=== PATIENT | female | born 1965 | race Caucasian/White ===

== ENCOUNTER → 2018-03-05 16:54 | Outpatient (CLI) | payer OTHER, SELFPAY ==
[2018-03-05 15:15] VITALS: BMI 35.8
[2018-03-12 11:17] LABS: HPV APTIMA, High Risk Negative (Negative)
--- OUTSIDE RECORDS SUMMARY | 2018-04-21 22:07 | XMS RPT_ITS ---
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 normal. No oropharyngeal exudate, posterior oropharyngeal edema, posterior oropharyngeal erythema or tonsillar abscesses. Eyes: Conjunctivae and lids are normal. Cardiovascular: Normal rate, regular rhythm, S1 normal and S2 normal. Exam reveals no friction rub. Pulmonary/Chest: Effort normal and breath sounds normal. She has no wheezes. She has no rhonchi. She has no rales. Lymphadenopathy: Head (right side): No submental, no submandibular, no tonsillar, no preauricular, no posterior auricular and no occipital adenopathy present. Head (left side): No submental, no submandibular, no tonsillar, no preauricular, no posterior auricular and no occipital adenopathy present. Right cervical: No superficial cervical and no posterior cervical adenopathy present. Left cervical: No superficial cervical and no posterior cervical adenopathy present. Neurological: She is oriented to person, place, and time. ASSESSMENT/PLAN: 1. Acute sinusitis, recurrence not specified, unspecified location - ICD9: 461.9, ICD10: J01.90 - Will begin treatment with Augmentin 875 mg PO BID for 10 days - Supportive care with plenty of fluids, rest, and analgesia prn. Reviewed red flags with patient and when to seek care sooner. The patient indicates understanding of these issues and agrees with the plan. Edilberto Armas PA-C CNOV Observed: 01/17/2018 Status: COMPLETED Source: [place] 3:15 PM [facility] REPOSITORY Office Visit (DOLORESWA) PARISHJOSE River ([id number]) 1965 F Date Time Provider Department 01/17/18 3:15 PM EDILBERTO ARMAS) PRASHANT During your visit today, we recorded the following information about you: Temperature Pulse Respiration Blood pressure 98.5 degrees 73/minute 14/minute 138/71 Weight 92.2 kg Edilberto Armas PA-C 01/17/2018 7:38 PM Signed Subjective HPI HPI Jose Lugo is a 52 year old female who presents today for CC of sinus pain and pressure that started ~5 days. Symptoms seem to have gotten progressively worse over the past 24 hours. States that she has used Mucinex D, which she states helped relieve some of the pressure. Also used tylenol and nasal saline. BP 138/71 Pulse 73 Temp 36.9 ?C (98.5 ?F) (Tympanic) Resp 14 Wt 92.2 kg (203 lb 3.2 oz) LMP 03/24/2013 BMI 36.00 kg/m? ALLERGIES Allergen Reactions - Abdelrahman Inhibitors Other: See Comments Facial swelling - Adhesive Unknown - Adhesive Tape (Imani* Rash - Latex Unknown - Lisinopril Unknown - Seasonal Allergies Intolerance - Sulfa (Sulfonamide * Hives ACTIVE PROBLEM LIST Depression Psoriatic Arthritis (Hcc) Allergic Reaction Benign Essential Hypertension Family History Problem Relation Age of Onset - Ovarian cancer Paternal Grandmother - other (Diabetes mellitus [Other]) Unknown colon/prostate CA - Cancer Father leukemia - other (Heart disease [Other]) Unknown - Hypertension Unknown - other (HTN [Other]) Mother - other (DM2 [Other]) Mother - other (M I [Other]) Mother - other (HTN [Other]) Father - other (DM2 [Other]) Father - other (MDS [Other]) Father - other (M I [Other]) Paternal Grandfather - Ovarian cancer Paternal Grandmother Social History Marital status: Spouse name: Years of education: Number of children: Social History Main Topics Smoking status: Former Smoker Packs/day: 0.00 Years: 0.00 Quit date: 10/09/1992 Smokeless tobacco: Never Used Alcohol use: Yes Comment: social Drug use: No Other Topics Concern Caffeine Concern Yes Comment: Uses caffeine; Amount: moderate (equiv to 1-3 8oz coffee/day) Review of Systems Constitutional: Negative for chills, fever and malaise/fatigue. HENT: Positive for congestion and sinus pain. Negative for ear pain and sore throat. Respiratory: Negative for cough, sputum production, shortness of breath and wheezing. Cardiovascular: Negative for chest pain. Neurological: Negative for headaches. Objective Physical Exam Constitutional: She is oriented to person, place, and time and well-developed, well-nourished, and in no distress. Vital signs are normal. HENT: Head: Normocephalic. Right Ear: Tympanic membrane, external ear and ear canal normal. No drainage. Tympanic membrane is not perforated, not erythematous, not retracted and not bulging. No middle ear effusion. Left Ear: Tympanic membrane and ear canal normal. No drainage. Tympanic membrane is not perforated, not erythematous, not retracted and not bulging. No middle ear effusion. Nose: Mucosal edema and rhinorrhea present. Right sinus exhibits maxillary sinus tenderness. Right sinus exhibits no frontal sinus tenderness. Left sinus exhibits maxillary sinus tenderness. Left sinus exhibits no frontal sinus tenderness. Mouth/Throat: Uvula is midline and mucous membranes are normal. No oropharyngeal exudate, posterior oropharyngeal edema, posterior oropharyngeal erythema or tonsillar abscesses. Eyes: Conjunctivae and lids are normal. Cardiovascular: Normal rate, regular rhythm, S1 normal and S2 normal. Exam reveals no friction rub. Pulmonary/Chest: Effort normal and breath sounds normal. She has no wheezes. She has no rhonchi. She has no rales. Lymphadenopathy: Head (right side): No submental, no submandibular, no tonsillar, no preauricular, no posterior auricular and no occipital adenopathy present. Head (left side): No submental, no submandibular, no tonsillar, no preauricular, no posterior auricular and no occipital adenopathy present. Right cervical: No superficial cervical and no posterior cervical adenopathy present. Left cervical: No superficial cervical and no posterior cervical adenopathy present. Neurological: She is oriented to person, place, and time. ASSESSMENT/PLAN: 1. Acute sinusitis, recurrence not specified, unspecified location - ICD9: 461.9, ICD10: J01.90 - Will begin treatment with Augmentin 875 mg PO BID for 10 days - Supportive care with plenty of fluids, rest, and analgesia prn. Reviewed red flags with patient and when to seek care sooner. The patient indicates understanding of these issues and agrees with the plan. MARBELLA Rivera PA-C 01/17/2018 3:24 PM Signed [facility] med heat treater helper as good alternative to netti pot - can get at any pharmacy [facility] or rhinaris gel- apply heft dollop to area 1-2 x/day for a week or two Referring Provider: SELF [200] Allergies As of Date: 01/17/2018 Noted Allergy Reaction ABDELRAHMAN INHIBITORS 11/07/2015 14 - Other: See Comments Comments: Facial swelling ADHESIVE 11/07/2015 16 - Unknown ADHESIVE TAPE (ROSINS) 11/06/2012 2 - Rash LATEX 11/07/2015 16 - Unknown LISINOPRIL 11/07/2015 16 - Unknown SEASONAL ALLERGIES 07/20/2010 5 - Intolerance SULFA (SULFONAMIDE ANTIBIOTICS) 07/20/2010 4 - Hives Date Reviewed: 01/17/2018 Reviewed by: Vanita Brantley Ma - Fully Assessed Reason for Visit: Sinus Problem [99] Cmt: x5 days Reason For Visit History Recorded Primary Visit Diagnosis:Acute sinusitis, recurrence not specified, unspecified location [J01.90] Order(s):amoxicillin-clavulanic acid (AUGMENTIN) 875-125 mg per tabletTake 1 tablet by mouth twice daily for 10 days.Disp: 14 tabletRfl: 0 Prescriptions as of 01/17/2018 Sig: VORTIOXETINE 10 MG TABLET Take 10 mg by mouth once yue* CYCLOBENZAPRINE 10 MG TABLET Take 1 tablet by mouth every * LOSARTAN 50 MG TABLET TAKE 1 TABLET BY MOUTH ONCE D* VENLAFAXINE 37.5 MG TABLET TAKE 1 TABLET BY MOUTH ONCE D* ALBUTEROL SULFATE 2.5 MG/3 ML* Use 3 mL via nebulizer every * ALBUTEROL SULFATE HFA 90 MCG/* Inhale 2 Puffs as instructed * EPINEPHRINE 0.3 MG/0.3 ML INJ* Use as directed MULTI VITAMIN ORAL Take 1 tablet by mouth once d* CYANOCOBALAMIN (VIT B-12) 100* Take 100 mcg by mouth once da* CHOLECALCIFEROL (VITAMIN D3) * Take 1,000 Units by mouth onc* CETIRIZINE 10 MG CAPSULE Take 1 tablet by mouth once d* AMOXICILLIN 875 MG-POTASSIUM * Take 1 tablet by mouth twice * METHYLPREDNISOLONE 4 MG TABLE* Take by mouth. As directed on* NAPROXEN 500 MG TABLET Take 1 tablet by mouth twice * SERTRALINE 100 MG TABLET TAKE ONE TABLET BY MOUTH DAILY FLUTICASONE 100 MCG-VILANTERO* Inhale 1 Inhalation as instru* Medication notes this encounter METHYLPREDNISOLONE 4 MG TABLETS IN A DOSE PACK >> Vanita Brantley Ma 01/17/2018 3:12 PM >> VANITA BRANTLEY MA Jan 17, 2018 3:12 PM completed NAPROXEN 500 MG TABLET >> Vanita Brantley Ma 01/17/2018 3:12 PM >> VANITA BRANTLEY MA SatJan 17, 2018 3:12 PM Not taking SERTRALINE 100 MG TABLET >> Vanita Brantley Cassandra 01/17/2018 3:12 PM >> VANITA BRANTLEY MA SatJan 17, 2018 3:12 PM Not taking FLUTICASONE 100 MCG-VILANTEROL 25 MCG/DOSE POWDER FOR INHALATION >> Vanita Brantley Cassandra 01/17/2018 3:11 PM >> VANITA BRANTLEY MA SatJan 17, 2018 3:11 PM Not using Problem List As Of Date 01/17/2018 Noted Resolved Depression [F32.9] Psoriatic arthritis [L40.50] Allergic reaction [T78.40XA] INVALID FOR* Benign essential hypertension [I10] Other instructions from your clinician: [facility] med heat treater helper as good alternative to netti pot - can get at any pharmacy [facility] or rhinaris gel- apply heft dollop to area 1-2 x/day for a week or two Prescriptions ordered this encounter Disp Refills Start End AMOXICILLIN 875 MG-POTASSIUM CLAVULA* 14 t* 0 01/17/2018 01/27/2018 Route: ORAL Sig: Take 1 tablet by mouth twice daily for 10 days. Encounter Status:Closed by EDILBERTO ARMAS on 01/17/18 CNCO Observed: 12/23/2017 Status: COMPLETED Source: [place] 12:00 AM [facility] RE[facility] Letter Text Fanny Peoples MD [facility] [address] [place] [address] Jose Lugo December 23, 2017 Jose Lugo [address] [place], [place] [id number] Dear Jose Lugo: Due to a change in your provider's schedule, it has become necessary to cancel the following appointment: Fanny Peoples MD Date: 02-07-18 Time: 3:30 We apologize for any inconvenience to you, however your provider would still like to see you. Please call us at [phone] to reschedule your appointment. Sincerely, Appointment Staff MDRD EGFR Collected: 11/23/2017 Status: F Source: [facility] 9:33 AM HEALTH SYSTEM REPOSITORY TYPE CODE TESTS RESULT OUT OF RANGE REFERENCE UNITS LAB LGFRF(LOINC >60mL/min/1.73m ) 2 eGFR >60 Result Comment: If the patient is , multiply the result by 1.210. Performed By: #### LGFR #### [facility] [address] [place], [place] [address] HEP. B SURFACE AG Collected: 11/23/2017 Status: F Source: [facility] 8:27 AM HEALTH SYSTEM REPOSITORY TYPE CODE TESTS RESULT OUT OF REFERENCE UNITS RANGE LAB HBSA(LOINC Negative ) Hep.B Surface Negative Ag Performed By: #### HBSAG #### [facility] [address] [place] [address] QUANTIFERON (RAPD TB) Collected: 11/23/2017 Status: F Source: [facility] 8:27 AM [facility] REPOSITORY TYPE CODE TESTS RESULT OUT OF REFERENCE UNITS RANGE LAB QUANX(LOIN C) Quantiferon (Rapd TB) SEE BELOW Result Comment: TB Result Negative NEGAT TB Antigen Response 0.00 <0.35 IU/mL Mitogen Response >10.00 >0.49 IU/mL Interpretation SEE BELOW No evidence of current or previous infection with Mycobacterium tuberculosis. Performing Laboratory: [facility] [address] [place] [address] Performed By: #### QUANX #### [facility] [address] [place] [address] HEMOGRAM/DIFF Collected: 11/23/2017 Status: F Source: [facility] 8:24 AM HEALTH SYSTEM REPOSITORY TYPE CODE TESTS RESULT OUT OF REFERENCE UNITS RANGE LAB LWBC(LOINC 4.8-10.8 thou/cmm ) WBC 7.8 LAB LRBC(LOINC 4.20-5.40 mil/cmm ) RBC 4.68 LAB LHGB(LOINC 12.0-16.0 g/dL ) Hgb 12.4 LAB LHCT(LOINC 37.0-47.0 % ) Hct 38.9 LAB LMCV(LOINC 81.0-99.0 fl ) MCV 83.1 LAB LMCH(LOINC 27.0-31.0 pg ) Low MCH 26.5 LAB LMCHC(LOIN 32.0-36.0 % C) Low MCHC 31.9 LAB LRDW(LOINC 11.5-15.9 % ) RDW 14.6 LAB LPLT(LOINC 150-400 thou/cmm ) Platelet 301 LAB LMPV(LOINC 7.1-10.5 fl ) MPV High 11.5 LAB LSEGT(LOIN % C) Seg Neutrophil 55.5 LAB LLYMP(LOIN % C) Lymphocyte 32.6 LAB LMNO(LOINC % ) Monocyte 7.1 LAB MAYI(LOINC % ) Eosinophil 4.0 LAB LBASO(LOIN % C) Basophil 0.8 LAB LSEGN(LOIN 3.00-5.67 thou/cmm C) Abs. Neut (ANC) 4.34 LAB LLYMN(LOIN 1.50-3.65 thou/cmm C) Abs. Lymph 2.54 LAB LMONN(LOIN 0.20-1.00 thou/cmm C) Abs. Gosper 0.55 LAB LEOSN(LOIN 0.00-0.41 thou/cmm C) Abs. Eosin 0.31 LAB LBASN(LOIN 0.00-0.08 thou/cmm C) Abs. Baso 0.06 Performed By: #### LCBCD #### [place] [address] BASIC PANEL Collected: 11/23/2017 Status: F Source: [facility] 8:24 AM HEALTH SYSTEM REPOSITORY TYPE CODE TESTS RESULT OUT OF REFERENCE UNITS RANGE LAB DISASTER DIRECTOR(LOINC) 136-145 mEq/L Sodium Blood 137 LAB LK(LOINC) 3.5-5.1 mEq/L Potassium Blood 3.8 LAB LCL(LOINC) 98-107 mEq/L Chloride Blood 106 LAB LCO2(LOINC 21-32 mEq/L ) CO2 Blood 28 LAB LGLU(LOINC 70-99 mg/dL ) Glucose High Blood 105 LAB LBUN(LOINC 7-25 mg/dL ) BUN Blood 12 LAB LCREA(LOIN 0.51-0.95 mg/dL C) Creatinine Blood 0.72 LAB LCA(LOINC) 8.5-10.1 mg/dL Calcium Blood 9.2 LAB LANGP(LOIN 8-20 C) Low Anion Gap 7 LAB LBNCR(LOIN 10-20 C) BUN/Creatinine 17 Ratio Performed By: #### LP8 #### [facility] [address] [place] [address] HEPATIC PANEL Collected: 11/23/2017 Status: F Source: [facility] 8:24 AM HEALTH SYSTEM REPOSITORY TYPE CODE TESTS RESULT OUT OF REFERENCE UNITS RANGE LAB LALB(LOINC 3.4-5.0 g/dL ) Albumin Blood 3.6 LAB LALT(LOINC 14-63 U/L ) ALT-SGPT Blood 14 LAB LALKP(LOIN 46-116 U/L C) Alk Phosphatase 113 LAB LTP(LOINC) 6.4-8.2 g/dL Total Protein 8.1 LAB LAGRT(LOIN 0.9-2.4 C) Low Albumin/Globulin 0.8 Ratio LAB LAST(LOINC 15-37 U/L ) Low AST-SGOT Blood 13 LAB LBILT(LOIN 0.2-1.0 mg/dL C) Total Bilirubin 0.4 LAB LDBIL(LOIN 0.00-0.20 mg/dL C) Direct Bilirubin <0.10 LAB LIBIL(LOIN 0.0-0.7 mg/dL C) Indirect Bilirubin 0.3 Performed By: #### LHEPA #### [facility] [address] [place] [address] MAMMOGRAM SCREENING Observed: 10/31/2017 Status: F Source: [facility] WITH CAD IF PERFORMED 11:01 AM HEALTH SYSTEM REPOSITORY Performed at [facility] APPROVED BY: Calixto Connor MD #[id number] - MAMMOGRAM SCREENING WITH CAD IF PERFORMED BILATERAL DIGITAL SCREENING MAMMOGRAM WITH CAD WITH MEDIOLATERAL OBLIQUE CRANIOCAUDAL: 10/31/2017 CLINICAL: Routine screening mammogram. Patient reports no breast problems. Comparison is made to exams dated: 10/17/2016 mammogram, 09/21/2015 mammogram, 08/04/2014 mammogram, 07/01/2013 mammogram, 05/16/2012 mammogram, and 04/25/2011 mammogram - [facility]. There are scattered fibroglandular elements in both breasts. Current study was also evaluated with a Computer Aided Detection (CAD) system. There is a biopsy clip in the right breast. No significant masses, calcifications, or other findings are seen in either breast. There has been no significant interval change. IMPRESSION: NEGATIVE There is no mammographic evidence of malignancy. A 1 year screening mammogram is recommended. Based on a modified Dory Model, this patient's calculated lifetime risk of developing breast cancer is 7.3%. The patient was notified of the results. Calixto perez/german:10/31/2017 10:47:02 Glass Etcher: Fior Sandoval (R)(Anitra), [facility] letter sent: Normal Birad 1 or 2 Mammogram BI-RADS: 1 Negative CNPN Observed: 09/18/2017 Status: COMPLETED Source: [place] 12:00 AM [facility] REPOSITORY Telephone (OBHanzo ArchivesEM) JOSE LUGO ([id number]) 1965 F Date Time Provider Department 09/18/17 FANNY PEOPLES During your visit today, we recorded the following information about you: Socorro Echeverria Psr 09/18/2017 3:23 PM Signed Jose Lugo is calling Fanny Peoples MD, MD today to request Orders for her mammogram screening. Patient has been identified by name and birthdate. Duration of symptoms: N/A Person calling: self Call patient at: at home [phone] (home) [phone] (cell) Was an appointment scheduled: Yes: Date/Time: 02-09-18 Closing statement: Socorro Echeverria Psr Fanny Peoples MD, MD 09/26/2017 12:05 AM Signed I have placed an ordrer in [employer] for such. Thank you, Fanny Peoples MD Allergies As of Date: 09/18/2017 Noted Allergy Reaction ABDELRAHMAN INHIBITORS 11/07/2015 14 - Other: See Comments Comments: Facial swelling ADHESIVE 11/07/2015 16 - Unknown ADHESIVE TAPE (ROSINS) 11/06/2012 2 - Rash LATEX 11/07/2015 16 - Unknown LISINOPRIL 11/07/2015 16 - Unknown SEASONAL ALLERGIES 07/20/2010 5 - Intolerance SULFA (SULFONAMIDE ANTIBIOTICS) 07/20/2010 4 - Hives Date Reviewed: 08/05/2017 Reviewed by: Rafi (Rn) ROSAS Shine - Fully Assessed Reason for Visit: Orders [681] Primary Visit Diagnosis:Encounter for screening mammogram for breast cancer [Z12.31] Order(s):[facility] SCREENING [[id number]] Order #: [id number] FUTURE Prescriptions as of 09/18/2017 Sig: VORTIOXETINE 10 MG TABLET Take 10 mg by mouth once yue* CYCLOBENZAPRINE 10 MG TABLET Take 1 tablet by mouth every * METHYLPREDNISOLONE 4 MG TABLE* Take by mouth. As directed on* NAPROXEN 500 MG TABLET Take 1 tablet by mouth twice * VENLAFAXINE 37.5 MG TABLET TAKE 1 TABLET BY MOUTH ONCE D* SERTRALINE 100 MG TABLET TAKE ONE TABLET BY MOUTH DAILY FLUTICASONE 100 MCG-VILANTERO* Inhale 1 Inhalation as instru* ALBUTEROL SULFATE 2.5 MG/3 ML* Use 3 mL via nebulizer every * ALBUTEROL SULFATE HFA 90 MCG/* Inhale 2 Puffs as instructed * EPINEPHRINE 0.3 MG/0.3 ML INJ* Use as directed MULTI VITAMIN ORAL Take 1 tablet by mouth once d* CYANOCOBALAMIN (VIT B-12) 100* Take 100 mcg by mouth once da* CHOLECALCIFEROL (VITAMIN D3) * Take 1,000 Units by mouth onc* CETIRIZINE 10 MG CAPSULE Take 1 tablet by mouth once d* Problem List As Of Date 09/18/2017 Noted Resolved Depression [F32.9] Psoriatic arthritis [L40.50] Allergic reaction [T78.40XA] INVALID FOR* Benign essential hypertension [I10] Encounter Status:Closed by FANNY PEOPLES MD on 09/26/17 OBSOLETE Observed: 08/13/2017 Status: COMPLETED Source: [place] 12:00 AM [facility] REPOSITORY Refill (AGFAMPLO) JOSE LUGO ([id number]) 1965 F Date Time Provider Department 08/13/17 ARABELLA DOBBINS During your visit today, we recorded the following information about you: Shameka Pitts CMA 08/13/2017 9:24 AM Signed Pharmacy faxed requesting the following refill. Patient's last appointment: with Arabella Dobbins MD was 06/05/2016 Pending Prescriptions Disp Refills LOSARTAN 50 MG TABLET 30 tablet 0 Sig: TAKE 1 TABLET BY MOUTH ONCE DAILY. PEÑA: No/ Patient needs an appointment before any more refills Patient Phone numbers: [phone] (home) Request is for script(s) to be escript to pharmacy. AHRI Bailey CMA 08/16/2017 3:30 PM Signed Patient was notified and she has a new PCP in [place]. Shameka Pitts CMA Allergies As of Date: 08/13/2017 Noted Allergy Reaction ABDELRAHMAN INHIBITORS 11/07/2015 14 - Other: See Comments Comments: Facial swelling ADHESIVE 11/07/2015 16 - Unknown ADHESIVE TAPE (ROSINS) 11/06/2012 2 - Rash LATEX 11/07/2015 16 - Unknown LISINOPRIL 11/07/2015 16 - Unknown SEASONAL ALLERGIES 07/20/2010 5 - Intolerance SULFA (SULFONAMIDE ANTIBIOTICS) 07/20/2010 4 - Hives Date Reviewed: 08/05/2017 Reviewed by: Rafi TellesRn) ROSAS Shine - Fully Assessed Reason for Visit: Refill Request [94] Prescriptions as of 08/13/2017 Sig: VORTIOXETINE 10 MG TABLET Take 10 mg by mouth once yue* CYCLOBENZAPRINE 10 MG TABLET Take 1 tablet by mouth every * METHYLPREDNISOLONE 4 MG TABLE* Take by mouth. As directed on* NAPROXEN 500 MG TABLET Take 1 tablet by mouth twice * LOSARTAN 50 MG TABLET TAKE 1 TABLET BY MOUTH ONCE D* VENLAFAXINE 37.5 MG TABLET TAKE 1 TABLET BY MOUTH ONCE D* SERTRALINE 100 MG TABLET TAKE ONE TABLET BY MOUTH DAILY FLUTICASONE 100 MCG-VILANTERO* Inhale 1 Inhalation as instru* ALBUTEROL SULFATE 2.5 MG/3 ML* Use 3 mL via nebulizer every * ALBUTEROL SULFATE HFA 90 MCG/* Inhale 2 Puffs as instructed * EPINEPHRINE 0.3 MG/0.3 ML INJ* Use as directed MULTI VITAMIN ORAL Take 1 tablet by mouth once d* CYANOCOBALAMIN (VIT B-12) 100* Take 100 mcg by mouth once da* CHOLECALCIFEROL (VITAMIN D3) * Take 1,000 Units by mouth onc* CETIRIZINE 10 MG CAPSULE Take 1 tablet by mouth once d* Problem List As Of Date 08/13/2017 Noted Resolved Depression [F32.9] Psoriatic arthritis [L40.50] Allergic reaction [T78.40XA] INVALID FOR* Benign essential hypertension [I10] Encounter Status:Closed by ARABELLA DOBBINS MD on 08/13/17 PROGRESS Observed: 08/07/2017 Status: COMPLETED Source: [place] 2:55 PM [facility] REPOSITORY HNO ID: [id number] Author: Giselle Dunlap Service: (none) Author Type: LICENSED NURSE Type: Progress Notes Filed: 08/07/2017 2:56 PM Note Text: Message left on voicemail to call office to set up ED follow up appointment. Giselle Dunlap LPN CNPTOUTREACH Observed: 08/07/2017 Status: COMPLETED Source: [place] 12:00 AM [facility] REPOSITORY Patient Outreach (AGINTBA) JOSE LUGO ([id number]) 1965 F Date Time Provider Department 08/07/17 GISELLE DUNLAP LPN During your visit today, we recorded the following information about you: Giselle Dunlap LPN 08/07/2017 2:56 PM Signed Message left on voicemail to call office to set up ED follow up appointment. Giselle Dunlap LPN Allergies As of Date: 08/07/2017 Noted Allergy Reaction ABDELRAHMAN INHIBITORS 11/07/2015 14 - Other: See Comments Comments: Facial swelling ADHESIVE 11/07/2015 16 - Unknown ADHESIVE TAPE (ROSINS) 11/06/2012 2 - Rash LATEX 11/07/2015 16 - Unknown LISINOPRIL 11/07/2015 16 - Unknown SEASONAL ALLERGIES 07/20/2010 5 - Intolerance SULFA (SULFONAMIDE ANTIBIOTICS) 07/20/2010 4 - Hives Date Reviewed: 08/05/2017 Reviewed by: Rafi (Rn) ROSAS Shine - Fully Assessed Reason for Visit: Patient Outreach [Other] Cmt: ED follow up Prescriptions as of 08/07/2017 Sig: VORTIOXETINE 10 MG TABLET Take 10 mg by mouth once yue* CYCLOBENZAPRINE 10 MG TABLET Take 1 tablet by mouth every * METHYLPREDNISOLONE 4 MG TABLE* Take by mouth. As directed on* NAPROXEN 500 MG TABLET Take 1 tablet by mouth twice * LOSARTAN 50 MG TABLET TAKE 1 TABLET BY MOUTH ONCE D* VENLAFAXINE 37.5 MG TABLET TAKE 1 TABLET BY MOUTH ONCE D* SERTRALINE 100 MG TABLET TAKE ONE TABLET BY MOUTH DAILY FLUTICASONE 100 MCG-VILANTERO* Inhale 1 Inhalation as instru* ALBUTEROL SULFATE 2.5 MG/3 ML* Use 3 mL via nebulizer every * ALBUTEROL SULFATE HFA 90 MCG/* Inhale 2 Puffs as instructed * EPINEPHRINE 0.3 MG/0.3 ML INJ* Use as directed MULTI VITAMIN ORAL Take 1 tablet by mouth once d* CYANOCOBALAMIN (VIT B-12) 100* Take 100 mcg by mouth once da* CHOLECALCIFEROL (VITAMIN D3) * Take 1,000 Units by mouth onc* CETIRIZINE 10 MG CAPSULE Take 1 tablet by mouth once d* Problem List As Of Date 08/07/2017 Noted Resolved Depression [F32.9] Psoriatic arthritis [L40.50] Allergic reaction [T78.40XA] INVALID FOR* Benign essential hypertension [I10] Encounter Status:Closed by GISELLE DUNLAP LPN on 08/07/17 ED NOTE Observed: 08/05/2017 Status: COMPLETED Source: [place] 6:31 AM [facility] REPOSITORY HNO ID: [id number] Author: Rafi Shine (Rn), RN Service: Emergency Medicine Author Type: Registered Nurse Type: ED Notes Filed: 08/05/2017 6:32 AM Note Text: Pain is much improved. States she is ready to go home. Cleared for discharge by physician. TROPONIN I Collected: 08/05/2017 Status: F Source: [facility] 5:25 AM HEALTH SYSTEM REPOSITORY TYPE CODE TESTS RESULT OUT OF REFERENCE UNITS RANGE LAB LTRP(LOINC) <=0.07 ng/mL Troponin I <0.03 Performed By: #### LTRP #### [facility] [address] [place] [address] ED NOTE Observed: 08/05/2017 Status: COMPLETED Source: [place] 5:20 AM [facility] REPOSITORY HNO ID: [id number] Author: Rafi ShineRn), RN Service: Emergency Medicine Author Type: Registered Nurse Type: ED Notes Filed: 08/05/2017 5:29 AM Note Text: Patient informed: the name of medication, why we are giving it, possible side effects, what they may expect to feel, and was offered a chance to ask questions, prior to the administration of toradol and norflex. ED NOTE Observed: 08/05/2017 Status: COMPLETED Source: [place] 5:03 AM [facility] REPOSITORY HNO ID: [id number] Author: Rafi ShineRn), RN Service: Emergency Medicine Author Type: Registered Nurse Type: ED Notes Filed: 08/05/2017 5:16 AM Note Text: RT at bedside for EKG ED PROV NOTE Observed: 08/05/2017 Status: COMPLETED Source: [place] 5:01 AM [facility] REPOSITORY HNO ID: [id number] Author: Eliza Harris DO Service: Emergency Medicine Author Type: Physician Type: ED Provider Notes Filed: 08/05/2017 6:08 AM Note Text: ED Provider Note Patient Name: Jose Lugo SERVICE DATE: 08/05/17 History Patient presents with: Pain (Shoulder Pain) Jose Lugo is a 52 year old female with history of multiple chronic medical problems who presents with Pain (Shoulder Pain). Patient took aspirin prior to arrival. - Symptoms began 1.5 days prior to arrival. - Severity: moderate - Timing: constant - Quality: sharp - Pain (Shoulder Pain) is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
== END ==
PROVIDERS: Referring Provider Nurse Practitioner Women's Health; Visit Provider Nurse Practitioner Women's Health
DX: Z12.4 Encounter for screening for malignant neoplasm of cervix (principal)
CPT/HCPCS: 87624; 88175; G0145

== ENCOUNTER → 2018-11-03 11:51 | Outpatient (CLI) | payer OTHER, SELFPAY ==
[2018-03-05 15:15] VITALS: BMI 35.8
--- NOTE | 2018-11-03 11:56 | BI_ITS ---
MAMMOGRAPHY - BILATERAL SCREENING REASON FOR EXAM: Female, 53 years old. Routine annual screening examination. PERTINENT HISTORY: Non-contributory. Remote left excisional breast biopsy. TECHNIQUE: Digital bilateral breast stella (3D mammographic acquisition) in the CC and MLO projections. 2-D mediolateral oblique (MLO) and craniocaudad (CC) views of both breasts were obtained. CAD: Full Field Digital Mammography with Computer Added Detection was performed. COMPARISON: Comparison is made with prior examination dated October 17, 2016. FINDINGS: Breast Composition: There are scattered areas of fibroglandular density. There are no dominant masses or suspicious calcifications. Stable small benign-appearing bilateral axillary lymph nodes. No other significant abnormalities are identified. There has been no significant change since the prior study. BI/SCREEN MAMM (CAD) W/STELLA BILAT IMPRESSION: Stable bilateral screening mammogram. Yearly follow-up mammogram recommended. (A) ASSESSMENT CATEGORY: BIRADS Category 2: Benign. A letter regarding these results will be sent to the patient by the facility within 30 days. Approximately 10% of breast cancers are not detected by mammography. A normal mammogram should not delay biopsy of a clinically suspicious abnormality. [id number] Electronically Signed: Prakash Torres, at 13:50 EDT , Service support ,
== END ==
PROVIDERS: Family Provider Nurse Practitioner Adult Health; PCP Nurse Practitioner Adult Health; Referring Provider Nurse Practitioner Women's Health; Visit Provider Nurse Practitioner Women's Health
DX: Z12.31 Encounter for screening mammogram for malignant neoplasm of breast (principal)
CPT/HCPCS: 77063; 77067

== ENCOUNTER → 2019-11-05 10:56 | Outpatient (CLI) | payer OTHER, SELFPAY ==
[2019-09-14 10:16] VITALS: BMI 35.8
--- NOTE | 2019-11-05 10:57 | BI_ITS ---
MAMMOGRAPHY - BILATERAL SCREENING REASON FOR EXAM: Female, 54 years old. Routine annual screening examination. PERTINENT HISTORY: Non-contributory. Remote left excisional breast biopsy. TECHNIQUE: Digital bilateral breast stella (3D mammographic acquisition) in the CC and MLO projections. 2-D mediolateral oblique (MLO) and craniocaudad (CC) views of both breasts were obtained. CAD: Full Field Digital Mammography with Computer Added Detection was performed. COMPARISON: Comparison is made with prior study dated 11/03/2018. FINDINGS: Breast Composition: There are scattered areas of fibroglandular density. There are no dominant masses or suspicious calcifications. Stable small benign-appearing bilateral axillary lymph nodes. No other significant abnormalities are identified. There has been no significant change since the prior study. BI/SCREEN MAMM (CAD) W/STELLA BILAT IMPRESSION: Stable bilateral screening mammogram. Yearly follow-up mammogram recommended. (A) ASSESSMENT CATEGORY: BIRADS Category 3: Probably Benign - Short-Interval Follow-up Suggested. A letter regarding these results will be sent to the patient by the facility within 30 days. Approximately 10% of breast cancers are not detected by mammography. A normal mammogram should not delay biopsy of a clinically suspicious abnormality. [id number] Electronically Signed: Prakash Torres, at 12:30 EDT , Service support ,
== END ==
PROVIDERS: PCP Nurse Practitioner Adult Health; Referring Provider Nurse Practitioner Women's Health; Visit Provider Nurse Practitioner Women's Health
DX: Z12.31 Encounter for screening mammogram for malignant neoplasm of breast (principal)
CPT/HCPCS: 77063; 77067

== ENCOUNTER → 2020-11-07 15:23 | Outpatient (CLI) | payer OTHER, SELFPAY ==
[2020-09-14 12:47] VITALS: BMI 38.0
--- NOTE | 2020-11-07 15:26 | BI_ITS ---
MAMMOGRAPHY - BILATERAL SCREENING REASON FOR EXAM: Female, 55 years old. Routine annual screening examination. PERTINENT HISTORY: Non-contributory. Remote left excisional breast biopsy. TECHNIQUE: Digital bilateral breast stella (3D mammographic acquisition) in the CC and MLO projections. 2-D mediolateral oblique (MLO) and craniocaudad (CC) views of both breasts were obtained. CAD: Full Field Digital Mammography with Computer Added Detection was performed. COMPARISON: Comparison is made with prior study 11/05/2019 and 11/03/2018. FINDINGS: Breast Composition: There are scattered areas of fibroglandular density. There are no dominant masses or suspicious calcifications. Stable benign appearing bilateral axillary lymph nodes. No other significant abnormalities are identified. There has been no significant change since the prior study. BI/SCRN MAMM (CAD)W/STELLA BILAT IMPRESSION: Stable bilateral screening mammogram. Yearly follow-up mammogram recommended. (A) ASSESSMENT CATEGORY: BIRADS Category 2: Benign. A letter regarding these results will be sent to the patient by the facility within 30 days. Approximately 10% of breast cancers are not detected by mammography. A normal mammogram should not delay biopsy of a clinically suspicious abnormality. [id number] Electronically Signed: Prakash Torres MD at 16:01 EDT , Service support ,
== END ==
PROVIDERS: PCP Nurse Practitioner Adult Health; Referring Provider Nurse Practitioner Women's Health; Visit Provider Nurse Practitioner Women's Health
DX: Z12.31 Encounter for screening mammogram for malignant neoplasm of breast (principal)
CPT/HCPCS: 77063; 77067

== ENCOUNTER → 2021-11-08 | Outpatient (CLI) | payer OTHER, SELFPAY ==
--- NOTE | 2021-11-08 15:32 | BI_ITS ---
MAMMOGRAPHY - BILATERAL SCREENING 3-D TOMOSYNTHESIS REASON FOR EXAM: Female, 56 years old. screening for breast cancer PERTINENT HISTORY: No significant family history. TECHNIQUE: 2-D mammograms and 3-D Tomosynthesis of the breast (s) were performed. CAD was performed. COMPARISON: 11/07/2020 FINDINGS: The breast composition is composed of scattered fibroglandular density. Scattered benign calcifications are seen. No dense spiculated masses or suspicious microcalcifications are identified. No architectural distortion is identified. There is no skin thickening or retraction. There has been no significant change since the prior study. BI/SCRN MAMM (CAD)W/STELLA BILAT IMPRESSION: No mammographic signs of malignancy. Routine yearly mammograms recommended. ASSESSMENT CATEGORY: BIRADS Category 1: Negative. A letter regarding these results will be sent to the patient by the facility within 30 days. FOLLOW UP RECOMMENDATION: Yearly follow up mammogram recommended. (A) Approximately 10% of breast cancers are not detected by mammography. A normal mammogram should not delay biopsy of a clinically suspicious abnormality. Electronically Signed: Aquilino Irene MD at 16:29 EDT ,
== END | disposition home or self-care (01) ==
LOC: OPBI 15:30
PROVIDERS: PCP Nurse Practitioner Adult Health; Visit Provider Nurse Practitioner Women's Health
DX: Z12.31 Encounter for screening mammogram for malignant neoplasm of breast (principal)
CPT/HCPCS: 77063; 77067

== ENCOUNTER → 2022-10-03 | Outpatient (CLI) | payer OTHER, SELFPAY ==
[2022-10-08 14:08] LABS: HPV APTIMA, High Risk Negative (Negative)
== END | disposition home or self-care (01) ==
LOC: LABSPEC 14:31
PROVIDERS: PCP Nurse Practitioner Adult Health; Referring Provider Nurse Practitioner Women's Health; Visit Provider Nurse Practitioner Women's Health
DX: Z12.4 Encounter for screening for malignant neoplasm of cervix (principal); Z78.0 Asymptomatic menopausal state
CPT/HCPCS: 87624; 88175; G0145

== ENCOUNTER → 2022-11-09 | Outpatient (CLI) | payer OTHER, SELFPAY ==
--- NOTE | 2022-11-09 15:09 | BI_ITS ---
MAMMOGRAPHY - BILATERAL SCREENING REASON FOR EXAM: Female, 57 years old. Routine annual screening examination. PERTINENT HISTORY: Remote left excisional breast biopsy with removal of fatty benign tumor. Remote right needle biopsy. No reported personal or family history of breast cancer. TECHNIQUE: Digital bilateral breast stella (3D mammographic acquisition) in the CC and MLO projections. 2-D mediolateral oblique (MLO) and craniocaudad (CC) views of both breasts were obtained. CAD: Full Field Digital Mammography with Computer Added Detection was performed. COMPARISON: Screening mammogram from 11/08/2021, 11/07/2020. FINDINGS: Breast Composition: There are scattered areas of fibroglandular density. There are no dominant masses or suspicious calcifications. There is a stable biopsy marker in the left breast. Stable benign-appearing calcifications. No other significant abnormalities are identified. There has been no significant change since the prior study. BI/SCRN MAMM (CAD)W/STELLA BILAT IMPRESSION: Stable bilateral screening mammogram. Yearly follow-up mammogram recommended. (A) ASSESSMENT CATEGORY: BIRADS Category 2: Benign. A letter regarding these results will be sent to the patient by the facility within 30 days. Approximately 10% of breast cancers are not detected by mammography. A normal mammogram should not delay biopsy of a clinically suspicious abnormality. Electronically Signed: Aniceto Tanner DO at 8:55 EDT ,
== END | disposition home or self-care (01) ==
PROVIDERS: PCP Family Medicine; Referring Provider Nurse Practitioner Women's Health; Visit Provider Nurse Practitioner Women's Health
DX: Z12.31 Encounter for screening mammogram for malignant neoplasm of breast (principal)
CPT/HCPCS: 77063; 77067

== ENCOUNTER → 2023-11-19 | Outpatient (CLI) | payer OTHER, SELFPAY ==
--- NOTE | 2023-11-19 12:48 | BI_ITS ---
MAMMOGRAPHY - BILATERAL SCREENING REASON FOR EXAM: Female, 58 years old. Routine annual screening examination. PERTINENT HISTORY: Non-contributory. Remote left excisional breast biopsy in the right needle breast biopsy. TECHNIQUE: Digital bilateral breast stella (3D mammographic acquisition) in the CC and MLO projections. 2-D mediolateral oblique (MLO) and craniocaudad (CC) views of both breasts were obtained. CAD: Full Field Digital Mammography with Computer Added Detection was performed. COMPARISON: Comparison is made with prior examination dated November 09, 2022 and November 08, 2021. FINDINGS: Breast Composition: There are scattered areas of fibroglandular density. There are no dominant masses or suspicious calcifications. Stable small benign appearing bilateral axillary lymph nodes. No other significant abnormalities are identified. There has been no significant change since the prior study. BI/SCRN MAMM (CAD)W/STELLA BILAT IMPRESSION: Stable bilateral screening mammogram. Yearly follow-up mammogram recommended. (A) ASSESSMENT CATEGORY: BIRADS Category 2: Benign. A letter regarding these results will be sent to the patient by the facility within 30 days. Approximately 10% of breast cancers are not detected by mammography. A normal mammogram should not delay biopsy of a clinically suspicious abnormality. [id number] Electronically Signed: Prakash Torres MD at 13:41 EDT ,
== END | disposition home or self-care (01) ==
PROVIDERS: PCP Family Medicine; Referring Provider Family Medicine; Visit Provider Family Medicine
DX: Z12.31 Encounter for screening mammogram for malignant neoplasm of breast (principal)
CPT/HCPCS: 77063; 77067

== ENCOUNTER → 2024-11-27 | Outpatient (CLI) | payer OTHER, SELFPAY ==
--- NOTE | 2024-11-27 14:27 | BI_ITS ---
EXAM: SCRN MAMM (CAD)W/STELLA BILAT DATE: 11/27/2024 CLINICAL HISTORY: F, Age 59 y/o , SCREENING No family history. Remote left excisional breast biopsy. TECHNIQUE: Procedure Code: [id number] Modality: MG Procedure: SCRN MAMM (CAD)W/STELLA BILAT COMPARISON: Prior exam(s) dated November 19, 2023.. FINDINGS: TISSUE DENSITY: The breasts are almost entirely fatty. Bilateral Breast Mammographic Findings: No significant masses, calcifications or other abnormalities are identified. Stable small benign-appearing bilateral axillary lymph nodes. No suspicious masses, areas of developing architectural distortion, or suspicious calcifications. There has been no significant interval change. BI/SCRN MAMM (CAD)W/STELLA BILAT IMPRESSION: Stable bilateral screening mammogram. OVERALL FINAL ASSESSMENT BI-RADS 2: BENIGN RECOMMENDATION: Routine annual follow-up in 1 Year A letter with findings and recommendations will be mailed to the patient. Reading Location: [facility]
--- OUTSIDE RECORDS SUMMARY | 2024-11-27 20:13 | XMS RPT_ITS | CCD ---
Author Organization [facility] Care Team Providers Care Safety Instructor Name Role Phone Esterle, Giselle Attending Unavailable Esterle, Giselle Referring Unavailable Esterle, Giselle Primary Care Unavailable Mayors, Moises Attending Unavailable Esterle, Giselle Referring Unavailable Esterle, Giselle Primary Care Unavailable Mayors, Moises Attending Unavailable Esterle, Giselle Referring Unavailable Esterle, Giselle Primary Care Unavailable Galileo BINGO CHECKER.Toan TORRES Primary Care Provider Galileo CERT OCCUPATIONAL THERAPY ASST, CERT OCCUPATIONAL THERAPY ASST-C Toan Primary Care Provider Galileo CERT OCCUPATIONAL THERAPY ASST, CERT OCCUPATIONAL THERAPY ASST-C Toan Referring Provider [phone] John CERT OCCUPATIONAL THERAPY ASST, CERT OCCUPATIONAL THERAPY ASST-C Caridad Attending Provider [phone] Glaileo BINGO CHECKER.Toan TORRES Primary Care Provider Galileo BINGO CHECKER.Toan TORRES Primary Care Provider Galileo CERT OCCUPATIONAL THERAPY ASST, CERT OCCUPATIONAL THERAPY ASST-C Toan Primary Care Provider [phone] Galileo CERT OCCUPATIONAL THERAPY ASST, CERT OCCUPATIONAL THERAPY ASST-C Toan Referring Provider John CERT OCCUPATIONAL THERAPY ASST, CERT OCCUPATIONAL THERAPY ASST-C Caridad Attending Provider Allison DO, Giselle M Primary Care Provider Galileo BINGO CHECKER.Toan TORRES Primary Care Provider TOAN GURROLA Primary Care Unavailable REGAN HILL Referring Unavailable REGAN HILL Referring Unavailable TOAN GURROLA Primary Care Unavailable REGAN HILL Referring Unavailable TOAN GURROLA Primary Care Unavailable REGAN HILL Referring Unavailable TOAN GURROLA Primary Care Unavailable REGAN HILL Referring Unavailable TOAN GURROLA Primary Care Unavailable TERESITA MATUTE Attending Unavailable GISELLE COOPER Primary Care Unavailable TOAN GURROAL Primary Care Unavailable YUKIREGAN Referring Unavailable TOAN GURROLA M Primary Care Unavailable YUKIREGAN Referring Unavailable TOAN GURROLA M Primary Care Unavailable REGAN HILL Referring Unavailable Giselle Cooper MD Primary Care Provider GISELLE COOPER Primary Care Unavailable ESSIE GEE Attending Unavailable TOAN GURROLA Primary Care Unavailable TIMMY LEMUS Attending Unavailable Giselle Cooper Referring Unavailable Giselle Cooper Attending Unavailable Giselle Cooper Primary Care Unavailable Allergies Allergy Classification Reported Allergen(s) Allergy Type Date of Onset Reaction(s) Facility Adhesive Tape (1 source) Adhesive Tape Substance Allergy 6 [facility] Latex (1 source) Latex Substance Allergy 6 [facility] Pollen (1 source) Pollen Substance Allergy 1 [facility] Sulfonamides (antibiotic) (1 source) Sulfonamides (Antibiotic) Drug Allergy 1 Hives [facility] Sulfur (1 source) Sulfur Drug Allergy 9 [facility] (20 sources) Adhesive agent; Translations: [ADHESIVE] Propensity to adverse reactions to drug (disorder) [address] [facility] (20 sources) Adhesive Tape; Translations: [ADHESIVE TAPE (ROSINS)] Propensity to adverse reactions (disorder) [address] [facility] (20 sources) Angiotensin Converting Enzyme (Kiara) Inhibitors; Translations: [KIARA INHIBITORS] Propensity to adverse reactions to drug (disorder) 6 Other: See Comments, Other, Unknown [facility] (20 sources) Latex; Translations: [LATEX] Propensity to adverse reactions to drug (disorder) [address] [facility] (20 sources) Lisinopril; Translations: [LISINOPRIL] Drug Allergy [address] [facility] (20 sources) Seasonal allergy; Translations: [SEASONAL ALLERGIES] Propensity to adverse reactions (disorder) [address] [facility] (20 sources) Sulfonamides (Antibiotic); Translations: [SULFA (SULFONAMIDE ANTIBIOTICS)] Propensity to adverse reactions to drug (disorder) [address] [facility] (5 sources) Adhesive Tape Drug Intolerance 6 [facility] (5 sources) Pollen Allergy to substance 1 [facility] (5 sources) Sulfonamides (Antibiotic) Drug Intolerance 1 [facility] (5 sources) Sulfur Drug Allergy 9 [facility] (6 sources) Wound Dressing Adhesive Drug Allergy 3 Rash [facility] Medications Current Medications Medication Drug Class(es) Dates Sig (Normalized) Sig (Original) [id number] 200 actuat albuterol 0.09 mg/actuat metered dose inhaler (20 sources) beta2-Adrenergic Agonist Start: 01-25-2022 take 2.5 mg by inhalation every six hours as needed for dyspnea and dyspnea albuterol (PROVENTIL) 5 mg/mL nebu Indications: SOB (shortness of breath) INHALE 0.5 ML INSTRUCTED EVERY 6 HOURS NEEDED FOR WHEEZING/SHORTNES S OF BREATH. 20 mL 01/25/2022 Active Start: 01-18-2022 take 2.5 mg by inhal ation every six hours as needed for dyspnea and dyspnea albuterol (PROVENTIL) 5 mg/mL nebu Indications: SOB (shortness of breath) Inhale 0.5 mL as instructed every 6 hours as needed for wheezing/shortness of breath. 20 mL 0 01/18/2022 Active Start: 11-25-2019 take 2 puff(s) by in halation every four hours as needed for wheezing albuterol HFA (PROVENTIL HFA, VENTOLIN HFA) 90 mcg/actuation inhaler Inhale 2 puffs as instructed every 4 hours as needed for wheezing/shortness of breath. 18 g 09/27/2024 Active Start: 03-05-2018 take 1 puff(s) by in halation every six hours Albuterol Sulfate (Proair Hfa) 90 mcg/actuation HFA aerosol inhaler Active 1 PUFF INHALATION EVERY 6 HOURS March 05, 2018 1:00am Start: 04-09-2016 albuterol (PRO VENTIL) 2.5 mg /3 mL (0.083 %) nebulizer solution Indications: Allergic bronchitis, mild intermittent, uncomplicated Use 3 mL via nebulizer every 6 hours as needed for Wheezing/Shortness of Breath. 100 Vial 04/09/2016 Active Comment on above: Use 3 mL via nebuliz er every 6 hours as needed for Wheezing/Shortness of Breath. Inhale 2 Puffs as in structed every 4 hours as needed for Wheezing/Shortness of Breath. Inhale 0.5 mL as ins tructed every 6 hours as needed for wheezing/shortness of breath. albuterol 0.833 mg/ml / ipratropium bromide 0.167 mg/ml inhalation solution (1 source) Anticholinergic, beta2-Adrenergic Agonist Start: take 3 mL by inhalation every four hours as needed ipratropium-albut leyla (DUONEB) 0.5 mg-3 mg(2.5 mg base)/3 mL nebu Inhale 3 mL as instructed every 4 hours as needed for wheezing/shortnes s of breath. 30 each 09/27/2024 Active amoxicillin 875 mg / clavulanate 125 mg oral tablet (9 sources) Penicillin-class Antibacterial Start: 023 End: 023 take 1 tablet by mouth twice daily amoxicillin-clavu lanic acid (AUGMENTIN) 875-125 mg per tablet Indications: Bacterial sinusitis Take 1 tablet by mouth twice daily for 7 days. 14 tablet 0 04/15/2022 04/22/2022 Active Start: 01-23-2022 End: 04-15-2022 take 1 tablet by mouth every twelve hours amoxicillin-clavulanic acid (AUGMENTIN) 875-125 mg per tablet Take 1 tablet by mouth every 12 hours. 0 01/23/2022 04/15/2022 Discontinued (Course of therapy completed) Start: 07-12-2021 End: 07-19-2021 take 1 tablet by mouth every twelve hours amoxicillin-clavulanic acid (AUGMENTIN) 875-125 mg per tablet Indications: Rhinosinusitis Take 1 tablet by mouth every 12 hours for 7 days. 20 tablet 0 07/12/2021 07/19/2021 Active Comment on above: Take 1 tablet by fritz th every 12 hours for 7 days. Take 1 tablet by fritz th every 12 hours. Take 1 tablet by fritz twice daily for 7 days. azelastine hydrochloride 0.137 mg/actuat metered dose nasal spray (10 sources) Histamine-1 Receptor Antagonist Start: 5 take 2 spray(s) nasal route once daily azelastine 0.1% nasal spray Use 2 sprays in each nostril once daily. 06/25/2024 Active Start: 02-07-2022 End: 04-15-2022 take 1 spray(s) nasal route twice daily azelastine (ASTELIN, ASTEPRO) 0.1% nasal spray Indications: Environmental allergies Use 1 [place] in each nostril twice daily. 30 mL 2 02/07/2022 04/15/2022 Discontinued (Course of therapy completed) Comment on above: Use 1 [place] in each nostril twice daily. benzonatate 100 mg oral capsule (20 sources) Non-narcotic Antitussive Start: 4 take 1-2 capsules by mouth three times daily as needed for cough benzonatate (TESSALON PERLES) 100 mg capsule Indications: Acute cough Take 1-2 capsules by mouth three times a day as needed for cough. 42 capsule 09/28/2023 Active Start: 07-19-2021 End: 04-15-2022 take 1 capsule by mouth every eight hours as needed for cough and cough benzonatate (TESSALON PERLE) 100 mg capsule Indications: Cough Take 1 capsule by mouth three times daily as needed. 30 capsule 0 07/19/2021 04/15/2022 Discontinued (Course of therapy completed) Comment on above: Take 1 capsule by mo [facility] three times daily as needed. Blood Pressure Monitor (20 sources) Start: 08-31-2019 Blood Pressure Monitor Indications: Benign essential hypertension 1 Each as directed. 1 Kit 08/31/2019 Active Start: 08-31-2019 Blood Pressure Monitor Indications: Benign essential hypertension 1 Each as directed. 1 Kit 0 08/31/2019 Active Comment on above: 1 Each as directed. cetirizine hydrochloride 10 mg oral capsule (8 sources) Histamine-1 Receptor Antagonist Start: 8 take 1 capsule by mouth once daily cetirizine 10 mg capsule Active 10 MG PO DAILY March 05, 2018 1:00am take 1 tablet by mouth once yue y cetirizine (ZYRTEC) 10 mg tablet Take 1 tablet by mouth once daily. Active cholecalciferol 0.025 mg oral tablet (20 sources) Vitamin D take 1 tablet by mouth once daily cholecalciferol (VITAMIN D3) 1,000 unit tab tablet Take 1,000 Units by mouth once daily. Active Comment on above: Take 1,000 Units by mouth once daily. clobetasol propionate 0.5 mg/ml topical cream (20 sources) Corticosteroid Start: Clobetasol Active 1 APPLIC TOPICAL DAILY September 14, 2020 12:00am Start: 02-10-2020 clobetasol (TE MOVATE) 0.05 % ointment APPLY TO AFFECTED AREAS ONCE A DAY AT NIGHT TIME EXTERNALLY 14 DAY(S) 02/10/2020 Active Comment on above: APPLY TO AFFECTED AR EAS ONCE A DAY AT NIGHT TIME EXTERNALLY 14 DAY(S) dextromethorphan hydrobromide 3 mg/ml / promethazine hydrochloride 1.25 mg/ml oral solution (6 sources) Phenothiazine, Uncompetitive Y-hkfras-U-aspartate Receptor Antagonist, Sigma-1 Agonist Start: take 3 mL by mouth four times daily as needed Promethazine-DM (PHENERGAN-DM) 6.25-15 mg/5 mL syrup Indications: Acute cough Take 3 mL by mouth four times a day as needed. 118 mL 07/23/2024 Active eczema cream (2 sources) Start: eczema cream Active TOPICAL September 14, 2020 12:00am [id number] 0.3 ml EPINEPHrine 1 mg/ml auto-injector (20 sources) alpha-Adrenergic Agonist, beta-Adrenergic Agonist, Catecholamine EPINEPHrine (EPIPEN) 0.3 mg/0.3 mL auto-injector Use as directed Active Comment on above: Use as directed fluconazole 150 mg oral tablet (1 source) Azole Antifungal Start: End: take 1 tablet by mouth once fluconazole (DIFLUCAN) 150 mg tablet Take 1 tablet by mouth one time only for 1 dose. 1 tablet 0 07/19/2021 07/19/2021 Active Comment on above: Take 1 tablet by [facility] one time only for 1 dose. fluticasone propionate 0.05 mg/actuat metered dose nasal spray (20 sources) Corticosteroid Start: take 1 spray(s) nasal route once daily fluticasone (FLONASE ALLERGY RELIEF) 50 mcg/actuation nasal spray Indications: Rhinosinusitis Use 1 [place] in each nostril once daily. 1 Each 5 07/12/2021 Active Comment on above: Use 1 [place] in each nostril once daily. Fkfcprjfnyr-Ruidtlcjc-D ilanter (1 source) Anticholinergic, Corticosteroid, beta2-Adrenergic Agonist Start: Fluticasone-Umeclidin -Vilanter (Trelegy Ellipta) 100-62.5-25 mcg blister with device Active 1 INH INHALATION DAILY October 03, 2022 12:00am 12 hr guaiFENesin 600 mg extended release oral tablet (20 sources) Start: take 1 tablet by mouth every twelve hours guaiFENesin (MUCINEX) 600 mg 12 hr tablet Indications: Acute cough Take 1-2 tablets by mouth twice daily. 30 tablet 01/18/2022 Active Comment on above: Take 1-2 tablets by mouth twice daily. ibuprofen 600 mg oral tablet (20 sources) Nonsteroidal Anti-inflammatory Drug Start: take 1 tablet by mouth every six hours as needed for pain ibuprofen (MOTRIN) 600 mg tablet Indications: Right foot pain Take 1 tablet by mouth every 6 hours as needed for pain. 90 tablet 1 11/30/2021 Active Start: 09-11-2021 take 1 tablet by fritz th every six hours as needed for pain ibuprofen (MOTRIN) 400 mg tablet Indications: Lateral epicondylitis of left elbow Take 1 tablet by mouth every 6 hours as needed for pain. 60 tablet 2 09/11/2021 Active Comment on above: Take 1 tablet by fritz th every 6 hours as needed for pain. losartan potassium 50 mg oral tablet (20 sources) Angiotensin 2 Receptor Vishnu Start: take 1 tablet by mouth once daily losartan (COZAAR) 50 mg tablet Indications: Benign essential hypertension TAKE 1 TABLET BY MOUTH EVERY DAY 30 tablet 5 05/24/2022 Active Start: 03-05-2018 End: 11-30-2021 take 50 mg by mouth once daily Losartan Active 50 MG P O DAILY March 05, 2018 1:00am Comment on above: TAKE 1 TABLET BY FRITZ TH EVERY DAY Take 1 tablet by fritz th once daily. MULTIVIT &MINERALS/FERROUS FUM (MULTI VITAMIN ORAL) (20 sources) take 1 tablet by mouth once daily MULTIVIT &MINERALS/FERROUS FUM (MULTI VITAMIN ORAL) Take 1 tablet by mouth once daily. Active take 1 tablet by mouth once yue y MULTIVIT &MINERALS/FERROUS FUM (MULTI VITAMIN ORAL) Take 1 tablet by mouth once daily. 0 Active Comment on above: Take 1 tablet by fritz th once daily. multivitamin,tx-iron- minerals tablet (2 sources) Start: 03-05-2018 take 1 tablet by mouth once daily multivitamin,tx-iron -minerals tablet Active 1 TABLET PO DAILY March 05, 2018 1:00am olopatadine 2 mg/ml ophthalmic solution (1 source) Histamine-1 Receptor Inhibitor Start: 11-13-2024 take 1 drop(s) into the eye(s) once daily Olopatadine (PATADAY ONCE DAILY RELIEF) 0.2 % drop Indications: Itchy eyes Use 1 drop in both eyes once daily. 5 mL 11/13/2024 Active predniSONE 20 mg oral tablet (18 sources) Start: 11-13-2024 End: 11-16-2024 take 1 tablet by mouth once daily predniSONE (DELTASONE) 20 mg tablet Indications: Swelling of left eyelid, unspecified eyelid Take 1 tablet by mouth once daily for 3 days. 3 tablet 11/13/2024 11/16/2024 Active Start: 07-23-2024 End: 08-01-2024 take 3 tablets by mouth once daily, then take 2 tablets by mouth once daily, then take 1 tablet by mouth once daily predniSONE (DELTASONE) 10 mg tablet Indications: Acute cough , Wheezing , SOB (shortness of breath) Take 3 tablets by mouth once daily for 3 days, THEN 2 tablets once daily for 3 days, THEN 1 tablet once daily for 3 days. 18 tablet 07/23/2024 08/01/2024 Active Start: 09-28-2023 End: 10-03-2023 take 2 tablets by mouth once daily predniSONE (DELTASONE) 20 mg tablet Indications: Acute cough Take 2 tablets by mouth once daily for 5 days. 10 tablet 0 09/28/2023 10/03/2023 Active Start: 01-18-2022 End: 01-23-2022 take 5 tablets by mouth once daily, then take 4 tablets by mouth once daily, then take 3 tablets by mouth once daily, then take 2 tablets by mouth once daily, then take 1 tablet by mouth once daily predniSONE (DELTASONE) 10 mg tablet Indications: SOB (shortness of breath) Take 5 tablets by mouth once daily for 1 day, THEN 4 tablets once daily for 1 day, THEN 3 tablets once daily for 1 day, THEN 2 tablets once daily for 1 day, THEN 1 tablet once daily for 1 day. 15 tablet 0 01/18/2022 01/23/2022 Active Start: 11-30-2021 End: 01-18-2022 take 2 tablets by mouth once daily predniSONE (DELTASONE) 20 mg tablet Indications: Right foot pain Take 2 tablets by mouth once daily. 10 tablet 0 11/30/2021 01/18/2022 Discontinued Start: 10-12-2021 take 2 tablets by mo uth once daily predniSONE (DELTASONE) 20 mg tablet Indications: Lateral epicondylitis of left elbow Take 2 tablets by mouth once daily. 10 tablet 0 10/12/2021 Active Start: 07-12-2021 End: 09-11-2021 take 2 tablets by mouth once daily predniSONE (DELTASONE) 20 mg tablet Indications: Rhinosinusitis , Mild intermittent asthma with acute exacerbation Take 2 tablets by mouth once daily. 10 tablet 0 07/12/2021 09/11/2021 Discontinued Comment on above: Take 2 tablets by mo uth once daily. Take 5 tablets by mo uth once daily for 1 day, THEN 4 tablets once daily for 1 day, THEN 3 tablets once daily for 1 day, THEN 2 tablets once daily for 1 day, THEN 1 tablet once daily for 1 day. tacrolimus 0.001 mg/mg topical ointment (20 sources) Calcineurin Inhibitor Immunosuppressant Start: 04-19-19 tacrolimus (PROTOPIC) 0.1 % ointment APPLY TOPICALLY TO AFFECTED AREA ONCE EVERY MORNING 04/19/2020 Active Comment on above: APPLY TOPICALLY TO A FFECTED AREA ONCE EVERY MORNING tobramycin 3 mg/ml ophthalmic solution (1 source) Aminoglycoside Antibacterial Start: 11-14-19 End: 11-21-19 take 1-2 drop(s) into the eye(s) four times daily tobramycin (TOBREX) 0.3 % ophthalmic solution Indications: Itchy eyes , Swelling of left eyelid, unspecified eyelid Use 1-2 drops in the left eye four times daily for 7 days. 5 mL 11/13/2024 11/20/2024 Active Vit B Comp and C-Vit E-FA-Selena-Zn 0.4 mg tab (6 sources) take 1 tablet by mouth once daily Vit B Comp and C-Vit E-FA-Selena-Zn 0.4 mg tab Take 1 tablet by mouth once daily. Active vortioxetine 10 mg oral tablet (20 sources) Start: 05-25-19 take 1 tablet by mouth once daily TRINTELLIX 10 mg tablet Indications: Depression, unspecified depression type TAKE 1 TABLET BY MOUTH EVERY DAY 30 tablet 5 05/24/2022 Active Start: 05-29-2021 End: 11-30-2021 take 1 tablet by mouth once daily vortioxetine (TRINTELLIX) 10 mg tablet Indications: Depression, unspecified depression type Take 1 tablet by mouth once daily. 90 tablet 1 11/30/2021 Active Start: 03-05-2018 take 1 tablet by fritz th once daily vortioxetine 5 mg tablet Active 5 MG PO DAILY March 05, 2018 1:00am Comment on above: TAKE 1 TABLET BY FRITZ TH EVERY DAY Take 1 tablet by fritz th once daily. Completed/Discontinued Medications Medication Drug Class(es) Dates Sig (Normalized) Sig (Original) brompheniramine maleate 0.4 mg/ml / dextromethorphan hydrobromide 2 mg/ml / pseudoephedrine hydrochloride 6 mg/ml oral solution (9 sources) alpha-Adrenergic Agonist, Uncompetitive A-vdwxsp-L-asparta te Receptor Antagonist, Sigma-1 Agonist Start: 01-18-2022 End: 04-15-2022 take 5 mL by mouth four times daily as needed Brompheniramine-Pse udoeph-DM (BROMFED DM) 2-30-10 mg/5 mL syrup Indications: Viral URI Take 5 mL by mouth four times daily as needed. 118 mL 0 01/18/2022 04/15/2022 Discontinued (Course of therapy completed) Comment on above: Take 5 mL by mouth f our times daily as needed. cyclobenzaprine hydrochloride 10 mg oral tablet (5 sources) Muscle Relaxant Start: 05-20-2020 End: 09-11-2021 take 1 tablet by mouth every eight hours as needed for pain cyclobenzaprine (FLEXERIL) 10 mg tablet Indications: Medication refill Take 1 tablet by mouth every 8 hours as needed for Muscle Spasm (or pain). 14 tablet 0 05/20/2020 09/11/2021 Discontinued Comment on above: Take 1 tablet by fritz every 8 hours as needed for Muscle Spasm (or pain). estradiol 0.1 mg/ml vaginal cream (4 sources) Estrogen Start: 10-02-2021 End: 10-03-2022 Estradiol Discontinued 0 VAGINAL .COMPLEX 42.5 October 02, 2021 10:20am October 03, 2022 10:59am small amount as directed vaginal twice a week; Start: 09-14-2020 End: 10-02-2021 Estradiol Discontinued 0 VAG INAL .COMPLEX 42.5 September 14, 2020 12:00am October 02, 2021 10:20am small amount as directed vaginal every other day X 4 weeks then twice a week; ferrous sulfate 325 mg oral tablet (2 sources) Start: 03-05-2018 End: 09-14-2019 take 325 mg by mouth once daily Ferrous Sulfate Discontinued 325 MG PO DAILY March 05, 2018 1:00am September 14, 2019 10:13am hydrOXYzine hydrochloride 25 mg oral tablet (5 sources) Antihistamine Start: 12-27-2020 End: 09-11-2021 take 1 tablet by mouth three times daily as needed for anxiety hydrOXYzine HCl (ATARAX) 25 mg tablet TAKE 1 TABLET BY MOUTH 3 TIMES A DAY NEEDED FOR ANXIETY 270 tablet 1 12/27/2020 09/11/2021 Discontinued Comment on above: TAKE 1 TABLET BY FRITZ 3 TIMES A DAY NEEDED FOR ANXIETY 0.83 ml risankizumab-rzaa 90.4 mg/ml prefilled syringe (2 sources) Start: 09-14-2019 End: 09-14-2020 Risankizumab-Rzaa (Skyrizi) 75 mg/0.83 mL syringe Discontinued 0 SC per package directions September 14, 2019 12:00am September 14, 2020 12:50pm subcut PER PKG DIR venlafaxine 37.5 mg oral tablet (2 sources) Serotonin and Norepinephrine Reuptake Inhibitor Start: 03-05-2018 End: 09-14-2019 take 37.5 mg by mouth twice daily Venlafaxine Discontinued 37.5 MG PO TWICE A DAY March 05, 2018 1:00am September 14, 2019 10:13am vitamin b12 0.1 mg oral tablet (20 sources) Vitamin B12 End: 04-15-2022 take 1 tablet by mouth once daily cyanocobalamin (VITAMIN B-12) 100 mcg tab Take 100 mcg by mouth once daily. 0 04/15/2022 Discontinued (Other) Comment on above: Take 100 mcg by mout h once daily. Problems Active Problems Problem Classification Problem Date Documented Date Episodic/Chronic Asthma (20 sources) Mild intermittent asthma; Translations: [Mild intermittent asthma with (acute) exacerbation] Onset: 07-12-2021 Chronic Essential hypertension (20 sources) Benign essential hypertension; Translations: [Essential (primary) hypertension] 01-11-2016 Chronic Immunizations and screening for infectious disease (1 source) Requires varicella vaccination; Translations: [Encounter for immunization] Episodic Malaise and fatigue (1 source) Fatigue; Translations: [Other fatigue] Episodic Menopausal disorders (5 sources) Atrophic vaginitis; Translations: [Postmenopausal atrophic vaginitis] Chronic Mood disorders (20 sources) Depressive disorder; Translations: [Depression] 06-21-2012 Chronic Other circulatory disease (1 source) Elevated blood-pressure reading, without diagnosis of hypertension; Translations: [Elevated blood pressure reading without diagnosis of hypertension] Onset: 09-27-2024 Episodic Other connective tissue disease (2 sources) Lateral epicondylitis of left humerus; Translations: [Lateral epicondylitis, left elbow] Episodic Other connective tissue disease (3 sources) Pain in right foot; Translations: [Pain in right foot] Episodic Other connective tissue disease (2 sources) Plantar fasciitis; Translations: [Plantar fascial fibromatosis] Episodic Other connective tissue disease (1 source) Muscle pain; Translations: [Myalgia, unspecified site] 09-28-2023 Episodic Other connective tissue disease (1 source) Abnormal posture; Translations: [Posture abnormality] Onset: 07-10-2024 Episodic Other eye disorders (1 source) Itching of eye; Translations: [Unspecified disorder of eye and adnexa] 11-13-2024 Episodic Other eye disorders (1 source) Swelling of eyelid; Translations: [Edema of left eye, unspecified eyelid] 11-13-2024 Episodic Other eye disorders (1 source) Unspecified disorder of eye and adnexa; Translations: [Itchy eyes] Onset: 11-13-2024 Episodic Other eye disorders (1 source) Edema of left eye, unspecified eyelid; Translations: [Swelling of left eyelid, unspecified eyelid] Onset: 11-13-2024 Episodic Other inflammatory condition of skin (20 sources) Psoriasis; Translations: [Psoriasis, unspecified] 08-31-2019 Chronic Other lower respiratory disease (3 sources) Cough; Translations: [Cough] Episodic Other lower respiratory disease (2 sources) Dyspnea; Translations: [Shortness of breath] Episodic Other lower respiratory disease (1 source) Cough; Translations: [Acute cough] 07-23-2024 Episodic Other lower respiratory disease (1 source) Wheezing; Translations: [Wheezing] 07-23-2024 Episodic Other nervous system disorders (2 sources) Difficulty walking; Translations: [Difficulty in walking, not elsewhere classified] Chronic Other screening for suspected conditions (not mental disorders or infectious disease) (4 sources) Patient encounter status; Translations: [Encounter for screening mammogram for malignant neoplasm of breast] Onset: 11-18-2024 Episodic Other upper respiratory disease (2 sources) Chronic rhinitis; Translations: [Unspecified sinusitis (chronic)] Chronic Other upper respiratory disease (2 sources) Nasal congestion; Translations: [Nasal congestion] Episodic Other upper respiratory disease (1 source) Nasal sinus problem; Translations: [Other specified disorders of nose and nasal sinuses] Episodic Other upper respiratory disease (1 source) Acute bronchospasm; Translations: [Bronchospasm] Onset: 09-27-2024 Episodic Other upper respiratory infections (1 source) Bacterial sinusitis; Translations: [Chronic sinusitis, unspecified] Chronic Other upper respiratory infections (4 sources) Acute maxillary sinusitis; Translations: [Acute maxillary sinusitis, unspecified] Onset: 09-27-2024 Episodic Otitis media and related conditions (1 source) Acute transudative otitis media; Translations: [Other acute nonsuppurative otitis media, right ear] Episodic Unclassified (1 source) Physical Therapy Onset: 08-03-2024 Unclassified (1 source) Acute cough; Translations: [Acute cough] Onset: 05-01-2025 Past or Other Problems Problem Classification Problem Date Documented Da te Episodic/Chronic Allergic reactions (20 sources) Allergic reaction; Translations: [Allergy, unspecified, initial encounter] Onset: 11-26-2012 11-26-2012 Episodic Conditions associated with dizziness or vertigo (20 sources) Dizziness; Translations: [Dizziness and giddiness] Onset: 07-02-2024 07-02-2024 Episodic Lymphadenitis (8 sources) Localized enlarged lymph nodes; Translations: [Cervical lymphadenopathy] Onset: 05-02-2018 01-06-2022 Episodic Other connective tissue disease (13 sources) Abnormal posture; Translations: [Abnormal posture] Onset: 07-10-2024 07-10-2024 Episodic Other lower respiratory disease (1 source) Wheezing; Translations: [Wheezing] Onset: 07-23-2024 Episodic Other lower respiratory disease (1 source) Shortness of breath; Translations: [SOB (shortness of breath)] Onset: 07-23-2024 Episodic Sprains and strains (20 sources) Sprain of foot; Translations: [Unspecified sprain of unspecified foot, initial encounter] Onset: 05-15-2020 05-15-2020 Episodic Results Test Name Value Interpretation Reference Range Gatito ZUÑIGAOVvalarie 11-13-2024 CNOV Office Visit ([facility]ALK[facility] ) DEBORAH LUGO ([id number]) 1965 F Date Time Provider Department 11/13/24 10:45 AM ESSIE GEE During your visit today, we recorded the following information about you: Pulse Respiration Blood pressure Weight 72/minute 16/minute 152/79 98.2 kg Essie Gee APRN.CNP 11/13/2024 11:06 AM Signed PATIENT NAME: Deborah Lugo DATE OF : 1965 TODAYS' DATE: 11/13/2024 Recording using [employer] software for draft documentation of the visit was discussed with the patient/authorized outside sales representative insurance; all questions welcomed and answered. Patient/authorized outside sales representative insurance agreed to proceed Subjective: The patient is a 59-year-old female with a history of allergies, presenting with left eye swelling and itching. History of Present Illness: Left Eye Swelling and Itching: - Onset of symptoms a few days ago. - Noted significant swelling this morning, which has since decreased. - Clear discharge from the eye; denies thick, goopy discharge or crusting. - Denies photophobia, headaches, or dizziness. - Denies recent contact with individuals with conjunctivitis. - Using Opcon-A eye drops; has not used Pataday recently. - Takes Zyrtec daily and receives allergy shots, with the next dose due on Saturday. - Unable to wear contact lenses due to chronic dry eyes from allergies. Review of Systems: Eyes: (+) itchy eyes, (+) left periorbital swelling, (+) watery ocular discharge, (+) dry eyes, (-) crusting, (-) thick purulent ocular discharge, (-) photophobia, (-) pain with eye movement Ears/Nose/Mouth/Throa t: (+) nasal congestion Neurological: (-) headache, (-) dizziness Allergies: Allergies: Kiara Inhibitors Other: See Comments Comment: Facial swelling Adhesive Unknown Adhesive Tape (Imani* Rash Latex Unknown Lisinopril Unknown Seasonal Allergies Intolerance Sulfa (Sulfonamide * Hives Past Medical History: PAST MEDICAL HISTORY Diagnosis Date Acute sinusitis - Resolved Allergic rhinitis Benign essential hypertension Breast lump - Lt. '98; R '05 Cobalamin deficiency Depression Hyperlipidemia Psoriatic arthritis (HCC) Seasonal allergies Transfusion history PPH with first delivery Urticaria Past Surgical History: PAST SURGICAL HISTORY Procedure Laterality Date BREAST BIOPSY R benign LAPAROSCOPY DIAGNOSTIC with PAMELA AND TL PAST SURGICAL HISTORY OF Left Sebaceous cyst surgery - L breast PAST SURGICAL HISTORY OF 1997 Tubal ligation PAST SURGICAL HISTORY OF Laparotomy, exploration- pelvic cyst and adhesions; Dr. Rahman SKIN LESION BIOPSY left chest wall lipoma Family History: FAMILY HISTORY Problem Relation Age of Onset other (HTN) Mother other (DM2) Mother other (M I) Mother 50 Cancer Father leukemia other (HTN) Father other (DM2) Father other (MDS) Father Ovarian cancer Paternal Grandmother other (Diabetes mellitus) Other colon/prostate CA other (Heart disease) Other Hypertension Other other (M I) Paternal Grandfather Tobacco History: Tobacco Use: Quit 10/09/1992. Types: Cigarettes Medications: Current Outpatient Medications Medication Sig Dispense Refill Olopatadine (PATADAY ONCE DAILY RELIEF) 0.2 % drop Use 1 drop in both eyes once daily. 5 mL 0 predniSONE (DELTASONE) 20 mg tablet Take 1 tablet by mouth once daily for 3 days. 3 tablet 0 tobramycin (TOBREX) 0.3 % ophthalmic solution Use 1-2 drops in the left eye four times daily for 7 days. 5 mL 0 ipratropium-albuterol (DUONEB) 0.5 mg-3 mg(2.5 mg base)/3 mL nebu Inhale 3 mL as instructed every 4 hours as needed for wheezing/shortness of breath. 30 each 0 albuterol HFA (PROVENTIL HFA, VENTOLIN HFA) 90 mcg/actuation inhaler Inhale 2 puffs as instructed every 4 hours as needed for wheezing/shortness of breath. 18 g 0 azelastine 0.1% nasal spray Use 2 sprays in each nostril once daily. cetirizine (ZYRTEC) 10 mg tablet Take 1 tablet by mouth once daily. Vit B Comp and C-Vit E-FA-Selena-Zn 0.4 mg tab Take 1 tablet by mouth once daily. Promethazine-DM (PHENERGAN-DM) 6.25-15 mg/5 mL syrup Take 3 mL by mouth four times a day as needed. 118 mL 0 benzonatate (TESSALON PERLES) 100 mg capsule Take 1-2 capsules by mouth three times a day as needed for cough. 42 capsule 0 TRINTELLIX 10 mg tablet TAKE 1 TABLET BY MOUTH EVERY DAY 30 tablet 5 losartan (COZAAR) 50 mg tablet TAKE 1 TABLET BY MOUTH EVERY DAY 30 tablet 5 albuterol (PROVENTIL) 5 mg/mL nebu INHALE 0.5 ML INSTRUCTED EVERY 6 HOURS NEEDED FOR WHEEZING/SHORTNESS OF BREATH. 20 mL 0 guaiFENesin (MUCINEX) 600 mg 12 hr tablet Take 1-2 tablets by mouth twice daily. 30 tablet 0 ibuprofen (MOTRIN) 600 mg tablet Take 1 tablet by mouth every 6 hours as needed for pain. 90 tablet 1 fluticasone (FLONASE ALLERGY RELIEF) 50 mcg/actuation nasal spray Use 1 [place] in each nostril once daily. 1 Each 5 tacro (more content not included)... Normal [facility] HEALTHon 09-27-2024 ALLIED HEALTH HNO ID: [id number] Author: JAYDON HOLCOMB RT(R) Service: Radiology Author Type: Technologist Type: Allied Health Filed: 09/27/2024 08:37 Note Text: Radiology Service Progress Note PATIENT NAME: Deborah Lugo DATE OF SERVICE: September 27, 2024 TIME: 8:37 AM PATIENT IDENTITY VERIFICATION COMPLETED USING TWO (2) IDENTIFIERS: Name and Date of confirmed by patient verbally. FALL SCREENING: Has the patient had 2 falls in the last year or 1 fall with injury or currently using an Ambulatory Assistive Device (Walker, Cane, Wheelchair, Crutches, etc.)? Emergency Room Patient: Screened in ED PATIENT GENDER DATA: Assigned female at . status: : No status: NO. PATIENT RELEVANT IMPLANT DATA REVIEWED: Not Applicable PATIENT PRESENTS WITH AN IMPLANTABLE OR ATTACHED PERL DEVELOPER: No RADIOLOGY DEPARTMENT: General X-ray: Exam(s) Completed: Chest X-Ray PERIPHERAL IV DATA: Not applicable SIGNED BY: RT Manolo(R) September 27, 2024 8:37 AM Normal [facility] ED NOTEon 09-27-2024 ED NOTE HNO ID: [id number] Author: EDY BUCK RN Service: ? Author Type: Registered Nurse Type: ED Notes Filed: 09/27/2024 07:56 Note Text: Patient informed: the name of medication, why we are giving it, possible side effects, what they may expect to feel, and was offered a chance to ask questions, prior to the administration of Prednisone [facility] ED NOTE HNO ID: [id number] Author: EDY BUCK RN Service: ? Author Type: Registered Nurse Type: ED Notes Filed: 09/27/2024 07:44 Note Text: Pt arrives with c/o I am having a hard time breathing, and I am wheezing. Pt reports cough began Saturday, worsening over the last several days. Pt reports concern for pneumonia. [facility] ED PROV NOTEon 09-27-2024 ED PROV NOTE HNO ID: [id number] Author: TERESITA MATUTE MD Service: Emergency Medicine Author Type: Physician Type: ED Provider Notes Filed: 09/27/2024 09:04 Note Text: ED Provider Note Patient Name: Deborah Lugo : 1965 SERVICE DATE: 09/27/24 History Patient presents with: Shortness of Breath Cough HPI 59-year-old female with history as below, pertinent history of allergic rhinitis, allergies, mild intermittent asthma presenting with concerns for cough and shortness of breath, wheezing. History is provided by patient. Onset of symptoms 5 days ago. She says she has congestion postnasal drip, rhinorrhea that is clear. History is cough. States that she is wheezing. Has been using her albuterol inhaler intermittently without relief. States that she does have a steroid inhaler that she used last 2 days but did not get any relief. Does not use this daily. Was worried about possible pneumonia given she feels that she is still wheezing prompting ED assessment today. No fevers or chills peer denies chest pain. No abdominal pain nausea vomiting or diarrhea. PAST MEDICAL HISTORY Diagnosis Date Acute sinusitis - Resolved Allergic rhinitis Benign essential hypertension Breast lump - Lt. '98; R '05 Cobalamin deficiency Depression Hyperlipidemia Psoriatic arthritis (HCC) Seasonal allergies Transfusion history PPH with first delivery Urticaria PAST SURGICAL HISTORY Procedure Laterality Date BREAST BIOPSY R benign LAPAROSCOPY DIAGNOSTIC with PAMELA AND TL PAST SURGICAL HISTORY OF Left Sebaceous cyst surgery - L breast PAST SURGICAL HISTORY OF 1998 Tubal ligation PAST SURGICAL HISTORY OF Laparotomy, exploration- pelvic cyst and adhesions; Dr. Rahman SKIN LESION BIOPSY left chest wall lipoma FAMILY HISTORY Problem Relation Age of Onset other (HTN) Mother other (DM2) Mother other (M I) Mother 50 Cancer Father leukemia other (HTN) Father other (DM2) Father other (MDS) Father Ovarian cancer Paternal Grandmother other (Diabetes mellitus) Other colon/prostate CA other (Heart disease) Other Hypertension Other other (M I) Paternal Grandfather Social History Tobacco Use Smoking status: Former Current packs/day: 0.00 Types: Cigarettes Quit date: 10/09/1992 Years since quittin.9 Smokeless tobacco: Never Vaping Use Vaping status: Never Used Substance and Sexual Activity Alcohol use: Yes Comment: social Drug use: No Sexual activity: Not on file ALLERGIES Allergen Reactions Kiara Inhibitors Other: See Comments Facial swelling Adhesive Unknown Adhesive Tape (Imani* Rash Latex Unknown Lisinopril Unknown Seasonal Allergies Intolerance Sulfa (Sulfonamide * Hives Review of Systems Per HPI Physical Exam Vitals [09/27/24 0740] BP Pulse Temp Temp src Resp SpO2 Weight Height 184/81 (!) 94 36.4 ?C (97.5 ?F) -- 19 97 % 95.3 kg (210 lb) 1.575 m (5' 2) Physical Exam Patient is overall non-toxic and in no obvious distress. Hemodynamically stable and afebrile Clear congestion and boggy turbinates manage bilaterally Oropharynx clear Heart RRR w/o murmurs; Distal pulses intact Lungs: Expiratory wheezing noted to bases bilaterally. No increased work of breathing or excess muscle usage. Pulse oximetry maintained on room air patient is easy unlabored speech. Abd soft, NT, ND Patient moves all 4 extremities spontaneously and without deficit No pitting edema, no asymmetric calf pain or swelling Diagnostic Testing ED Labs Ordered and Reviewed COVID AND INFLUENZA A/B AND RSV PCR, EXPEDITED - Normal Narrative: Reference Range (the expected result in uninfected individuals): Not detected Procedures ED Course / Clinical Impression Clinical Impressions as of 09/27/24 0903 Upper respiratory tract infection, unspecified type Bronchospasm Elevated blood pressure reading without diagnosis of hypertension MDM / Disposition / Plan MDM Patient is a 59-year-old female with history as above presenting with complaints of cough, congestion. History and exam as above. Medical record reviewed. Additional encounters reviewed: last visit from 07/23/24 HPI obtained from patient, medical record, family member who arrives bedside Triage Vitals reviewed: Triage vital stable blood pressure slightly elevated at 184/81 heart rate of 94. Pulse oximetry 97% on room air, respiratory rate of 19 breaths/min. Patient has no documented history of hypertension reviewed elevated blood pressure. She denies any chest pain no headache, no neurodeficit. Recommended monitoring outpatient follow-up with primary care for this. DDx considered : Patient arrives with 5 days of cough, congestion. Concern at this time for asthma exacerbation, likely reactive in setting of viral URI versus possible seasonal allergies. Considered possible pneumonia but she is not having productive cough, no fevers no hypoxia Cystosol t (more content not included)... Normal [facility] XR CHEST 2V FRONTAL/LATon XR CHEST 2V FRONTAL/LAT * * *Final Report* * * DATE OF EXAM: Sep 27 2024 8:37AM LDX 5291 - XR CHEST 2V FRONTAL/LAT / PROCEDURE REASON: Cough * * * * Physician Interpretation * * * * EXAMINATION: CHEST RADIOGRAPH (2 VIEW FRONTAL and LATERAL) CLINICAL HISTORY: Cough MQ: [id number] EXAM DATE/TIME: 09/27/2024 8:37 AM COMPARISON: 02/07/2023: RESULT: Lines, tubes, and devices: None. Lungs and pleura: No consolidation. No lung mass. No pleural effusion. No pneumothorax. Cardiomediastinal silhouette: Normal cardiomediastinal silhouette. Bones and soft tissues: Unremarkable. IMPRESSION: No acute radiographic abnormality. 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 Transcribe Date/Time: Sep 27 2024 8:43A Dictated by : NASRA GALAN MD This examination was interpreted and the report reviewed and electronically signed by: NASRA GALAN MD on Sep 27 2024 8:44AM EST [id number] [facility] CNTHERAPYon 08-26-2024 CNTHERAPY OT/PT/Speech Visit (LDPT) DEBORAH LUGO ([id number]) 1965 F Date Time Provider Department 08/26/24 1:30 PM SARITHA JARAMILLO LDPT Date Time Provider Department Center 08/26/2024 1:30 PM [id number], CHRISTI LDPT [facility] Reason for Visit: PT Progress Note [5776] PT Discharge [752] Primary Visit Diagnosis:Posture abnormality [R29.3] Other Visit Diagnoses:Dizziness [R42] Benign paroxysmal positional vertigo of right ear [H81.11] Allergies As of Date: 08/26/2024 Noted Allergy Reaction IKARA INHIBITORS 11/07/2015 14 - Other: See Comments Comments: Facial swelling ADHESIVE 11/07/2015 16 - Unknown ADHESIVE TAPE (ROSINS) 11/06/2012 2 - Rash LATEX 11/07/2015 16 - Unknown LISINOPRIL 11/07/2015 16 - Unknown SEASONAL ALLERGIES 07/20/2010 5 - Intolerance SULFA (SULFONAMIDE ANTIBIOTICS) 07/20/2010 4 - Hives Date Reviewed: 07/23/2024 Reviewed by: Angelic Dubose MA - Fully Assessed Prescriptions as of 08/26/2024 - azelastine 0.1% nasal spray Use 2 sprays in each nostril once daily. - cetirizine (ZYRTEC) 10 mg tablet Take 1 tablet by mouth once daily. - Vit B Comp and C-Vit E-FA-Selena-Zn 0.4 mg tab Take 1 tablet by mouth once daily. - Promethazine-DM (PHENERGAN-DM) 6.25-15 mg/5 mL syrup Take 3 mL by mouth four times a day as needed. - benzonatate (TESSALON PERLES) 100 mg capsule Take 1-2 capsules by mouth three times a day as needed for cough. - TRINTELLIX 10 mg tablet TAKE 1 TABLET BY MOUTH EVERY DAY - losartan (COZAAR) 50 mg tablet TAKE 1 TABLET BY MOUTH EVERY DAY - albuterol (PROVENTIL) 5 mg/mL nebu INHALE 0.5 ML INSTRUCTED EVERY 6 HOURS NEEDED FOR WHEEZING/SHORTNESS OF BREATH. - guaiFENesin (MUCINEX) 600 mg 12 hr tablet Take 1-2 tablets by mouth twice daily. - ibuprofen (MOTRIN) 600 mg tablet Take 1 tablet by mouth every 6 hours as needed for pain. - fluticasone (FLONASE ALLERGY RELIEF) 50 mcg/actuation nasal spray Use 1 [place] in each nostril once daily. - tacrolimus (PROTOPIC) 0.1 % ointment APPLY TOPICALLY TO AFFECTED AREA ONCE EVERY MORNING - clobetasol (TEMOVATE) 0.05 % ointment APPLY TO AFFECTED AREAS ONCE A DAY AT NIGHT TIME EXTERNALLY 14 DAY(S) - albuterol HFA (PROAIR HFA) 90 mcg/actuation inhaler Inhale 2 Puffs as instructed every 4 hours as needed for Wheezing/Shortness of Breath. - Blood Pressure Monitor 1 Each as directed. - albuterol (PROVENTIL) 2.5 mg /3 mL (0.083 %) nebulizer solution Use 3 mL via nebulizer every 6 hours as needed for Wheezing/Shortness of Breath. - EPINEPHrine (EPIPEN) 0.3 mg/0.3 mL auto-injector Use as directed - MULTIVIT ANDMINERALS/FERROUS FUM (MULTI VITAMIN ORAL) Take 1 tablet by mouth once daily. - cholecalciferol (VITAMIN D3) 1,000 unit tab tablet Take 1,000 Units by mouth once daily. [facility] CNTHERAPYon 08-19-2024 CNTHERAPY OT/PT/Speech Visit (LDPT) DEBORAH LUGO ([id number]) 1965 F Date Time Provider Department 08/19/24 1:30 PM JEAN MARIE PLASENCIA Date Time Provider Department Center 08/19/2024 1:30 PM [id number] MARIE PLASENCIAHAWA [facility] Reason for Visit: Physical Therapy [503] Primary Visit Diagnosis:Posture abnormality [R29.3] Other Visit Diagnoses:Dizziness [R42] Benign paroxysmal positional vertigo of right ear [H81.11] Allergies As of Date: 08/19/2024 Noted Allergy Reaction KIARA INHIBITORS 11/07/2015 14 - Other: See Comments Comments: Facial swelling ADHESIVE 11/07/2015 16 - Unknown ADHESIVE TAPE (ROSINS) 11/06/2012 2 - Rash LATEX 11/07/2015 16 - Unknown LISINOPRIL 11/07/2015 16 - Unknown SEASONAL ALLERGIES 07/20/2010 5 - Intolerance SULFA (SULFONAMIDE ANTIBIOTICS) 07/20/2010 4 - Hives Date Reviewed: 07/23/2024 Reviewed by: Angelic Dubose MA - Fully Assessed Prescriptions as of 08/19/2024 - azelastine 0.1% nasal spray Use 2 sprays in each nostril once daily. - cetirizine (ZYRTEC) 10 mg tablet Take 1 tablet by mouth once daily. - Vit B Comp and C-Vit E-FA-Selena-Zn 0.4 mg tab Take 1 tablet by mouth once daily. - Promethazine-DM (PHENERGAN-DM) 6.25-15 mg/5 mL syrup Take 3 mL by mouth four times a day as needed. - benzonatate (TESSALON PERLES) 100 mg capsule Take 1-2 capsules by mouth three times a day as needed for cough. - TRINTELLIX 10 mg tablet TAKE 1 TABLET BY MOUTH EVERY DAY - losartan (COZAAR) 50 mg tablet TAKE 1 TABLET BY MOUTH EVERY DAY - albuterol (PROVENTIL) 5 mg/mL nebu INHALE 0.5 ML INSTRUCTED EVERY 6 HOURS NEEDED FOR WHEEZING/SHORTNESS OF BREATH. - guaiFENesin (MUCINEX) 600 mg 12 hr tablet Take 1-2 tablets by mouth twice daily. - ibuprofen (MOTRIN) 600 mg tablet Take 1 tablet by mouth every 6 hours as needed for pain. - fluticasone (FLONASE ALLERGY RELIEF) 50 mcg/actuation nasal spray Use 1 [place] in each nostril once daily. - tacrolimus (PROTOPIC) 0.1 % ointment APPLY TOPICALLY TO AFFECTED AREA ONCE EVERY MORNING - clobetasol (TEMOVATE) 0.05 % ointment APPLY TO AFFECTED AREAS ONCE A DAY AT NIGHT TIME EXTERNALLY 14 DAY(S) - albuterol HFA (PROAIR HFA) 90 mcg/actuation inhaler Inhale 2 Puffs as instructed every 4 hours as needed for Wheezing/Shortness of Breath. - Blood Pressure Monitor 1 Each as directed. - albuterol (PROVENTIL) 2.5 mg /3 mL (0.083 %) nebulizer solution Use 3 mL via nebulizer every 6 hours as needed for Wheezing/Shortness of Breath. - EPINEPHrine (EPIPEN) 0.3 mg/0.3 mL auto-injector Use as directed - MULTIVIT ANDMINERALS/FERROUS FUM (MULTI VITAMIN ORAL) Take 1 tablet by mouth once daily. - cholecalciferol (VITAMIN D3) 1,000 unit tab tablet Take 1,000 Units by mouth once daily. [facility] CNTHERAPYon 08-12-2024 CNTHERAPY OT/PT/Speech Visit (LDPT) DEBORAH LUGO ([id number]) 1965 F Date Time Provider Department 08/12/24 2:15 PM SARITHA JARAMILLO Date Time Provider Department Center 08/12/2024 2:15 PM [id number] JARAMILLO [facility] Reason for Visit: Physical Therapy [503] Primary Visit Diagnosis:Posture abnormality [R29.3] Other Visit Diagnoses:Dizziness [R42] Benign paroxysmal positional vertigo of right ear [H81.11] Allergies As of Date: 08/12/2024 Noted Allergy Reaction KIARA INHIBITORS 11/07/2015 14 - Other: See Comments Comments: Facial swelling ADHESIVE 11/07/2015 16 - Unknown ADHESIVE TAPE (ROSINS) 11/06/2012 2 - Rash LATEX 11/07/2015 16 - Unknown LISINOPRIL 11/07/2015 16 - Unknown SEASONAL ALLERGIES 07/20/2010 5 - Intolerance SULFA (SULFONAMIDE ANTIBIOTICS) 07/20/2010 4 - Hives Date Reviewed: 07/23/2024 Reviewed by: Angelic Dubose MA - Fully Assessed Prescriptions as of 08/12/2024 - azelastine 0.1% nasal spray Use 2 sprays in each nostril once daily. - cetirizine (ZYRTEC) 10 mg tablet Take 1 tablet by mouth once daily. - Vit B Comp and C-Vit E-FA-Selena-Zn 0.4 mg tab Take 1 tablet by mouth once daily. - Promethazine-DM (PHENERGAN-DM) 6.25-15 mg/5 mL syrup Take 3 mL by mouth four times a day as needed. - benzonatate (TESSALON PERLES) 100 mg capsule Take 1-2 capsules by mouth three times a day as needed for cough. - TRINTELLIX 10 mg tablet TAKE 1 TABLET BY MOUTH EVERY DAY - losartan (COZAAR) 50 mg tablet TAKE 1 TABLET BY MOUTH EVERY DAY - albuterol (PROVENTIL) 5 mg/mL nebu INHALE 0.5 ML INSTRUCTED EVERY 6 HOURS NEEDED FOR WHEEZING/SHORTNESS OF BREATH. - guaiFENesin (MUCINEX) 600 mg 12 hr tablet Take 1-2 tablets by mouth twice daily. - ibuprofen (MOTRIN) 600 mg tablet Take 1 tablet by mouth every 6 hours as needed for pain. - fluticasone (FLONASE ALLERGY RELIEF) 50 mcg/actuation nasal spray Use 1 [place] in each nostril once daily. - tacrolimus (PROTOPIC) 0.1 % ointment APPLY TOPICALLY TO AFFECTED AREA ONCE EVERY MORNING - clobetasol (TEMOVATE) 0.05 % ointment APPLY TO AFFECTED AREAS ONCE A DAY AT NIGHT TIME EXTERNALLY 14 DAY(S) - albuterol HFA (PROAIR HFA) 90 mcg/actuation inhaler Inhale 2 Puffs as instructed every 4 hours as needed for Wheezing/Shortness of Breath. - Blood Pressure Monitor 1 Each as directed. - albuterol (PROVENTIL) 2.5 mg /3 mL (0.083 %) nebulizer solution Use 3 mL via nebulizer every 6 hours as needed for Wheezing/Shortness of Breath. - EPINEPHrine (EPIPEN) 0.3 mg/0.3 mL auto-injector Use as directed - MULTIVIT ANDMINERALS/FERROUS FUM (MULTI VITAMIN ORAL) Take 1 tablet by mouth once daily. - cholecalciferol (VITAMIN D3) 1,000 unit tab tablet Take 1,000 Units by mouth once daily. [facility] CNTHERAPYon 08-03-2024 CNTHERAPY OT/PT/Speech Visit (LDPT) DEBORAH LUGO ([id number]) 1965 F Date Time Provider Department 08/03/24 3:00 PM PETER GEE Date Time Provider Department Center 08/03/2024 3:00 PM [id number] GEE [facility] Reason for Visit: Physical Therapy [503] Primary Visit Diagnosis:Posture abnormality [R29.3] Allergies As of Date: 08/03/2024 Noted Allergy Reaction KIARA INHIBITORS 11/07/2015 14 - Other: See Comments Comments: Facial swelling ADHESIVE 11/07/2015 16 - Unknown ADHESIVE TAPE (ROSINS) 11/06/2012 2 - Rash LATEX 11/07/2015 16 - Unknown LISINOPRIL 11/07/2015 16 - Unknown SEASONAL ALLERGIES 07/20/2010 5 - Intolerance SULFA (SULFONAMIDE ANTIBIOTICS) 07/20/2010 4 - Hives Date Reviewed: 07/23/2024 Reviewed by: Angelic Dubose MA - Fully Assessed Prescriptions as of 08/03/2024 - azelastine 0.1% nasal spray Use 2 sprays in each nostril once daily. - cetirizine (ZYRTEC) 10 mg tablet Take 1 tablet by mouth once daily. - Vit B Comp and C-Vit E-FA-Selena-Zn 0.4 mg tab Take 1 tablet by mouth once daily. - Promethazine-DM (PHENERGAN-DM) 6.25-15 mg/5 mL syrup Take 3 mL by mouth four times a day as needed. - benzonatate (TESSALON PERLES) 100 mg capsule Take 1-2 capsules by mouth three times a day as needed for cough. - TRINTELLIX 10 mg tablet TAKE 1 TABLET BY MOUTH EVERY DAY - losartan (COZAAR) 50 mg tablet TAKE 1 TABLET BY MOUTH EVERY DAY - albuterol (PROVENTIL) 5 mg/mL nebu INHALE 0.5 ML INSTRUCTED EVERY 6 HOURS NEEDED FOR WHEEZING/SHORTNESS OF BREATH. - guaiFENesin (MUCINEX) 600 mg 12 hr tablet Take 1-2 tablets by mouth twice daily. - ibuprofen (MOTRIN) 600 mg tablet Take 1 tablet by mouth every 6 hours as needed for pain. - fluticasone (FLONASE ALLERGY RELIEF) 50 mcg/actuation nasal spray Use 1 [place] in each nostril once daily. - tacrolimus (PROTOPIC) 0.1 % ointment APPLY TOPICALLY TO AFFECTED AREA ONCE EVERY MORNING - clobetasol (TEMOVATE) 0.05 % ointment APPLY TO AFFECTED AREAS ONCE A DAY AT NIGHT TIME EXTERNALLY 14 DAY(S) - albuterol HFA (PROAIR HFA) 90 mcg/actuation inhaler Inhale 2 Puffs as instructed every 4 hours as needed for Wheezing/Shortness of Breath. - Blood Pressure Monitor 1 Each as directed. - albuterol (PROVENTIL) 2.5 mg /3 mL (0.083 %) nebulizer solution Use 3 mL via nebulizer every 6 hours as needed for Wheezing/Shortness of Breath. - EPINEPHrine (EPIPEN) 0.3 mg/0.3 mL auto-injector Use as directed - MULTIVIT ANDMINERALS/FERROUS FUM (MULTI VITAMIN ORAL) Take 1 tablet by mouth once daily. - cholecalciferol (VITAMIN D3) 1,000 unit tab tablet Take 1,000 Units by mouth once daily. Relocation Director: Therapy (PT/OT/Speech/Resp) ID: [id number] 08/03/2024 3:44 PM Author: PETER GEE Signed by PETER GEE PTA on 08/03/2024 at 3:44 PM Document text: Program_ID:[id number] Access Code: [email or web address] URL: [email or web address]/ Date: 08-03-2024 Prepared By: Saritha Jaramillo Program Notes Exercises - Supine Chin Tuck - 1 x daily - 5 x weekly - 2 sets - 10 reps - Supine Thoracic Mobilization Towel Roll Vertical with Arm Stretch - 1 x daily - 5 x weekly - 2 sets - 10 reps - Shoulder Extension with Resistance - Palms Forward - 1-2 x daily - 5 x weekly - 2-3 sets - 10 reps - Supine Shoulder External Rotation with Resistance - 1-2 x daily - 5 x weekly - 2-3 sets - 10 reps ----- Normal [facility] THERAPY NTon 08-03-2024 THERAPY NT HNO ID: [id number] Author: PETER GEE PTA Service: ? Author Type: Network Operations Center Technician Type: Therapy (PT/OT/Speech/Resp) Filed: 08/03/2024 15:44 Note Text: Program_ID:[id number] Access Code: [email or web address] URL: [email or web address] [email or web address]/ Date: 08-03-2024 Prepared By: Saritha Jaramillo Program Notes Exercises - Supine Chin Tuck - 1 x daily - 5 x weekly - 2 sets - 10 reps - Supine Thoracic Mobilization Towel Roll Vertical with Arm Stretch - 1 x daily - 5 x weekly - 2 sets - 10 reps - Shoulder Extension with Resistance - Palms Forward - 1-2 x daily - 5 x weekly - 2-3 sets - 10 reps - Supine Shoulder External Rotation with Resistance - 1-2 x daily - 5 x weekly - 2-3 sets - 10 reps Normal [facility] 36on 07-27-2024 36 S-Patient states she has been coughing for 1 week and thought that she would be better by now, Is wheezing, using inhaler and nebulizer. Is still constantly coughing B-Went to [facility] last week and was on Steroids that did not seem to help. A-Patient has green sputum, did not test for COVID. States has seasonal allergies but this is much worse than in the past, has had this since last Saturday R-Pt would like to be seen and no appointments available-Please call patient at [phone], advised to use Nebulizer with back to back treatment 20-30 min apart x1 and if any worsening symptoms to call back. [facility] 36 Reason for Disposition Wheezing is present Answer Assessment - Initial Assessment Questions . Protocols used: Cough - Acute Aehpudyurn-IJNKW-CY [facility] CNTHERAPYon 07-24-2024 CNTHERAPY OT/PT/Speech Visit (LDPT) DEBORAH LUGO ([id number]) 1965 F Date Time Provider Department 07/24/24 3:00 PM SARITHA JARAMILLO LDPT Date Time Provider Department Center 07/24/2024 3:00 PM [id number] JARAMILLO [facility] Reason for Visit: Physical Therapy [503] PT Progress Note [1596] Primary Visit Diagnosis:Dizziness [R42] Other Visit Diagnosis:Benign paroxysmal positional vertigo of right ear [H81.11] Allergies As of Date: 07/24/2024 Noted Allergy Reaction KIARA INHIBITORS 11/07/2015 14 - Other: See Comments Comments: Facial swelling ADHESIVE 11/07/2015 16 - Unknown ADHESIVE TAPE (ROSINS) 11/06/2012 2 - Rash LATEX 11/07/2015 16 - Unknown LISINOPRIL 11/07/2015 16 - Unknown SEASONAL ALLERGIES 07/20/2010 5 - Intolerance SULFA (SULFONAMIDE ANTIBIOTICS) 07/20/2010 4 - Hives Date Reviewed: 07/23/2024 Reviewed by: Angelic Dubose MA - Fully Assessed Prescriptions as of 07/24/2024 - azelastine 0.1% nasal spray Use 2 sprays in each nostril once daily. - cetirizine (ZYRTEC) 10 mg tablet Take 1 tablet by mouth once daily. - Vit B Comp and C-Vit E-FA-Selena-Zn 0.4 mg tab Take 1 tablet by mouth once daily. - predniSONE (DELTASONE) 10 mg tablet Take 3 tablets by mouth once daily for 3 days, THEN 2 tablets once daily for 3 days, THEN 1 tablet once daily for 3 days. - Promethazine-DM (PHENERGAN-DM) 6.25-15 mg/5 mL syrup Take 3 mL by mouth four times a day as needed. - benzonatate (TESSALON PERLES) 100 mg capsule Take 1-2 capsules by mouth three times a day as needed for cough. - TRINTELLIX 10 mg tablet TAKE 1 TABLET BY MOUTH EVERY DAY - losartan (COZAAR) 50 mg tablet TAKE 1 TABLET BY MOUTH EVERY DAY - albuterol (PROVENTIL) 5 mg/mL nebu INHALE 0.5 ML INSTRUCTED EVERY 6 HOURS NEEDED FOR WHEEZING/SHORTNESS OF BREATH. - guaiFENesin (MUCINEX) 600 mg 12 hr tablet Take 1-2 tablets by mouth twice daily. - ibuprofen (MOTRIN) 600 mg tablet Take 1 tablet by mouth every 6 hours as needed for pain. - fluticasone (FLONASE ALLERGY RELIEF) 50 mcg/actuation nasal spray Use 1 [place] in each nostril once daily. - tacrolimus (PROTOPIC) 0.1 % ointment APPLY TOPICALLY TO AFFECTED AREA ONCE EVERY MORNING - clobetasol (TEMOVATE) 0.05 % ointment APPLY TO AFFECTED AREAS ONCE A DAY AT NIGHT TIME EXTERNALLY 14 DAY(S) - albuterol HFA (PROAIR HFA) 90 mcg/actuation inhaler Inhale 2 Puffs as instructed every 4 hours as needed for Wheezing/Shortness of Breath. - Blood Pressure Monitor 1 Each as directed. - albuterol (PROVENTIL) 2.5 mg /3 mL (0.083 %) nebulizer solution Use 3 mL via nebulizer every 6 hours as needed for Wheezing/Shortness of Breath. - EPINEPHrine (EPIPEN) 0.3 mg/0.3 mL auto-injector Use as directed - MULTIVIT ANDMINERALS/FERROUS FUM (MULTI VITAMIN ORAL) Take 1 tablet by mouth once daily. - cholecalciferol (VITAMIN D3) 1,000 unit tab tablet Take 1,000 Units by mouth once daily. Relocation Director: Addendum Therapy (PT/OT/Speech/Resp) ID: [id number] 07/24/2024 3:33 PM Author: SARITHA JARAMILLO Signed by SARITHA JARAMILLO PT on 07/24/2024 at 3:33 PM * * * This document replaces document [id number] * * * Document text: Program_ID:[id number] Access Code: [email or web address] URL: [email or web address] Date: 07-24-2024 Prepared By: Saritha Jaramillo Program Notes Exercises - Supine Chin Tuck - 1 x daily - 5 x weekly - 2 sets - 10 reps - Supine Thoracic Mobilization Towel Roll Vertical with Arm Stretch - 1 x daily - 5 x weekly - 2 sets - 10 reps ----- Normal [facility] THERAPY NTon 07-24-2024 THERAPY NT HNO ID: [id number] Author: SARITHA JARAMILLO PT Service: Physical Therapy Author Type: Physical Therapist Type: Therapy (PT/OT/Speech/Resp) Filed: 07/24/2024 15:33 Note Text: Program_ID:[id number] Access Code: [email or web address] URL: [email or web address] Date: 07-24-2024 Prepared By: Saritha Jaramillo Program Notes Exercises - Supine Chin Tuck - 1 x daily - 5 x weekly - 2 sets - 10 reps - Supine Thoracic Mobilization Towel Roll Vertical with Arm Stretch - 1 x daily - 5 x weekly - 2 sets - 10 reps Normal [facility] CNOVon 07-23-2024 CNOV Office Visit (PRASHANT ) DEBORAH LUGO ([id number]) 1965 F Date Time Provider Department 07/23/24 12:10 PM TIMMY LEMUS During your visit today, we recorded the following information about you: Temperature Pulse Respiration Blood pressure 99 degrees 76/minute 16/minute 141/82 Weight 98.9 kg Timmy Lemus APRN.AUTOMATION SALES MANAGER 07/23/2024 12:35 PM Signed [facility] Subjective The patient is a 59-year-old female with a history of asthma and seasonal allergies, presenting with dyspnea, chest tightness, and cough. HPI Dyspnea and Chest Tightness: - Onset of symptoms a few days ago, including dyspnea, chest tightness, and wheezing. - Symptoms occur annually around late June. - Denies recent illness. - Using albuterol inhaler once or twice daily; also using a nebulizer at home, most recently the past two nights. - Denies significant congestion or rhinorrhea; notes clear nasal drainage. - Symptoms include an annoying dry cough. - Taking Zyrtec daily and received allergy shots on Saturday; cough began Saturday evening. - Uses Flonase intermittently. Review of Systems Ears/Nose/Mouth/Throa t: (+) nasal drainage Respiratory: (+) shortness of breath, (+) chest tightness, (+) dry cough, (+) wheezing Objective BP 141/82 (BP Site: Left Arm, BP Position: Sitting, BP Cuff Size: Regular Adult) Pulse 76 Temp 37.2 ?C (99 ?F) (Left Tympanic) Resp 16 Wt 98.9 kg (218 lb 2.3 oz) LMP 03/24/2013 SpO2 95% BMI 39.26 kg/m? Physical Exam General: No acute distress. HEENT: Oropharynx without erythema; tympanic membranes clear bilaterally. CV: Normal heart sounds. Resp: Breath sounds diminished bilaterally. MDM 1. Acute cough (R05.1) 2. Wheezing (R06.2) 3. SOB (shortness of breath) (R06.02) - Examination reveals diminished breath sounds, indicating narrowed airways; no wheezing auscultated. - Prescribed prednisone taper: 30 mg daily for 3 days, 20 mg daily for 3 days, 10 mg daily for 3 days. - Prescribed prescription-strength antitussive for nocturnal use to aid sleep. - Advised increased use of albuterol inhaler every 4-6 hours as needed for bronchospasm relief; instructed on alternating use with nebulizer treatment. - Discussed the role of corticosteroids in reducing pulmonary inflammation and the mechanism of action of albuterol in bronchodilation. - Recommended steam inhalation and purposeful deep breathing exercises to maintain airway patency. - Advised use of plain Mucinex to facilitate expectoration as symptoms improve. - Patient understands and agrees with the treatment plan. Take the prednisone taper as prescribed using 10 mg tablets: - Take 3 tablets per day for 3 days, - Then take 2 tablets per day for 3 days, - Then take 1 tablet per day for 3 days (you may adjust the taper if you start feeling better). Use the prescribed cough medicine at bedtime as needed to help suppress your cough and assist with sleep. For shortness of breath or wheezing, use your albuterol inhaler every 4 to 6 hours as needed. If you feel you need extra relief--especially before bed--you may use your nebulizer instead (choose one option each time). Practice deep breathing and purposeful coughing during the day to help clear your lungs; using steam may also be beneficial. Take plain Mucinex as directed to help thin out and loosen mucus if you begin coughing up thick secretions. Continue taking your daily Zyrtec for seasonal allergies and use your Flonase when needed. All prescriptions have been sent to [facility]. Medical Decision Making: Problems: Moderate: New problem with uncertain prognosis Data: Unique source(s) for external note(s) reviewed: 1 Risk: Moderate: Drug management Medical Decision Making Level: 4 - Moderate Timmy Lemus APRN.CNP 07/23/2024 12:31 PM Signed UPPER RESPIRATORY INFECTIONS Most cases are caused by viruses and most cases are mild, temporary, and harmless. Symptoms can last 2 to 3 weeks and can include: nasal congestion, sore throat, coughing, muscles aches, headaches, nausea, diarrhea, fatigue and fever. Rhinovirus, RSV, Covid, Influenza A and B, Parainfluenza are just a few COMMON respiratory viruses that cause sinus symptoms and cough. Antibiotics do NOT treat viruses. Taking 1 round of antibiotics can destroy your gut normal bailee (good bacteria) for up to 6 months. This can affect your weight, skin, digestion, mental health and immune system. 1. Drink plenty of fluids. 2. Get lots of rest. 3. Avoid dehydrants such as caffeine and alcohol. 4. Nasal saline is an effective decongestant and be used frequently throughout the day. 5. To loosen phlegm and help coughing, drink plenty of fluids and using a humidif (more content not included)... Normal [facility] CNTHERAPYon 04-22-2025 CNTHERAPY OT/PT/Speech Visit (LDPT) LUGODEBORAH ([id number]) 1965 F Date Time Provider Department 07/14/24 2:15 PM JEAN MARIE PLASENCIA LDPT Date Time Provider Department [place] 07/14/2024 2:15 PM [id number] MARIE PLASENCIALDHAWA [facility] Reason for Visit: Physical Therapy [503] Primary Visit Diagnosis:Dizziness [R42] Other Visit Diagnoses:Benign paroxysmal positional vertigo of right ear [H81.11] Posture abnormality [R29.3] Allergies As of Date: 07/14/2024 Noted Allergy Reaction KIARA INHIBITORS 11/07/2015 14 - Other: See Comments Comments: Facial swelling ADHESIVE 11/07/2015 16 - Unknown ADHESIVE TAPE (ROSINS) 11/06/2012 2 - Rash LATEX 11/07/2015 16 - Unknown LISINOPRIL 11/07/2015 16 - Unknown SEASONAL ALLERGIES 07/20/2010 5 - Intolerance SULFA (SULFONAMIDE ANTIBIOTICS) 07/20/2010 4 - Hives Date Reviewed: 09/28/2023 Reviewed by: Celia Riddle PATaniaC - Fully Assessed Prescriptions as of 07/14/2024 - benzonatate (TESSALON PERLES) 100 mg capsule Take 1-2 capsules by mouth three times a day as needed for cough. - TRINTELLIX 10 mg tablet TAKE 1 TABLET BY MOUTH EVERY DAY - losartan (COZAAR) 50 mg tablet TAKE 1 TABLET BY MOUTH EVERY DAY - albuterol (PROVENTIL) 5 mg/mL nebu INHALE 0.5 ML INSTRUCTED EVERY 6 HOURS NEEDED FOR WHEEZING/SHORTNESS OF BREATH. - guaiFENesin (MUCINEX) 600 mg 12 hr tablet Take 1-2 tablets by mouth twice daily. - ibuprofen (MOTRIN) 600 mg tablet Take 1 tablet by mouth every 6 hours as needed for pain. - fluticasone (FLONASE ALLERGY RELIEF) 50 mcg/actuation nasal spray Use 1 [place] in each nostril once daily. - tacrolimus (PROTOPIC) 0.1 % ointment APPLY TOPICALLY TO AFFECTED AREA ONCE EVERY MORNING - clobetasol (TEMOVATE) 0.05 % ointment APPLY TO AFFECTED AREAS ONCE A DAY AT NIGHT TIME EXTERNALLY 14 DAY(S) - albuterol HFA (PROAIR HFA) 90 mcg/actuation inhaler Inhale 2 Puffs as instructed every 4 hours as needed for Wheezing/Shortness of Breath. - Blood Pressure Monitor 1 Each as directed. - albuterol (PROVENTIL) 2.5 mg /3 mL (0.083 %) nebulizer solution Use 3 mL via nebulizer every 6 hours as needed for Wheezing/Shortness of Breath. - EPINEPHrine (EPIPEN) 0.3 mg/0.3 mL auto-injector Use as directed - MULTIVIT ANDMINERALS/FERROUS FUM (MULTI VITAMIN ORAL) Take 1 tablet by mouth once daily. - cholecalciferol (VITAMIN D3) 1,000 unit tab tablet Take 1,000 Units by mouth once daily. Normal [facility] CNTHERAPYon 07-10-2024 CNTHERAPY OT/PT/Speech Visit (LDPT) DEBORAH LUGO ([id number]) 1965 F Date Time Provider Department 07/10/24 12:45 PM SARITHA JARAMILLO LDPT Date Time Provider Department Center 07/10/2024 12:45 PM [id number], CHRISTI LDPT [facility] Reason for Visit: Physical Therapy [503] Primary Visit Diagnosis:Dizziness [R42] Other Visit Diagnoses:Benign paroxysmal positional vertigo of right ear [H81.11] Posture abnormality [R29.3] Allergies As of Date: 07/10/2024 Noted Allergy Reaction KIARA INHIBITORS 11/07/2015 14 - Other: See Comments Comments: Facial swelling ADHESIVE 11/07/2015 16 - Unknown ADHESIVE TAPE (ROSINS) 11/06/2012 2 - Rash LATEX 11/07/2015 16 - Unknown LISINOPRIL 11/07/2015 16 - Unknown SEASONAL ALLERGIES 07/20/2010 5 - Intolerance SULFA (SULFONAMIDE ANTIBIOTICS) 07/20/2010 4 - Hives Date Reviewed: 09/28/2023 Reviewed by: Celia Riddle PA-C - Fully Assessed Prescriptions as of 07/10/2024 - benzonatate (TESSALON PERLES) 100 mg capsule Take 1-2 capsules by mouth three times a day as needed for cough. - TRINTELLIX 10 mg tablet TAKE 1 TABLET BY MOUTH EVERY DAY - losartan (COZAAR) 50 mg tablet TAKE 1 TABLET BY MOUTH EVERY DAY - albuterol (PROVENTIL) 5 mg/mL nebu INHALE 0.5 ML INSTRUCTED EVERY 6 HOURS NEEDED FOR WHEEZING/SHORTNESS OF BREATH. - guaiFENesin (MUCINEX) 600 mg 12 hr tablet Take 1-2 tablets by mouth twice daily. - ibuprofen (MOTRIN) 600 mg tablet Take 1 tablet by mouth every 6 hours as needed for pain. - fluticasone (FLONASE ALLERGY RELIEF) 50 mcg/actuation nasal spray Use 1 [place] in each nostril once daily. - tacrolimus (PROTOPIC) 0.1 % ointment APPLY TOPICALLY TO AFFECTED AREA ONCE EVERY MORNING - clobetasol (TEMOVATE) 0.05 % ointment APPLY TO AFFECTED AREAS ONCE A DAY AT NIGHT TIME EXTERNALLY 14 DAY(S) - albuterol HFA (PROAIR HFA) 90 mcg/actuation inhaler Inhale 2 Puffs as instructed every 4 hours as needed for Wheezing/Shortness of Breath. - Blood Pressure Monitor 1 Each as directed. - albuterol (PROVENTIL) 2.5 mg /3 mL (0.083 %) nebulizer solution Use 3 mL via nebulizer every 6 hours as needed for Wheezing/Shortness of Breath. - EPINEPHrine (EPIPEN) 0.3 mg/0.3 mL auto-injector Use as directed - MULTIVIT ANDMINERALS/FERROUS FUM (MULTI VITAMIN ORAL) Take 1 tablet by mouth once daily. - cholecalciferol (VITAMIN D3) 1,000 unit tab tablet Take 1,000 Units by mouth once daily. Relocation Director: Therapy (PT/OT/Speech/Resp) ID: [id number] 07/10/2024 1:22 PM Author: SARITHA JARAMILLO Signed by SARITHA JARAMILLO PT on 07/10/2024 at 1:22 PM Document text: Program_ID:[id number] Access Code: [email or web address] URL: [email or web address] Date: 07-10-2024 Prepared By: Saritha Jaramillo Program Notes Exercises - Supine Chin Tuck - 1 x daily - 5 x weekly - 2 sets - 10 reps - Seated Cervical Retraction - 1 x daily - 5 x weekly - 2 sets - 10 reps - Seated Gentle Upper Trapezius Stretch - 1 x daily - 5 x weekly - 2 sets - 5 reps ----- Normal [facility] THERAPY NTon 07-10-2024 THERAPY NT HNO ID: [id number] Author: SARITHA JARAMILLO, PT Service: Physical Therapy Author Type: Physical Therapist Type: Therapy (PT/OT/Speech/Resp) Filed: 07/10/2024 13:22 Note Text: Program_ID:[id number] Access Code: [email or web address] URL: [email or web address] Date: 07-10-2024 Prepared By: Saritha Jaramillo Program Notes Exercises - Supine Chin Tuck - 1 x daily - 5 x weekly - 2 sets - 10 reps - Seated Cervical Retraction - 1 x daily - 5 x weekly - 2 sets - 10 reps - Seated Gentle Upper Trapezius Stretch - 1 x daily - 5 x weekly - 2 sets - 5 reps Normal [facility] CNTHERAPYon 07-02-2024 CNTHERAPY OT/PT/Speech Visit (LDPT) DEBORAH LUGO ([id number]) 1965 F Date Time Provider Department 07/02/24 10:00 AM SARITHA JARAMILLO Date Time Provider Department [place] 07/02/2024 10:00 AM [id number] JARAMILLO [facility] Reason for Visit: PT Eval [747] Primary Visit Diagnosis:Dizziness [R42] Other Visit Diagnosis:Benign paroxysmal positional vertigo of right ear [H81.11] Allergies As of Date: 07/02/2024 Noted Allergy Reaction KIARA INHIBITORS 11/07/2015 14 - Other: See Comments Comments: Facial swelling ADHESIVE 11/07/2015 16 - Unknown ADHESIVE TAPE (ROSINS) 11/06/2012 2 - Rash LATEX 11/07/2015 16 - Unknown LISINOPRIL 11/07/2015 16 - Unknown SEASONAL ALLERGIES 07/20/2010 5 - Intolerance SULFA (SULFONAMIDE ANTIBIOTICS) 07/20/2010 4 - Hives Date Reviewed: 09/28/2023 Reviewed by: Celia Riddle PA-C - Fully Assessed Prescriptions as of 07/02/2024 - benzonatate (TESSALON PERLES) 100 mg capsule Take 1-2 capsules by mouth three times a day as needed for cough. - TRINTELLIX 10 mg tablet TAKE 1 TABLET BY MOUTH EVERY DAY - losartan (COZAAR) 50 mg tablet TAKE 1 TABLET BY MOUTH EVERY DAY - albuterol (PROVENTIL) 5 mg/mL nebu INHALE 0.5 ML INSTRUCTED EVERY 6 HOURS NEEDED FOR WHEEZING/SHORTNESS OF BREATH. - guaiFENesin (MUCINEX) 600 mg 12 hr tablet Take 1-2 tablets by mouth twice daily. - ibuprofen (MOTRIN) 600 mg tablet Take 1 tablet by mouth every 6 hours as needed for pain. - fluticasone (FLONASE ALLERGY RELIEF) 50 mcg/actuation nasal spray Use 1 [place] in each nostril once daily. - tacrolimus (PROTOPIC) 0.1 % ointment APPLY TOPICALLY TO AFFECTED AREA ONCE EVERY MORNING - clobetasol (TEMOVATE) 0.05 % ointment APPLY TO AFFECTED AREAS ONCE A DAY AT NIGHT TIME EXTERNALLY 14 DAY(S) - albuterol HFA (PROAIR HFA) 90 mcg/actuation inhaler Inhale 2 Puffs as instructed every 4 hours as needed for Wheezing/Shortness of Breath. - Blood Pressure Monitor 1 Each as directed. - albuterol (PROVENTIL) 2.5 mg /3 mL (0.083 %) nebulizer solution Use 3 mL via nebulizer every 6 hours as needed for Wheezing/Shortness of Breath. - EPINEPHrine (EPIPEN) 0.3 mg/0.3 mL auto-injector Use as directed - MULTIVIT ANDMINERALS/FERROUS FUM (MULTI VITAMIN ORAL) Take 1 tablet by mouth once daily. - cholecalciferol (VITAMIN D3) 1,000 unit tab tablet Take 1,000 Units by mouth once daily. [facility] 10-19-2023 36 S: Patient spoke deya GUERRERO nurse regarding diarrhea B: Onset of symptoms/concern Saturday A: Patient reports starting Metformin 1000 mg BID on Saturday. New medication for her. So far today, diarrhea 6 times. Abdominal cramps. Is taking the medication with meals. Denies bloody stool or vomiting. R: Secure chat message sent to Dr. Cooper- Just have her stop it for now and call on Saturday and let us know how she's doing Return call to patient with Allison Heredia's recommendation. Also discussed with diarrhea, it is important to stay hydrated. Can do water or sugar-free sports drinks. Also can eat a bland diet or whatever she thinks she would tolerate. Patient understands care advice. No further needs at this time. Patient instructed to call back with new or worsening symptoms. Reason for Disposition [1] SEVERE diarrhea (e.g., 7 or more times / day more than normal) AND [2] present > 24 hours (1 day) Protocols used: [facility] 36 S: Patient spoke deya GUERRERO nurse regarding medication refill. B: Medication: Trintellix 20 mg, one tablet, by mouth, every day. A: Patient needs a refill on the above medication and states she has two pills left. Allergies and pharmacy verified. R: Message to physician, please advise. Advised patient office will get back with her once physician reviews the message. She verbalized understanding and has no further needs at this time. Reason for Disposition ? [1] Prescription refill request for NON-ESSENTIAL medicine (i.e., no harm to patient if med not taken) AND [2] triager unable to refill per department policy Protocols used: Medication Refill and Renewal [facility] Cervical or vagninal specime n microscopic examination by cytology stain (reported asOrdered By: Caridad Lopez on 10-03-2022 Cytology report Cyto stain Doc (Cvx/Vag) Comment . [facility] Comment on above: The Pap smear is a s creening test designed to aid in thedetection of premalignant and malignant conditions of theuterine cervix. It is not a diagnostic procedure andshould not be used as the sole means of detecting cervicalcancer. Both false-positive and false-negative reports dooccur. Detection in cervical specim en of any of human papilloma virus (HPV) 16, 18, 31, 33,Ordered By: Caridad Lopez on 10-03-2022 HPV 16+18+31+33+35+39+45+5 1+52+56+58+59+66+68 DNA Probe+sig amp Ql (Cvx) Negative Negative [facility] Comment on above: This nucleic acid am plification test detects fourteen high- risk HPV types (16,18,31,33,35,39,45,51,52,56,58,59,66,68)without differentiation. Laboratory - CytologyOrdered By: Caridad Lopez on 10-03-2022 Blender Helper Cyto stain Nom (Cvx/Vag) [ID] Comment . [facility] Comment on above: Elaine Navarrete, Cyto technologist (ASCP) Laboratory - Miscellaneous t estsOrdered By: Caridad Lopez on 10-03-2022 Service comment (Unsp spec) [Interp] Comment . [facility] Comment on above: This liquid based Th inPrep(R) pap test was screened withthe use of an image guided system. Service comment (Unsp spec) [Interp] . . [facility] Liquid-based cerv Pap + CT/G C by BORA w reflex to high-risk HPV for ASCUSOrdered By: Caridad Lopez on 10-03-2022 Cytology report Cyto stain.thin prep Doc (Cvx/Vag) Comment . [facility] Comment on above: Criteria not met, HP V Genotype not performed.Performed at: WB - [facility] [place], [place] [id number] Director: Lurdes Denney MD, Phone: [phone] at: =G - [facility] [id number] [facility], [place] [id number] Director: Lurdes Denney MD, Phone: [phone] No Panel InformationOrdered By: Caridad Lopez on 10-03-2022 Pathology report final diagnosis Narrative Comment . [facility] Comment on above: NEGATIVE FOR INTRAEP ITHELIAL LESION OR MALIGNANCY.CELLULAR CHANGES ASSOCIATED WITH ATROPHY ARE PRESENT. Basic metabolic 2000 panelon 02-07-2022 Anion gap [Moles/Vol] 8 mmol/L Low 9 - 18 mmol/L [facility] Calcium [Mass/Vol] 9.3 mg/dL 8.5 - 10. 2 mg/dL [facility] Chloride [Moles/Vol] 104 mmol/L 97 - 105 mmol/L [facility] CO2 [Moles/Vol] 29 mmol/L 22 - 30 mmol/L [facility] Creatinine [Mass/Vol] 0.76 mg/dL 0.58 - 0.96 mg/dL [facility] Estimated Glomerular Filtration Rate 92 mL/min/1.73m >=60 mL/min/1.73m [facility] Glucose [Mass/Vol] 104 mg/dL High 74 - 99 mg/dL [facility] Potassium [Moles/Vol] 3.9 mmol/L 3.7 - 5.1 mmol/L [facility] Sodium [Moles/Vol] 141 mmol/L 136 - 144 mmol/L [facility] Urea nitrogen [Mass/Vol] 11 mg/dL 7 - 21 mg/dL [facility] CBC panel Auto (Bld)on 02-07 Erythrocyte distribution width (RBC) [Ratio] 14.7 % 11.5 - 15.0 % [facility] Hematocrit (Bld) [Volume fraction] 36.9 % 36.0 - 46.0 % [facility] Hemoglobin (Bld) [Mass/Vol] 11.8 g/dL 11.5 - 15.5 g/dL [facility] MCH (RBC) [Entitic mass] 27.5 pg 26.0 - 34.0 pg [facility] MCHC (RBC) [Mass/Vol] 32.0 g/dL 30.5 - 36.0 g/dL [facility] MCV (RBC) [Entitic vol] 86.0 fL 80.0 - 100.0 fL [facility] Platelet mean volume (Bld) [Entitic vol] 11.2 fL 9.0 - 12.7 fL [facility] Platelets (Bld) [#/Vol] 239 10*3/uL 150 - 400 k/uL [facility] RBC (Bld) [#/Vol] 4.29 10*6/uL 3.90 - 5.2 0 m/uL [facility] WBC (Bld) [#/Vol] 5.07 10*3/uL 3.70 - 11. 00 k/uL [facility] TSH BLDon 02-07-2022 TSH Qn 1.180 m[IU]/L 0.270 - 4.200 mIU/L [facility] CT CHEST W IVCON PEon 2020 CT CHEST W IVCON PE Final Report DATE OF EXAM: Jun 01 2020 1:43PM [facility] 0540 - CT CHEST W IVCON PE / PROCEDURE REASON: PE suspected, high pretest prob Physician Interpretation EXAMINATION: CHEST CT WITH CONTRAST (PULMONARY EMBOLISM PROTOCOL) CLINICAL HISTORY: PE suspected, high pretest prob . Chest pain, cough, and dyspnea Technique: Spiral CT acquisition of the chest from the thoracic inlet to the upper abdomen following IV contrast. Axial 1 and 3 mm thick slices plus coronal and sagittal reformatted images. MQ: CTCP_5 Contrast: 100 mL Omnipaque [address] Radiation dose: Integrated Dose-length product (DLP) for this visit = 378.[address] Dose Reduction Employed: Automated exposure control (AEC) Comparison: No relevant prior studies available. RESULT: Limitations: None. Evaluation for thromboembolic disease: - Right heart chambers: No thromboembolic disease. - Main pulmonary arteries: No thromboembolic disease. - Lobar pulmonary arteries: No thromboembolic disease. - Segmental pulmonary arteries: No thromboembolic disease. - Subsegmental pulmonary arteries: No thromboembolic disease. - Additional pulmonary artery findings: The main pulmonary artery is normal in caliber. Lines, tubes, and devices: None. Lung parenchyma and airways: Scattered bilaterally, there is some mosaic attenuation. This is a nonspecific finding but can be seen with small airways obstructive disease. The lungs are otherwise clear of focal consolidation. Pleural space: No pleural effusion. No pleural thickening. Lower neck, lymph nodes, and mediastinum: The imaged thyroid gland is normal. No lymphadenopathy in the supraclavicular, axillary, mediastinal, or hilar regions. Heart, pericardium, and thoracic vessels: The thoracic aorta is normal in caliber. The cardiac chambers are normal in size. No coronary artery atherosclerotic calcifications are noted, although the study is not optimized for coronary assessment. No pericardial effusion or thickening. Bones and soft tissues: There are some degenerative arthritic changes in the thoracic spine. Slight concavities at superior endplates of multiple vertebral bodies suggest Schmorl's nodes. Upper abdomen: No abnormality in the imaged upper abdomen. Director Corporate Sales (topogram) images: No additional findings. IMPRESSION: No CT evidence of pulmonary embolism. Possible small airways obstructive disease. A stat report was provided as requested. Steam Trap Worker: [facility] Transcribe Date/Time: Jun 01 2020 1:47P Dictated by : SONIA RAMOS MD This examination was interpreted and the report reviewed and electronically signed by: SONIA RAMOS MD on Jun 01 2020 1:53PM EST Normal [facility] XR CHEST 1V FRONTALon 2020 XR CHEST 1V FRONTAL Final Report DATE OF EXAM: Jun 01 2020 11:11AM LDX 5290 - XR CHEST 1V FRONTAL / PROCEDURE REASON: Acute respiratory illness Physician Interpretation EXAMINATION: CHEST RADIOGRAPH (SINGLE VIEW AP OR PA) CLINICAL HISTORY: Cough. Shortness of breath. MQ: XC1_5 Comparison: Chest radiographs 04/06/2016, 11/25/2019 and 12/03/2019. RESULT: Limitations: Body habitus and underpenetration. Lines, tubes, and devices: Multiple monitoring wires overlie the chest. Lungs and pleura: No parenchymal consolidation. No pleural effusion. Cardiomediastinal silhouette: Normal cardiomediastinal silhouette. Other: None. IMPRESSION: No acute radiographic abnormality. Steam Trap Worker: [facility] Transcribe Date/Time: Jun 01 2020 11:21A Dictated by : NIMISHA BARNEY MD This examination was interpreted and the report reviewed and electronically signed by: NIMISHA BARNEY MD on Jun 01 2020 11:24AM EST Normal [facility] XR ANKLE 3V AP/LAT/OBL RTon 05-15-2020 XR ANKLE 3V AP/LAT/OBL RT Final Report DATE OF EXAM: May 15 2020 11:43AM LDX 5297 - XR ANKLE 3V AP/LAT/OBL RT / PROCEDURE REASON: Ankle trauma, continued pain, initial exam Physician Interpretation RIGHT FOOT AND RIGHT ANKLE CLINICAL INDICATION: Patient twisted right ankle. Pain and swelling. COMPARISON: None. FINDINGS: Frontal, oblique and lateral views of the right foot and the right ankle. Ankle mortise is symmetric and the talar dome is intact. Ankle and foot alignment is normal. There is no fracture or dislocation. There is no abnormality in the soft tissues. IMPRESSION: No acute osseous abnormality. Steam Trap Worker: [facility] Transcribe Date/Time: May 15 2020 12:00P Dictated by : NASRA GALAN MD This examination was interpreted and the report reviewed and electronically signed by: NASRA GALAN MD on May 15 2020 12:01PM EST Normal [facility] XR FOOT 3V AP/LAT/OBL RTon 0 05-15-2020 XR FOOT 3V AP/LAT/OBL RT Final Report DATE OF EXAM: May 15 2020 11:43AM LDX 5337 - XR FOOT 3V AP/LAT/OBL RT / PROCEDURE REASON: Foot trauma, [place] positive, fx suspected, initial exam Physician Interpretation RIGHT FOOT AND RIGHT ANKLE CLINICAL INDICATION: Patient twisted right ankle. Pain and swelling. COMPARISON: None. FINDINGS: Frontal, oblique and lateral views of the right foot and the right ankle. Ankle mortise is symmetric and the talar dome is intact. Ankle and foot alignment is normal. There is no fracture or dislocation. There is no abnormality in the soft tissues. IMPRESSION: No acute osseous abnormality. Steam Trap Worker: [facility] Transcribe Date/Time: May 15 2020 12:00P Dictated by : NASRA GALAN MD This examination was interpreted and the report reviewed and electronically signed by: NASRA GALAN MD on May 15 2020 12:01PM EST Normal [facility] Coronavirus 2019on 0 COVID 19 Result CERT OCCUPATIONAL THERAPY ASST Negative Normal CORNEG [facility] Comment on above: Result Comment: Nega tive for COVID19 (SARS CoV2) by PCR. This test was developed and its performance characteristics determined by [facility]'s [facility] [place]. This test has been authorized by FDA under an Emergency Use Authorization (EUA). This test has been validated in accordance with the FDA's Guidance Document Policy for Diagnostics Testing in Laboratories Certified to Perform High Complexity Testing under CLIA prior to Emergency use Authorization for Coronavirus Disease 2019 during the Public Health Emergency issued on May 23, 2019. Performing Laboratory: [place] [place] [place] [address] Performed By: #### L LP8 #### [address] [address] XR CHEST 1V FRONTALon 2019 XR CHEST 1V FRONTAL Final Report DATE OF EXAM: Dec 03 2019 4:42PM LDX 5290 - XR CHEST 1V FRONTAL / PROCEDURE REASON: Acute respiratory illness Physician Interpretation EXAMINATION: CHEST RADIOGRAPH (SINGLE VIEW AP OR PA) Clinical History: Acute respiratory illness M: XC1_4 Comparison: 11/25/2019 RESULT: Lines, tubes, and devices: None. Lungs and pleura: No consolidation. No lung mass. No pleural effusion. Cardiomediastinal silhouette: Normal cardiomediastinal silhouette. Other: No acute bony abnormality IMPRESSION: No acute radiographic abnormality. 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 Transcribe Date/Time: Dec 03 2019 4:49P Dictated by : MOE GUAMAN MD This examination was interpreted and the report reviewed and electronically signed by: MOE GUAMAN MD on Dec 03 2019 4:51PM EST Normal [facility] XR CHEST 2V FRONTAL/LATon XR CHEST 2V FRONTAL/LAT Final Report DATE OF EXAM: Nov 25 2019 4:33PM LDX 5291 - XR CHEST 2V FRONTAL/LAT / PROCEDURE REASON: Cough Physician Interpretation EXAMINATION: CHEST RADIOGRAPH (2 VIEW FRONTAL & LATERAL) CLINICAL HISTORY: Cough MQ: XC2_6 EXAM DATE/TIME: 11/25/2019 4:33 PM COMPARISON: 04/06/2016 RESULT: Lines, tubes, and devices: None. Lungs and pleura: No consolidation. No lung mass. No pleural effusion. No pneumothorax. Cardiomediastinal silhouette: Normal cardiomediastinal silhouette. Bones and soft tissues: Osteopenia and degenerative changes. IMPRESSION: No acute radiographic abnormality. Steam Trap Worker: TINO Transcribe Date/Time: Nov 25 2019 4:38P Dictated by : IWONA MARTIN MD This examination was interpreted and the report reviewed and electronically signed by: IWONA MARTIN MD on Nov 25 2019 4:38PM EST Normal [facility] HIV Screenon 09-21-2019 HIV Screen Nonreactive Normal Nonreactive [facility] Comment on above: Result Comment: Gunjan ents taking a biotin dose of up to 5 mg/day should refrain from taking biotin for 4 hours prior to sample collection. Patients taking a biotin dose of 5 to 10 mg/day should refrain from taking biotin for 8 hours prior to sample collection. Patients taking a biotin dose > 10 mg/day should consult with their physician or the laboratory prior to having a sample taken. Clinicians should consider biotin interference as a source of error, when clinically suspicious of the laboratory result. Performed By: #### L LP8 #### [place] [address] Lipid Profile, Bas[place] 09-17 Cholesterol [Mass/Vol] 171 mg/dL Normal 0-199 [facility] Comment on above: Result Comment: Tota l Cholesterol < 200 mg/dL, Desirable Total Cholesterol 200 to 239 mg/dL, Borderline high Total Cholesterol > 239 mg/dL, High Performed By: #### L LPF #### [address] [address] Cholesterol in HDL [Mass/Vol] 41 mg/dL Normal [facility] Comment on above: Result Comment: Refe rence Range: HDL Cholesterol 40- 59 mg/dL, Acceptable HDL Cholesterol >59 mg/dL, High; Negative risk factor for coronary heart disease HDL Cholesterol <40 mg/dL, Low; Positive risk factor for coronary heart disease Performed By: #### L LPF #### [address] [address] Cholesterol in LDL [Mass/Vol] 102 mg/dL High 0-99 [facility] Comment on above: Result Comment: LDL Cholesterol < 100 mg/dL, Optimal LDL Cholesterol 100 to 129 mg/dL, Near optimal/above optimal LDL Cholesterol 130 to 159 mg/dL, Borderline high LDL Cholesterol 160 to 189 mg/dL, High LDL Cholesterol > 189 mg/dL, Very high Secondary prevention optimal LDL Cholesterol levels are recommended to be < 70 mg/dL Performed By: #### L LPF #### [place] [address] Cholesterol in LDL/Cholesterol in HDL [Mass ratio] 2.49 Normal 0.00-2.53 [facility] Comment on above: Performed By: #### L LPF #### [place] [address] Cholesterol.total/Chol esterol in HDL [Mass ratio] 4.17 {ratio} Normal 0.00-5.09 [facility] Comment on above: Performed By: #### L LPF #### [place] [address] FASTING TIME 10 Hrs Normal [facility] Comment on above: Performed By: #### L LPF #### [place] [address] Non-HDL Cholesterol 130 mg/dL High 0-129 [facility] Comment on above: Result Comment: Non HDL Cholesterol < 130 mg/dL, Optimal Non HDL Cholesterol 130 to 159 mg/dL, Near optimal/above optimal Non HDL Cholesterol 160 to 189 mg/dL, Borderline high Non HDL Cholesterol 190 to 219 mg/dL, High Non HDL Cholesterol > 219 mg/dL, Very high Secondary prevention optimal non HDL Cholesterol levels are recommended to be < 100 mg/dL Performed By: #### L LPF #### [place] [address] Triglyceride Blood 140 mg/dL Normal 0-149 [facility] Comment on above: Result Comment: Trig lycerides < 150 mg/dL, Normal Triglycerides 150 to 199 mg/dL, Borderline high Triglycerides 200 to 499 mg/dL, High Triglycerides > 499 mg/dL, Very high Performed By: #### L LPF #### [facility] [address] [place] [address] VLDL Cholesterol 28 mg/dL Normal 0-29 [facility] Comment on above: Performed By: #### L LPF #### [place] [address] Quantiferon (Rapd TB)on 06-25 Quantiferon (Rapd TB) SEE BELOW Normal [facility] Comment on above: Result Comment: TB N IL 0.03 IU/mL TB1 Ag minus Nil 0.01 <0.35 IU/mL TB2 Ag minus Nil 0.01 <0.35 IU/mL Mitogen minus Nil 9.67 TB Result Negative NEGAT Interpretation SEE BELOW No evidence of current or previous infection with Mycobacterium tuberculosis. Performing Laboratory: [facility] [address] [place] [address] Performed By: #### Q UANX #### [place] [address] Hep B Core Ab,Totalon 2019 Hep B Core Ab,Total Negative Normal NEGAT [facility] Comment on above: Result Comment: Perf orming Laboratory: [facility] [address] [place] [address] Performed By: #### H BCTX #### [place] [address] Hep. B Surface Abon 07-21-19 20 Hep. B Surface Ab < 3.1 Normal [facility] Comment on above: Result Comment: Hep B. Antibody < 10.0 mIU/mL is negative. Hep B. Antibody > or = 10.0 mIU/mL is positive. Performed By: #### A NTB #### [place] [address] Hep. B Surface Agon 07-21-19 20 Hep.B Surface Ag Negative Normal Negative [facility] Comment on above: Performed By: #### H BSAG #### [place] [address] Hepatitis C Antibodyon 07-20 Hepatitis C Ab Negative Normal Negative [facility] Comment on above: Performed By: #### H CVAB #### [address], [place] [address] Basic Panelon 07-20-2019 Anion gap [Moles/Vol] 11 mmol/L Normal 9-18 [facility] Comment on above: Performed By: #### L LP8 #### [facility] [address] [place], [place] [address] Calcium [Mass/Vol] 9.0 mg/dL Normal 8.5-10.2 [facility] Comment on above: Performed By: #### L LP8 #### [facility] [address] [place], [place] [address] Chloride [Moles/Vol] 101 mmol/L Normal 97-105 [facility] Comment on above: Performed By: #### L LP8 #### [facility] [address] [place], [place] [address] CO2 Blood 26 mmol/L Normal 22-30 [facility] Comment on above: Performed By: #### L LP8 #### [facility] [address] [place], [place] [address] Creatinine [Mass/Vol] 0.73 mg/dL Normal 0.58-0.96 [facility] Comment on above: Performed By: #### L LP8 #### [facility] [address] [place], [place] [address] Glucose [Mass/Vol] 110 mg/dL High 74-99 [facility] Comment on above: Result Comment: The [place] Diabetes Association (ADA) provides guidance for cutoff values for fasting glucose and random glucose. The ADA defines fasting as no caloric intake for at least 8 hours.Fasting plasma glucose results between 100 to 125 mg/dL indicate increased risk for diabetes (prediabetes). Fasting plasma glucose results greater than or equal to 126 mg/dL meet the criteria for diagnosis of diabetes. In the absence of unequivocal hyperglycemia, results should be confirmed by repeat testing. In a patient with classic symptoms of hyperglycemia or hyperglycemic crisis, random plasma glucose results greater than or equal to 200 mg/dL meet the criteria for diagnosis of diabetes. Reference: Standards of Medical Care in Diabetes 2016; [place] [employer] Association. Diabetes Care. 2016;39(Suppl 1). Performed By: #### L LP8 #### [facility] [address] [place], [place] [address] Potassium [Moles/Vol] 4.1 mmol/L Normal 3.7-5.1 [facility] Comment on above: Performed By: #### L LP8 #### [facility] [address] [place] [address] Sodium [Moles/Vol] 138 mmol/L Normal 136-144 [facility] Comment on above: Performed By: #### L LP8 #### [place] [address] Urea nitrogen [Mass/Vol] 9 mg/dL Normal 7-21 [facility] Comment on above: Performed By: #### L LP8 #### [place] [address] Hemogram/Diffon 07-20-2019 Abs. Baso 0.12 thou/cmm High 0.00-0.08 [facility] Comment on above: Performed By: #### L CBCD #### [place] [address] Abs. [place] 0.46 thou/cmm Normal 0.20-1.00 [facility] Comment on above: Performed By: #### L CBCD #### [place] [address] Abs. Neut (ANC) 3.39 thou/cmm Normal 3.00-5.67 [facility] Comment on above: Performed By: #### L CBCD #### [place] [address] Basophils/100 WBC (Bld) 1.7 % Normal [facility] Comment on above: Performed By: #### L CBCD #### [place] [address] Eosinophils (Bld) [#/Vol] 0.25 thou/cmm Normal 0.00-0.41 [facility] Comment on above: Performed By: #### L CBCD #### [place] [address] Eosinophils/100 WBC (Bld) 3.6 % Normal [facility] Comment on above: Performed By: #### L CBCD #### [facility] [address] [place], [place] [address] Erythrocyte distribution width (RBC) [Ratio] 14.9 % Normal 11.5-15.9 [facility] Comment on above: Performed By: #### L CBCD #### [facility] [address] [place], [place] [address] Hematocrit (Bld) [Volume fraction] 40.0 % Normal 37.0-47.0 [facility] Comment on above: Performed By: #### L CBCD #### [place] [address] Hemoglobin (Bld) [Mass/Vol] 12.8 g/dL Normal 12.0-16.0 [facility] Comment on above: Performed By: #### L CBCD #### [place] [address] Lymphocytes (Bld) [#/Vol] 2.78 thou/cmm Normal 1.50-3.65 [facility] Comment on above: Performed By: #### L CBCD #### [place] [address] Lymphocytes/100 WBC (Bld) 39.7 % Normal [facility] Comment on above: Performed By: #### L CBCD #### [address] [address] MCH (RBC) [Entitic mass] 26.7 pg Low 27.0-31.0 [facility] Comment on above: Performed By: #### L CBCD #### [address] [address] MCHC (RBC) [Mass/Vol] 32.0 % Normal 32.0-36.0 [facility] Comment on above: Performed By: #### L CBCD #### [address] [address] MCV (RBC) [Entitic vol] 83.5 fL Normal 81.0-99.0 [facility] Comment on above: Performed By: #### L CBCD #### [address] [place], [place] [address] Monocytes/100 WBC (Bld) 6.5 % Normal [facility] Comment on above: Performed By: #### L CBCD #### [facility] [address] [place] [address] Platelet mean volume (Bld) [Entitic vol] 11.5 fL High 7.1-10.5 [facility] Comment on above: Performed By: #### L CBCD #### [place] [address] Platelets (Bld) [#/Vol] 262 thou/cmm Normal 150-400 [facility] Comment on above: Performed By: #### L CBCD #### [place] [address] RBC (Bld) [#/Vol] 4.79 mil/cmm Normal 4.20-5.40 [facility] Comment on above: Performed By: #### L CBCD #### [place] [address] Seg Neutrophil 48.5 % Normal [facility] Comment on above: Performed By: #### L CBCD #### [place] [address] WBC (Bld) [#/Vol] 7.0 thou/cmm Normal 4.8-10.5 [facility] Comment on above: Performed By: #### L CBCD #### [place] [address] Hepatic Panelon 07-20-2019 Albumin [Mass/Vol] 4.1 g/dL Normal 3.9-4.9 [facility] Comment on above: Performed By: #### L HEPA #### [facility] [address] [place] [address] ALP [Catalytic activity/Vol] 109 U/L Normal 34-123 [facility] Comment on above: Performed By: #### L HEPA #### [place] [address] ALT-SGPT Blood 15 U/L Normal 7-38 [facility] Comment on above: Performed By: #### L HEPA #### [facility] [address] [place] [address] AST-SGOT Blood 15 U/L Normal 13-35 [facility] Comment on above: Performed By: #### L HEPA #### [facility] [address] [place] [address] Bilirubin Ql (U) 0.2 mg/dL Normal 0.2-1.3 [facility] Comment on above: Performed By: #### L HEPA #### [facility] [address] [place] [address] Bilirubin.direct [Mass/Vol] mg/dL Normal 0.0-0.2 [facility] Comment on above: Performed By: #### L HEPA #### [facility] [address] [place] [address] Protein [Mass/Vol] 8.0 g/dL Normal 6.3-8.0 [facility] Comment on above: Performed By: #### L HEPA #### [facility] [address] [place] [address] MDRD eGFRon 07-20-2019 GFR/1.73 sq M predicted among non-blacks MDRD (S/P/Bld) [Vol rate/Area] mL/min/{1.73_m2} Normal >60mL/min/1.73m 2 [facility] Comment on above: Result Comment: If t he patient is , multiply the result by 1.210. Performed By: #### L GFR #### [facility] [address] [place] [address] ED NOTEon 05-15-2018 ED NOTE HNO ID: [id number] Author: Ladonna (Medic) Anthony Layne Service: Emergency Medicine Author Type: Applications Engineering Manager and Evaporator Repairer Type: ED Notes Filed: 05/15/2018 3:24 PM Note Text: Pt comes to er c/o sore throat, swelling and right ear pain for two months. States she had biopsy Saturday and has had increased pain since. Denies sob, difficulty breathing, no issues swallowing. Denies all other complaints. Normal [facility] US Ndl Bx Lymph Node Superfi cialon 05-12-2018 Lymphocytes #/vol (Bld) Patient Name: DEBORAH LUGO Ultrasound Exam Date/Time 05/12/2018 11:45:44 EST Exam US Ndl Bx Lymph Node Superficial Ordering Physician MOISES SIN Accession Number [id number] CPT4 Codes 92051 (), 00580 () Reason For Exam rt cervical lymph node bx Report ULTRASOUND GUIDED RIGHT CERVICAL LYMPH NODE BIOPSY: CLINICAL INDICATION: Bilateral cervical lymphadenopathy, greater on the right. PROCEDURE: Following discussion with the patient regarding benefits and risks of the procedure informed consent was obtained. Ultrasound was used to examine the right neck and multiple enlarged right cervical lymph nodes were identified. Next, the skin and subcutis tissues overlying a right-sided enlarged cervical lymph node was sterilely prepared and local anesthesia was applied. Elements of sterile procedure included hand hygiene, sterile gloves, mask, two percent chlorhexidine solution, and sterile towels as well as a sterile ultrasound probe cover and sterile ultrasound gel. Next, under ultrasound guidance a 17- gauge introducer needle was advanced into the right sided enlarged cervical lymph node. Four 18-gauge core biopsy specimens were obtained and placed in formalin as well as RPMI. The samples were submitted to pathology for further evaluation. The needle was removed and a sterile dressing was placed over the access site. Follow-up ultrasound images demonstrated no evidence for hematoma. The patient tolerated the procedure well and suffered no immediate convocations. The patient was transferred to the recovery area in stable condition. IMPRESSION: 1. Technically successful core needle biopsy of an enlarged right-sided cervical lymph node. Report Dictated on Final Dictating Physician: MD PROCTOR GEORGE RICHARD Signed Date and Time: 05/12/2018 12:49 pm Signed by: MD PROCTOR GEORGE RICHARD Transcribed Date and Time: 05/12/2018 12:50 Normal [facility] Free T4on 05-02-2018 T4 free mass conc 1.08 ng/dL Normal 0.78-2.19 [facility] Comment on above: Performed By: #### F T4M, TSH5 #### [facility] [address] [place] [address] #### PTH3 #### [facility] [address] [place] [address] PTH, Intacton 05-02-2018 PTH, Intact 58.8 pg/mL Normal 15.0-63.0 [facility] Comment on above: Performed By: #### F T4M, TSH5 #### [facility] [address] [place] [address] #### PTH3 #### [facility] [address] [place] [address] Thyroid Stim. Hormoneon Thyroid Stim. Hormone 1.494 u[IU]/mL Normal 0.465-4.68 0 [facility] Comment on above: Performed By: #### F T4M, TSH5 #### [facility] [address] [place] [address] #### PTH3 #### [facility] [address] [place] [id number] US Head/Neck Soft Tissueon 0 04-14-2018 US Head/Neck Soft Tissue Patient Name: DEBORAH LUGO Ultrasound Exam Date/Time 04/14/2018 14:39:38 EST Exam US Head/Neck Soft Tissue Ordering Physician DO COOPER LISA Accession Number [id number] CPT4 Codes 55429 () Reason For Exam MASS OR LUMP, [...] left thyroid lobe, TI-RADS 3 and no follow-up is recommended. IMPRESSION: Abnormal lymph nodes are [...] DIANE Transcribed Date and Time: 04/14/2018 3:50 Normal [facility] Vital Signs Date Time Vital Sign Value Performing Clinician Facility 11-13-2024 10:47-0400 Body mass index (BMI) [Ratio] 39.6 kg/m2 Essie Gee BINGO CHECKER.AUTOMATION SALES MANAGER Work Phone: [facility] 11-13-2024 10:47-0400 Body weight 98.2 kg Essie Gee BINGO CHECKER.AUTOMATION SALES MANAGER Work Phone: [facility] 11-13-2024 10:47-0400 Diastolic blood pressure 79 mm[Hg] Essie Gee BINGO CHECKER.AUTOMATION SALES MANAGER Work Phone: [facility] 11-13-2024 10:47-0400 Heart rate 72 /min Essie Gee BINGO CHECKER.AUTOMATION SALES MANAGER Work Phone: [facility] 11-13-2024 10:47-0400 Respiratory rate 16 /min Essie Gee BINGO CHECKER.AUTOMATION SALES MANAGER Work Phone: [facility] 11-13-2024 10:47-0400 SaO2% (BldA) [Mass fraction] 99 % Essie Gee BINGO CHECKER.AUTOMATION SALES MANAGER Work Phone: [facility] 11-13-2024 10:47-0400 Systolic blood pressure 152 mm[Hg] Essie Gee BINGO CHECKER.AUTOMATION SALES MANAGER Work Phone: [facility] 07-23-2024 12:13-0400 Body mass index (BMI) [Ratio] 39.26 kg/m2 Timmy Ball BINGO CHECKER.AUTOMATION SALES MANAGER Work Phone: [facility] 07-23-2024 12:13-0400 Body temperature 99 [degF] Timmy Ball BINGO CHECKER.AUTOMATION SALES MANAGER Work Phone: [facility] 07-23-2024 12:13-0400 Body weight 98.95 kg Timmy Ball BINGO CHECKER.AUTOMATION SALES MANAGER Work Phone: [facility] 07-23-2024 12:13-0400 Diastolic blood pressure 82 mm[Hg] Timmy Ball BINGO CHECKER.AUTOMATION SALES MANAGER Work Phone: [facility] 07-23-2024 12:13-0400 Heart rate 76 /min Timmy Ball BINGO CHECKER.AUTOMATION SALES MANAGER Work Phone: [facility] 07-23-2024 12:13-0400 Respiratory rate 16 /min Timmy Ball BINGO CHECKER.AUTOMATION SALES MANAGER Work Phone: [facility] 07-23-2024 12:13-0400 SaO2% (BldA) [Mass fraction] 95 % Timmy Ball BINGO CHECKER.AUTOMATION SALES MANAGER Work Phone: [facility] 07-23-2024 12:13-0400 Systolic blood pressure 141 mm[Hg] Timmy Ball BINGO CHECKER.AUTOMATION SALES MANAGER Work Phone: [facility] 07-02-2024 10:00-0400 Diastolic blood pressure 76 mm[Hg] Saritha Jaramillo PT Work Phone: [facility] 07-02-2024 10:00-0400 Systolic blood pressure 155 mm[Hg] Saritha Nohemiasek PT Work Phone: [facility] 09-28-2023 11:49-0400 Body mass index (BMI) [Ratio] 37.95 kg/m2 Celia Mojicaald PA-C Work Phone: [facility] 09-28-2023 11:49-0400 Body temperature 98.6 [degF] Celia Wormald PA-C Work Phone: [facility] 09-28-2023 11:49-0400 Body weight 95.65 kg Celia Wormald PA-C Work Phone: [facility] 09-28-2023 11:49-0400 Diastolic blood pressure 82 mm[Hg] Celia Wormald PA-C Work Phone: [facility] 09-28-2023 11:49-0400 Heart rate 72 /min Celia Wormald PA-C Work Phone: [facility] 09-28-2023 11:49-0400 Respiratory rate 16 /min Celia Wormald PA-C Work Phone: [facility] 09-28-2023 11:49-0400 SaO2% (BldA) [Mass fraction] 99 % Celia Wormald PA-C Work Phone: [facility] 09-28-2023 11:49-0400 Systolic blood pressure 137 mm[Hg] Celia Wormald PA-C Work Phone: [facility] 10-03-2022 10:53-0400 Body height 157.48 cm CERT OCCUPATIONAL THERAPY ASST-C Toan Atkinsel CERT OCCUPATIONAL THERAPY ASST Work Phone: [facility] 10-03-2022 10:49-0400 Body mass index (BMI) [Ratio] 38.2 kg/m2 CERT OCCUPATIONAL THERAPY ASST-C Toan Galileo CERT OCCUPATIONAL THERAPY ASST Work Phone: [facility] 10-03-2022 10:49-0400 Body weight 94.97 kg CERT OCCUPATIONAL THERAPY ASST-C Toan Galileo CERT OCCUPATIONAL THERAPY ASST Work Phone: [facility] 10-03-2022 10:49-0400 Diastolic blood pressure 78 mm[Hg] CERT OCCUPATIONAL THERAPY ASST-C Toan Galileo CERT OCCUPATIONAL THERAPY ASST Work Phone: [facility] 10-03-2022 10:49-0400 Systolic blood pressure 132 mm[Hg] CERT OCCUPATIONAL THERAPY ASST-C Toan Galileo CERT OCCUPATIONAL THERAPY ASST Work Phone: [facility] 04-15-2022 12:41-0500 Body height 158.8 cm Celia Wormald PA-C Work Phone: [facility] 04-15-2022 12:41-0500 Body temperature 99.39 [degF] Celia Wormald PA-C Work Phone: [facility] 04-15-2022 12:41-0500 Body weight 95.71 kg Celia Wormald PA-C Work Phone: [facility] 04-15-2022 12:41-0500 Diastolic blood pressure 78 mm[Hg] Celia Wormald PA-C Work Phone: [facility] 04-15-2022 12:41-0500 Heart rate 87 /min Celia Wormald PA-C Work Phone: [facility] 04-15-2022 12:41-0500 SaO2% (BldA) [Mass fraction] 96 % Celia Wormald PA-C Work Phone: [facility] 04-15-2022 12:41-0500 Systolic blood pressure 147 mm[Hg] Celia Wormald PA-C Work Phone: [facility] 02-07-2022 13:17-0500 Body height 158.8 cm Toan Galileo BINGO CHECKER.AUTOMATION SALES MANAGER Work Phone: [facility] 02-07-2022 13:17-0500 Body temperature 98.01 [degF] Toan Galileo BINGO CHECKER.AUTOMATION SALES MANAGER Work Phone: [facility] 02-07-2022 13:17-0500 Body weight 97.52 kg Toan Galileo BINGO CHECKER.AUTOMATION SALES MANAGER Work Phone: [facility] 02-07-2022 13:17-0500 Diastolic blood pressure 78 mm[Hg] Toan Galileo BINGO CHECKER.AUTOMATION SALES MANAGER Work Phone: [facility] 02-07-2022 13:17-0500 Heart rate 78 /min Toan Galileo BINGO CHECKER.AUTOMATION SALES MANAGER Work Phone: [facility] 02-07-2022 13:17-0500 Respiratory rate 18 /min Toan Galileo BINGO CHECKER.AUTOMATION SALES MANAGER Work Phone: [facility] 02-07-2022 13:17-0500 SaO2% (BldA) [Mass fraction] 99 % Toan Galileo BINGO CHECKER.AUTOMATION SALES MANAGER Work Phone: [facility] 02-07-2022 13:17-0500 Systolic blood pressure 122 mm[Hg] Toan Galileo BINGO CHECKER.AUTOMATION SALES MANAGER Work Phone: [facility] 01-18-2022 14:31-0400 Body height 158.8 cm Timmy Ball BINGO CHECKER.AUTOMATION SALES MANAGER Work Phone: [facility] 01-18-2022 14:31-0400 Body temperature 97.2 [degF] Timmy Ball BINGO CHECKER.AUTOMATION SALES MANAGER Work Phone: [facility] 01-18-2022 14:31-0400 Body weight 96.62 kg Timmy Ball BINGO CHECKER.AUTOMATION SALES MANAGER Work Phone: [facility] 01-18-2022 14:31-0400 Diastolic blood pressure 78 mm[Hg] Timmy Ball BINGO CHECKER.AUTOMATION SALES MANAGER Work Phone: [facility] 01-18-2022 14:31-0400 Heart rate 86 /min Itmmy Ball BINGO CHECKER.AUTOMATION SALES MANAGER Work Phone: [facility] 01-18-2022 14:31-0400 Respiratory rate 16 /min Timmy Ball BINGO CHECKER.AUTOMATION SALES MANAGER Work Phone: [facility] 01-18-2022 14:31-0400 SaO2% (BldA) [Mass fraction] 97 % Timmy Ball BINGO CHECKER.AUTOMATION SALES MANAGER Work Phone: [facility] 01-18-2022 14:31-0400 Systolic blood pressure 147 mm[Hg] Timmy Ball BINGO CHECKER.AUTOMATION SALES MANAGER Work Phone: [facility] 12-15-2021 15:04-0400 Body temperature 98.8 [degF] David Lopez DPM Work Phone: [facility] 12-01-2021 14:14-0400 Body temperature 98.8 [degF] David Lopez DPM Work Phone: [facility] 10-02-2021 10:14-0400 Body height 157.48 cm CERT OCCUPATIONAL THERAPY ASST-C Toan Gurrola CERT OCCUPATIONAL THERAPY ASST Work Phone: [facility] Work Phone: 10-02-2021 10:14-0400 Body mass index (BMI) [Ratio] 38.2 kg/m2 CERT OCCUPATIONAL THERAPY ASST-C Toan Gurrola CERT OCCUPATIONAL THERAPY ASST Work Phone: [facility] Work Phone: 10-02-2021 10:14-0400 Body weight 94.97 kg CERT OCCUPATIONAL THERAPY ASST-C Toan Gurrola CERT OCCUPATIONAL THERAPY ASST Work Phone: [facility] Work Phone: 10-02-2021 10:14-0400 Diastolic blood pressure 76 mm[Hg] CERT OCCUPATIONAL THERAPY ASST-C Toan Gurrola CERT OCCUPATIONAL THERAPY ASST Work Phone: [facility] Work Phone: 10-02-2021 10:14-0400 Systolic blood pressure 138 mm[Hg] CERT OCCUPATIONAL THERAPY ASST-C Toan Gurrola CERT OCCUPATIONAL THERAPY ASST Work Phone: [facility] Work Phone: 09-11-2021 13:41-0400 Body height 158.8 cm Toan Gurrola BINGO CHECKER.AUTOMATION SALES MANAGER Work Phone: [facility] 09-11-2021 13:41-0400 Body temperature 98.2 [degF] Toan Galileo BINGO CHECKER.AUTOMATION SALES MANAGER Work Phone: [facility] 09-11-2021 13:41-0400 Body weight 95.25 kg Toan Atkinsel BINGO CHECKER.AUTOMATION SALES MANAGER Work Phone: [facility] 09-11-2021 13:41-0400 Diastolic blood pressure 78 mm[Hg] Toan Galileo BINGO CHECKER.AUTOMATION SALES MANAGER Work Phone: [facility] 09-11-2021 13:41-0400 Heart rate 74 /min Toan Galileo BINGO CHECKER.AUTOMATION SALES MANAGER Work Phone: [facility] 09-11-2021 13:41-0400 Respiratory rate 18 /min Toan Galileo BINGO CHECKER.AUTOMATION SALES MANAGER Work Phone: [facility] 09-11-2021 13:41-0400 SaO2% (BldA) [Mass fraction] 97 % Toan Galileo BINGO CHECKER.AUTOMATION SALES MANAGER Work Phone: [facility] 09-11-2021 13:41-0400 Systolic blood pressure 122 mm[Hg] Toan Galileo BINGO CHECKER.AUTOMATION SALES MANAGER Work Phone: [facility] 07-19-2021 15:58-0400 Body temperature 97.5 [degF] Marsha Slabaugh PA-C Work Phone: [facility] 07-19-2021 15:58-0400 Body weight 96.66 kg Marsha Slabaugh PA-C Work Phone: [facility] 07-19-2021 15:58-0400 Diastolic blood pressure 83 mm[Hg] Marsha Slabaugh PA-C Work Phone: [facility] 07-19-2021 15:58-0400 Heart rate 96 /min Marsha Slabaugh PA-C Work Phone: [facility] 07-19-2021 15:58-0400 Respiratory rate 12 /min Marsha Slabaugh PA-C Work Phone: [facility] 07-19-2021 15:58-0400 SaO2% (BldA) [Mass fraction] 97 % Marsha Slabaugh PA-C Work Phone: [facility] 07-19-2021 15:58-0400 Systolic blood pressure 140 mm[Hg] Marsha Slabaugh PA-C Work Phone: [facility] 07-12-2021 14:17-0400 Body height 158.8 cm Toan Galileo BINGO CHECKER.AUTOMATION SALES MANAGER Work Phone: [facility] 07-12-2021 14:17-0400 Body temperature 98.29 [degF] Toan Atkinsel BINGO CHECKER.AUTOMATION SALES MANAGER Work Phone: [facility] 07-12-2021 14:17-0400 Body weight 94.35 kg Toan Gurrola BINGO CHECKER.AUTOMATION SALES MANAGER Work Phone: [facility] 07-12-2021 14:17-0400 Diastolic blood pressure 62 mm[Hg] Toan Galileo BINGO CHECKER.AUTOMATION SALES MANAGER Work Phone: [facility] 07-12-2021 14:17-0400 Heart rate 77 /min Toan Galileo BINGO CHECKER.AUTOMATION SALES MANAGER Work Phone: [facility] 07-12-2021 14:17-0400 Respiratory rate 18 /min Toan Gurrola BINGO CHECKER.AUTOMATION SALES MANAGER Work Phone: [facility] 07-12-2021 14:17-0400 SaO2% (BldA) [Mass fraction] 98 % Toan Gurrola BINGO CHECKER.AUTOMATION SALES MANAGER Work Phone: [facility] 07-12-2021 14:17-0400 Systolic blood pressure 122 mm[Hg] Toan Gurrola BINGO CHECKER.AUTOMATION SALES MANAGER Work Phone: [facility] Encounters Encounter Date Encounter Type Care Provider Facility Start: 11-27-2024 ambulatory [facility] Facility :[facility] Start: 11-13-2024 End: 11-13-2024 Office outpatient visit 25 minutes Essie Gee APRN.AUTOMATION SALES MANAGER Work Phone: [facility] Comment on above: Itchy eyes (Primary Dx); Swelling of left eyelid, unspecified eyelid Start: 11-13-2024 End: 11-13-2024 ambulatory [facility] Facility:[facility] Start: 09-27-2024 End: 09-27-2024 Emergency department patient visit TERESITA MATUTE Facility:[facility] Start: 08-26-2024 End: 08-26-2024 ambulatory Saritha Jaramillo PT Work Phone: [facility] Comment on above: Posture abnormality (Primary Dx); Dizziness; Benign paroxysmal positional vertigo of right ear Start: 08-19-2024 End: 08-19-2024 ambulatory Jean Marie Luis Angel ACIDITY TESTER [facility] Comment on above: Posture abnormality (Primary Dx); Dizziness; Benign paroxysmal positional vertigo of right ear Start: 08-12-2024 End: 08-12-2024 ambulatory REGAN VARGASIGHAM Facility:[facility] Start: 08-03-2024 End: 08-03-2024 ambulatory Peter Suadshae ACIDITY TESTER Work Phone: [facility] Comment on above: Posture abnormality (Primary Dx) Start: 07-27-2024 End: 07-27-2024 ambulatory Melba Robles RN [facility] Start: 07-27-2024 End: 07-27-2024 Patient encounter procedure Melba Robles RN [facility] Start: 07-24-2024 End: 07-24-2024 ambulatory Saritha Jaramillo PT Work Phone: [facility] Comment on above: Dizziness (Primary D x); Benign paroxysmal positional vertigo of right ear Start: 07-23-2024 End: 07-23-2024 Office outpatient visit 15 minutes Timmy Lemus APRN.CNP Work Phone: [facility] Comment on above: Acute cough (Primary Dx); Wheezing; SOB (shortness of breath) Start: 07-23-2024 End: 07-23-2024 ambulatory TOAN M GALILEO Facility:[facility] Start: 07-14-2024 End: 07-14-2024 ambulatory Jean Marie Luis Angel ACIDITY TESTER [facility] Comment on above: Dizziness (Primary D x); Benign paroxysmal positional vertigo of right ear; Posture abnormality Start: 07-10-2024 End: 07-10-2024 ambulatory Saritha Jaramillo PT Work Phone: [facility] Comment on above: Dizziness (Primary D x); Benign paroxysmal positional vertigo of right ear; Posture abnormality Start: 07-02-2024 End: 07-02-2024 ambulatory Saritha Jaramillo PT Work Phone: [facility] Comment on above: Dizziness (Primary D x); Benign paroxysmal positional vertigo of right ear Start: 10-19-2023 End: 02-10-2024 ambulatory Drea Mcgraw RN [facility] Start: 10-19-2023 End: 02-10-2024 Patient encounter procedure Drea Mcgraw RN [facility] Start: 09-28-2023 End: 09-28-2023 Patient encounter procedure Celia Riddle PA-C Work Phone: [facility] Comment on above: Viral URI (Primary D x); Acute cough; Nasal congestion; Myalgias Start: 09-02-2023 ambulatory Cindy Mendieta RN [facility] Start: 09-02-2023 Patient encounter procedure Cindy Mendieta RN [facility] Start: 02-14-2023 ambulatory Desirae Vitale RN [facility] Start: 02-14-2023 Patient encounter procedure Desirae Vitale RN [facility] Start: 02-07-2023 End: 02-07-2023 Subsequent hospital visit by physician [facility] Start: 12-12-2022 ambulatory Rosy Del Valle RN [facility] Start: 12-12-2022 Patient encounter procedure Rosy Del Valle RN [facility] Start: 11-09-2022 End: 11-09-2022 ambulatory CERT OCCUPATIONAL THERAPY ASST-C Toan Gurrola CERT OCCUPATIONAL THERAPY ASST Work Phone: [facility] Work Phone: Start: 11-09-2022 End: 11-09-2022 Patient encounter procedure CERT OCCUPATIONAL THERAPY ASST-Rut Gurrola CERT OCCUPATIONAL THERAPY ASST Work Phone: [facility]-Outpatient Breast Imaging Work Phone: Start: 10-03-2022 End: 10-03-2022 Patient encounter procedure CERT OCCUPATIONAL THERAPY ASST-Rut Gurrola CERT OCCUPATIONAL THERAPY ASST Work Phone: [facility]-Laboratory, Specimen Work Phone: Start: 10-03-2022 End: 10-03-2022 Patient encounter procedure CERT OCCUPATIONAL THERAPY ASST-Rut Gurrola CERT OCCUPATIONAL THERAPY ASST Work Phone: [facility] Work Phone: Start: 04-15-2022 End: 04-15-2022 Patient encounter procedure Celia Riddle PA-C Work Phone: [email or web address] Comment on above: Bacterial sinusitis (Primary Dx); Nasal congestion; Sinus pressure Start: 02-08-2022 Telephone encounter Toan Gurrola APRN.AUTOMATION SALES MANAGER Work Phone: [facility] Comment on above: Results Start: 02-07-2022 Telephone encounter Toan Gurrola APRN.AUTOMATION SALES MANAGER Work Phone: [facility] Comment on above: Results Start: 02-07-2022 End: 02-07-2022 Patient encounter procedure Toan Gurrola APRN.AUTOMATION SALES MANAGER Work Phone: [facility] Comment on above: Fatigue, unspecified type (Primary Dx); Environmental allergies; Mild intermittent asthma with acute exacerbation Start: 01-31-2022 ambulatory Toan regalado APRN.AUTOMATION SALES MANAGER Work Phone: [facility] Comment on above: ER F/U (/) Start: 01-26-2022 Telephone encounter Toan Gurrola APRN.AUTOMATION SALES MANAGER Work Phone: [facility] Comment on above: Patient Question Start: 01-23-2022 End: 01-23-2022 Subsequent hospital visit by physician [facility] Comment on above: Vitamin D deficiency , unspecified [E55.9] Start: 01-22-2022 Telephone encounter Essie Dez Work Phone: [email or web address] Comment on above: Results Start: 01-18-2022 End: 01-18-2022 Office outpatient visit 15 minutes Timmy Lemus APRN.AUTOMATION SALES MANAGER Work Phone: [email or web address] Comment on above: Acute cough (Primary Dx); SOB (shortness of breath); Viral URI Start: 12-15-2021 End: 12-15-2021 Patient encounter procedure David Lopez DPM Work Phone: [facility] Comment on above: Plantar fasciitis (P rimary Dx); Pain in right foot; Difficulty walking Start: 12-05-2021 Telephone encounter Toan Gurrola APRN.CNP Work Phone: [facility] Comment on above: Results Start: 12-01-2021 End: 12-01-2021 Patient encounter procedure David Lopez DPM Work Phone: [facility] Comment on above: Plantar fasciitis (P rimary Dx); Pain in right foot; Difficulty walking Start: 11-30-2021 End: 11-30-2021 Refill Toan Gurrola APRN.AUTOMATION SALES MANAGER Work Phone: [facility] Comment on above: Refill Request Right foot pain [[id number] .[id number]] Start: 11-08-2021 End: 11-08-2021 ambulatory CERT OCCUPATIONAL THERAPY ASST-C Toan Gurrola NP Work Phone: [facility] Work Phone: Start: 11-08-2021 End: 11-08-2021 Patient encounter procedure APOLINAR-Rut Gurrola NP Work [facility]: [facility] [facility] Start: 10-12-2021 Telephone encounter Toan Gurrola APRN.AUTOMATION SALES MANAGER Work Phone: [facility] Comment on above: Patient Question Start: 10-02-2021 End: 10-02-2021 Patient encounter procedure APOLINAR-Rut Gurrola NP Work Phone: [facility] [place] Start: 09-18-2021 Telephone encounter Toan Gurrola APRN.CNP Work Phone: [facility] Comment on above: Results Start: 09-11-2021 End: 09-11-2021 Patient encounter procedure Toan Gurrola APRN.AUTOMATION SALES MANAGER Work Phone: [facility] Comment on above: Wellness examination (Primary Dx); Mild intermittent asthma with acute exacerbation; Benign essential hypertension; Environmental allergies; Depression, unspecified depression type; Lateral epicondylitis of left elbow; Encounter for screening mammogram for malignant neoplasm of breast; Screening for lipid disorders; Screening for thyroid disorder; Need for shingles vaccine Start: 09-11-2021 End: 09-11-2021 Patient encounter status Toan Gurrola APRN.AUTOMATION SALES MANAGER Work Phone: [facility] Start: 08-03-2021 Refill Toan regalado APRN.AUTOMATION SALES MANAGER Work Phone: [facility] Comment on above: Refill Request Start: 07-19-2021 End: 07-19-2021 Patient encounter procedure Marsha Perez PA-C Work Phone: [facility] Comment on above: Acute non-recurrent maxillary sinusitis (Primary Dx); Acute effusion of right ear; Cough Start: 07-19-2021 End: 07-19-2021 Subsequent hospital visit by physician [facility] Comment on above: Mild intermittent as thma with acute exacerbation [J45.21] Start: 07-12-2021 End: 07-12-2021 Patient encounter procedure Toan Gurrola APRN.AUTOMATION SALES MANAGER Work Phone: [facility] Comment on above: Rhinosinusitis (Prim jana Dx); Mild intermittent asthma with acute exacerbation Start: 05-15-2018 End: 05-15-2018 Emergency department patient visit [facility] Start: 05-12-2018 Patient encounter procedure Moises [facility] Start: 05-02-2018 Patient encounter procedure Moises [facility] Start: 04-14-2018 Patient encounter procedure Giselle Cooper [facility] Procedures Date Procedure Procedure Detail Performing Clinician Start: 11-09-2022 Screening mammography N PKlaudia Gurrola CERT OCCUPATIONAL THERAPY ASST Work Phone: Start: 11-08-2021 Screening mammography N Vivian Gurrola CERT OCCUPATIONAL THERAPY ASST Work Phone: Start: 09-16-2021 Lipid 1996 panel - S aissatou or Plasma [facility] Start: 07-19-2021 Radiologic exam ches t 2 views Toan Gurrola BINGO CHECKER.MELISSA Work Phone: Start: 11-05-2019 Mammography Toan mark BINGO CHECKER.MELISSA Work Phone: Start: 01-08-2019 Colonoscopy Toan mark BINGO CHECKER.MELISSA Work Phone: Plan of Treatment Date Care Activity Detail Author Start: 04-03-2031 DTaP/Tdap/Td Vaccine s (3 - Td or Tdap) DTaP/Tdap/Td Vaccines (3 - Td or Tdap) [facility] Start: 04-03-2031 Urine microalbumin profile [facility] Start: 10-09-2027 HPV Testing HPV Testing [facility] Start: 10-09-2027 Pap Testing Pap Testing [facility] Start: 10-09-2027 Screening for malign ant neoplasm of cervix Cervical Cancer Screening [facility] Start: 09-16-2026 Lipid 1996 panel - S aissatou or Plasma Lipid Screening [facility] Start: 09-16-2026 Lipid panel Lipid Screening [facility] Start: 09-16-2026 LIPID SCREEN LIPID SCREEN [facility] Start: 09-01-2025 LIPID SCREEN LIPID SCREEN [facility] Start: 02-07-2025 DIABETES SCREEN DIABETES SCREEN [facility] Start: 02-07-2025 Diabetes Screening Diabetes Screenin g [facility] Start: 11-23-2024 Influenza vaccination [facility] Start: 09-16-2024 DIABETES SCREEN DIABETES SCREEN [facility] Start: 08-26-2024 End: 08-26-2024 ambulatory 08/26/2024 1:30 PM EDT OT/PT/Speech Visit [facility] [address] [place] [address] Saritha Jaramillo, PT [address] [facility] [place], [place] [phone] BPPV [facility] Comment on above: BPPV Start: 08-20-2024 End: 08-20-2024 Admission to same day surgery center 08/20/2024 10:30 AM EDT - 08/20/2024 11:00 AM EDT Surgery [facility] [address] [place] [id number] Regan Hill, DO [address] [place] [address] RIGHT MYRINGOTOMY WITH U-TUBE [29263 (CPT )] [facility] Comment on above: RIGHT MYRINGOTOMY WI TH U-TUBE [72510 (CPT )] Start: 08-20-2024 End: 08-20-2024 Nasal endoscopy diagnostic uni/bi spx ENDOSCOPY, NOSE, DIAGNOSTIC Chronic eustachian salpingitis of right ear 08/20/2024 10:30 AM EDT [facility] Operating Room Start: 08-20-2024 Subsequent hospital visit by physician 08/20/2024 10:30 AM EDT Hospital Encounter [facility] [address] [place] [id number] Regan Hill, DO [address] [place] [address] [facility] Start: 08-20-2024 End: 08-20-2024 Tympanostomy general anesthesia INSERTION, TYMPANOSTOMY TUBE Chronic eustachian salpingitis of right ear 08/20/2024 10:30 AM EDT [facility] Operating Room Start: 08-12-2024 End: 08-12-2024 ambulatory 08/12/2024 2:15 PM EDT OT/PT/Speech Visit [facility] [address] [place] [address] Saritha Jaramillo, PT [address] [place], [place] [phone] BPPV [facility] Comment on above: BPPV Start: 08-03-2024 End: 08-03-2024 ambulatory 08/03/2024 3:00 PM EDT OT/PT/Speech Visit [facility] [address] [place] [address] Peter Gee, ACIDITY TESTER [address] [place], [place] [phone] BPPV [facility] Comment on above: BPPV Start: 07-24-2024 End: 07-24-2024 ambulatory 07/24/2024 3:00 PM EDT OT/PT/Speech Visit [facility] [address] [place] [address] Saritha Jaramillo, PT [address] [place] [address] BPPV [facility] Comment on above: BPPV Start: 07-14-2024 End: 07-14-2024 ambulatory 07/14/2024 2:15 PM EDT OT/PT/Speech Visit [facility] [address] [place] [address] Jean Marie Plasencia, ACIDITY TESTER BPPV [facility] Comment on above: BPPV Start: 07-09-2024 End: 07-09-2024 ambulatory 07/09/2024 1:00 PM EDT OT/PT/Speech Visit [facility] [address] [place] [address] Socorro Cooper, PT BPP[facility] Comment on above: BPPV Start: 2024 RSV Immunization for Adults (1 - Risk 60-74 years 1-dose series) RSV Immunization for Adults (1 - Risk 60-74 years 1-dose series) [facility] Start: 2024 RSV Vaccine (1 - Ris k 60-74 years 1-dose series) RSV Vaccine (1 - Risk 60-74 years 1-dose series) [facility] Start: 01-09-2024 Colonoscopy COLONOSCOPY [facility] Start: 01-09-2024 COLORECTAL CANCER SCREENING COLORECTAL CANCER SCREENING [facility] Start: 01-09-2024 Screening for malign ant neoplasm of colon [facility] Start: 11-24-2023 COVID-19 Vaccine ( season) COVID-19 Vaccine () [facility] Start: 11-24-2023 Covid-19 Vaccine ( season) Covid-19 Vaccine () [facility] Start: 11-24-2023 Influenza vaccination Influenza Vacc ine (#1) [facility] Start: 06-02-2023 DIABETES SCREEN DIABETES SCREEN [facility] Start: 02-07-2023 ANNUAL PCP TEAM CRIMINAL ANALYST REBECCA DISEASE VISIT ANNUAL PCP TEAM CHRONIC DISEASE VISIT [facility] Start: 02-07-2023 BP CONTROLLED (<130/80) BP CONTROLLE D (<130/80) [facility] Start: 11-30-2022 ANNUAL PCP TEAM CRIMINAL ANALYST REBECCA DISEASE VISIT ANNUAL PCP TEAM CHRONIC DISEASE VISIT [facility] Start: 11-23-2022 Covid-19 Vaccine () Covid-19 Vaccine () [facility] Start: 11-23-2022 Influenza vaccination Influenza Vacc ine (#1) [facility] Start: 09-11-2022 ANNUAL PCP TEAM CRIMINAL ANALYST REBECCA DISEASE VISIT ANNUAL PCP TEAM CHRONIC DISEASE VISIT [facility] Start: 09-11-2022 BP CONTROLLED (<130/80) BP CONTROLLE D (<130/80) [facility] Start: 09-11-2022 COVID-19 VACCINE (4 - Booster for Pfizer series) COVID-19 VACCINE (4 - Booster for Pfizer series) [facility] Comment on above: Postponed from 08/06 (Declined at this time) Postponed from 06/03 (Declined at this time) Start: 07-12-2022 ANNUAL PCP TEAM CRIMINAL ANALYST REBECCA DISEASE VISIT ANNUAL PCP TEAM CHRONIC DISEASE VISIT [facility] Start: 07-12-2022 BP CONTROLLED (<130/80) BP CONTROLLE D (<130/80) [facility] Start: 02-07-2022 End: 04-09-2022 Cobalamin (Vitamin B12) [Mass/volume] in Serum or Plasma [facility] Work Phone: Comment on above: Expected: 02/07/2022 , Expires: 04/09/2022 Start: 01-18-2022 End: 03-20-2022 ROUTINE FLU A/B + RSV ROUTINE FLU A/B + RSV Lab Routine Acute cough SOB (shortness of breath) Viral URI Expected: 01/18/2022, Expires: 03/20/2022 [facility] Work Phone: Comment on above: Expected: 01/18/2022 , Expires: 03/20/2022 Start: 11-23-2021 Influenza vaccination INFLUENZA (#1) [facility] Start: 09-11-2021 End: 11-11-2021 CBC panel - Blood by Automated count CBC Lab Routine Benign essential hypertension Expected: 09/11/2021, Expires: 11/11/2021 [facility] Work Phone: Comment on above: Expected: 09/11/2021 , Expires: 11/11/2021 Start: 09-11-2021 End: 11-11-2021 Comprehensive metabolic 2000 panel - Serum or Plasma COMP METABOLIC PANEL Lab Routine Benign essential hypertension Expected: 09/11/2021, Expires: 11/11/2021 [facility] Work Phone: Comment on above: Expected: 09/11/2021 , Expires: 11/11/2021 Start: 09-11-2021 End: 11-11-2021 Lipid 1996 panel - Serum or Plasma LIPID PANEL BASIC Lab Routine Screening for lipid disorders Expected: 09/11/2021, Expires: 11/11/2021 [facility] Work Phone: Comment on above: Expected: 09/11/2021 , Expires: 11/11/2021 Start: 09-11-2021 End: 11-11-2021 Thyrotropin [Units/volume] in Serum or Plasma TSH BLD Lab Routine Screening for thyroid disorder Expected: 09/11/2021, Expires: 11/11/2021 [facility] Work Phone: Comment on above: Expected: 09/11/2021 , Expires: 11/11/2021 Start: 08-06-2021 COVID-19 VACCINE (4 - Booster for Pfizer series) COVID-19 VACCINE (4 - Booster for Pfizer series) [facility] Start: 12-08-2020 HPV TESTING HPV TESTING [facility] Start: 12-08-2020 PAP TESTING PAP TESTING [facility] Start: 11-04-2020 Mammography [facility] Start: 11-04-2020 Screening for malign ant neoplasm of breast Mammogram Screening [facility] Start: 10-30-2019 BP CONTROLLED (<130/80) BP CONTROLLE D (<130/80) [facility] Start: 2014 Pneumococcal Vaccine : 50+ (1 of 1 - PCV) Pneumococcal Vaccine: 50+ (1 of 1 - PCV) [facility] Start: 2014 SHINGRIX VACCINE (1 of 2) SHINGRIX VACCINE (1 of 2) [facility] Start: 2014 Zoster Vaccines (1 of 2) Zoste r Vaccines (1 of 2) [facility] Start: 01-13-2010 MMR Vaccines (1 of 1 - Standard series) MMR Vaccines (1 of 1 - Standard series) [facility] Start: 2009 COLOGUARD (FIT-DNA) COLOGUARD (FIT-D NA) [facility] Start: [address] COLONOGRAPHY [facility] Start: 2009 FECAL OCCULT BLOOD FECAL OCCULT BLOO D [facility] Start: 2009 Screening for malign ant neoplasm of colon [facility] Start: 2009 SIGMOIDOSCOPY SIGMOIDOSCOPY [facility] Start: 2004 Screening for malign ant neoplasm of breast Mammogram [facility] Start: 1994 Screening for malign ant neoplasm of cervix [facility] Start: 1985 Screening for malign ant neoplasm of cervix Pap Smear [facility] Start: 1983 Pneumococcal Vaccine : 50+ Years (1 of 2 - PCV) Pneumococcal Vaccine: 50+ Years (1 of 2 - PCV) [facility] Start: 1982 Anxiety Screening Anxiety Screening [facility] Start: 1982 Hepatitis C screening Hepatitis C Sc reening [facility] Start: 1982 SPIROMETRY SPIROMETRY [facility] Start: 1976 Depression Monitoring Depression Mon itoring [facility] Start: 1970 PNEUMOCOCCAL (1 - PCV) PNEUMOCOCCAL (1 - PCV) [facility] Start: 1970 Pneumococcal vaccination Pneum ococcal Vaccine (1 - PCV) [facility] Start: 1964 HEPATITIS B (1 of 3 - 3-dose series) HEPATITIS B (1 of 3 - 3-dose series) [facility] Start: 1964 Hepatitis B Vaccine (1 of 3 - 3-dose series) Hepatitis B Vaccine (1 of 3 - 3-dose series) [facility] Start: 1964 HIV screening HIV Screening [facility] Start: 1964 Lipid panel Lipid Panel [facility] Start: 1964 Screening for malign ant neoplasm of colon [facility] COVID & INFLUENZA A/ B & RSV NAAT, ROUTINE COVID & INFLUENZA A/B & RSV NAAT, ROUTINE Microbiology Routine Acute cough Nasal congestion Myalgias Ordered: 09/28/2023 [facility] Work Phone: Comment on above: Ordered: 09/28/2023 Influenza virus A an d B RNA and SARS-CoV-2 (COVID-19) N gene panel - Respiratory specimen by BORA with probe detection COVID WITH FLUA+B, ROUTINE Microbiology Today Acute non-recurrent maxillary sinusitis Ordered: 07/19/2021 [facility] Work Phone: Comment on above: Ordered: 07/19/2021 Influenza virus A an d B RNA and SARS-CoV-2 (COVID-19) N gene panel - Respiratory specimen by BORA with probe detection COVID WITH FLUA+B, ROUTINE Microbiology Routine Acute cough SOB (shortness of breath) Viral URI Ordered: 01/18/2022 [facility] Work Phone: Comment on above: Ordered: 01/18/2022 Influenza virus A an d B RNA and SARS-CoV-2 (COVID-19) N gene panel - Respiratory specimen by BORA with probe detection COVID WITH FLUA+B, ROUTINE Microbiology Routine Nasal congestion Sinus pressure Ordered: 04/15/2022 [facility] Work Phone: Comment on above: Ordered: 04/15/2022 Radiologic exam ches t 2 views XR CHEST 2V FRONTAL/LAT Radiology Routine Mild intermittent asthma with acute exacerbation 07/19/2021 3:22 PM EDT [facility] Work Phone: End: 10-11-2022 Screening mammography bi 2-view breast inc cad SAFIA SCREENING Radiology Routine Encounter for screening mammogram for malignant neoplasm of breast 1 Occurrences starting 09/11/2021 until 10/11/2022 [facility] Work Phone: Comment on above: 1 Occurrences starti ng 09/11/2021 until 10/11/2022 End: 11-30-2021 XR FOOT GENERAL 3V AP/LAT/OBL RIGHT [facility] Work Phone: Comment on above: 1 Occurrences starti ng 11/30/2021 until 11/30/2021 [facility] [place] Immunizations Immunization Date Immunization Notes Care Provider Alton diaz 03-03-2024 influenza virus vacc ine, unspecified formulation Peter Suadshae ACIDITY TESTER Work Phone: [facility] 09-11-2021 zoster RZV vaccine (SHINGRIX) 50 mcg/0.5 mL injection Toan Galileo BINGO CHECKER.AUTOMATION SALES MANAGER Work Phone: [facility] Work Phone: Comment on above: Inject 0.5 mL intram uscularly one time only for 1 dose. Repeat in 3-6 months 04-03-2021 tetanus toxoid, redu salvador diphtheria toxoid, and acellular pertussis vaccine, adsorbed Toan Galileo BINGO CHECKER.AUTOMATION SALES MANAGER Work Phone: [facility] 03-14-2021 influenza, injectabl e, quadrivalent, contains preservative Toan Galileo BINGO CHECKER.AUTOMATION SALES MANAGER Work Phone: [facility] 03-14-2021 influenza virus vacc ine, unspecified formulation Xr Hosp [facility] 12-22-2019 influenza, injectabl e, quadrivalent, preservative free Toan Galileo BINGO CHECKER.AUTOMATION SALES MANAGER Work Phone: [facility] 12-23-2018 Influenza, injectabl e, Madin Saltillo Canine Kidney, preservative free, quadrivalent Toan Galileo BINGO CHECKER.AUTOMATION SALES MANAGER Work Phone: [facility] 12-31-2016 influenza, injectabl e, quadrivalent, preservative free Toan Galileo BINGO CHECKER.AUTOMATION SALES MANAGER Work Phone: [facility] 01-17-2012 influenza, seasonal, injectable Toan Galileo BINGO CHECKER.AUTOMATION SALES MANAGER Work Phone: [facility] 12-16-2009 zoster vaccine, live Charlen e Galileo BINGO CHECKER.AUTOMATION SALES MANAGER Work Phone: [facility] 09-19-2004 tetanus toxoid, redu salvador diphtheria toxoid, and acellular pertussis vaccine, adsorbed Toan Gurrola APRN.AUTOMATION SALES MANAGER Work Phone: [facility] Payers Date Payer Category Payer Self-pay [id number] 2018 Private Health Insurance MMO SUP ERMED PPO [id number] 2018 Unknown 2018 Unknown MMO MMO SUPER[employer] PLUS [id number] 2018-Present [phone] [place] [phone] PPO [id number] 2018 Unknown [id number] 2017 Commercial Managed C are - HMO MMO SUPERMED [id number] 1964 Unknown [id number] 1964 Unknown [id number] 1964 Unknown [id number] Unknown [id number] Social History Date Type Detail Facility Start: 01-11-2016 End: 04-15-2022 Tobacco smoking status NHIS Ex-smoker [facility] End: 10-09-1992 History of tobacco use Current smoker [facility] Start: 01-11-2016 End: 04-15-2022 Tobacco use and exposure Smokeless tobacco non-user [facility] Start: 07-12-2021 End: 09-27-2024 Alcohol intake Current drinker of alcohol (finding) [facility] Start: 07-20-2010 History SDOH Alcohol Comment social [facility] Start: 1965 Sex Assigned At Not on file [facility] Start: 07-02-2021 End: 02-07-2022 Exposure to SARS-CoV-2 (event) Not sure [facility] Start: 10-02-2021 End: 10-03-2022 Tobacco smoking status RIIS Unknown if ever smoked [facility] Start: 1965 Sex Assigned At Female W [facility] End: 10-09-1992 History of tobacco use Cigarette Smoker [facility] Start: 04-15-2022 End: 07-02-2024 History of Social function [facility] Start: 04-15-2022 End: 07-02-2024 Tobacco use panel [facility] Start: 02-24-2012 Adult Depression Screening Assessment 0 [facility] Start: 10-23-2021 Sex Female (finding) [facility] Functional Status Date Assessment Result Facility 08-31-2014 Are you deaf, or do you have serious difficulty hearing No 08/31/2014 3:09 PM EDT Miriam Dumont MA No [facility] 08-31-2014 Are you blind, or do you have serious difficulty seeing, even when wearing glasses No 08/31/2014 3:09 PM EDT Miriam Dumont MA No [facility] 08-31-2014 Do you have serious difficulty walking or climbing stairs Yes 08/31/2014 3:09 PM EDT Miriam Dumont MA Yes [facility] 08-31-2014 Do you have difficul ty dressing or bathing No 08/31/2014 3:09 PM EDT Miriam Dumont MA No [facility] 08-31-2014 Because of a physica l, mental, or emotional condition, do you have difficulty doing errands alone such as visiting a physician's office or shopping No 08/31/2014 3:09 PM EDT Miriam Dumont MA No [facility] Mental Status Date Assessment Result Facility 08-31-2014 Because of a physica l, mental, or emotional condition, do you have serious difficulty concentrating, remembering, or making decisions No 08/31/2014 3:09 PM EDT Miriam Dumont MA No [facility] Clinical Notes 07-12-2021 to 11-13-2024 Essie Gee APRN.AUTOMATION SALES MANAGER - 11/13/2024 10:45 AM EDTPatient InstructionsSaritha Jaramillo, PT - 08/26/2024 2:10 PM EDJean Marie Ying, ACIDITY TESTER - 08/19/2024 2:13 PM EDTPatient InstructionsPatient Instructions Note Date & Type Note Facility 11-13-2024 Note HNO ID: [id number] Author: ESSIE GEE APRN.AUTOMATION SALES MANAGER Service: ? Author Type: Nurse Practitioner Type: Progress Notes Filed: 11/13/2024 11:06 Note Text: PATIENT NAME: Deborah Lugo DATE OF : 1965 TODAYS' DATE: 11/13/2024 Recording using [employer] software for draft documentation of the visit was discussed with the patient/authorized outside sales representative insurance; all questions welcomed and answered. Patient/authorized outside sales representative insurance agreed to proceed Subjective: The patient is a 59-year-old female with a history of allergies, presenting with left eye swelling and itching. History of Present Illness: Left Eye Swelling and Itching: - Onset of symptoms a few days ago. - Noted significant swelling this morning, which has since decreased. - Clear discharge from the eye; denies thick, goopy discharge or crusting. - Denies photophobia, headaches, or dizziness. - Denies recent contact with individuals with conjunctivitis. - Using Opcon-A eye drops; has not used Pataday recently. - Takes Zyrtec daily and receives allergy shots, with the next dose due on Saturday. - Unable to wear contact lenses due to chronic dry eyes from allergies. Review of Systems: Eyes: (+) itchy eyes, (+) left periorbital swelling, (+) watery ocular discharge, (+) dry eyes, (-) crusting, (-) thick purulent ocular discharge, (-) photophobia, (-) pain with eye movement Ears/Nose/Mouth/Throat: (+) nasal congestion Neurological: (-) headache, (-) dizziness Allergies: Allergies: Kiara Inhibitors Other: See Comments Comment: Facial swelling Adhesive Unknown Adhesive Tape (Imani* Rash Latex Unknown Lisinopril Unknown Seasonal Allergies Intolerance Sulfa (Sulfonamide * Hives Past Medical History: PAST MEDICAL HISTORY Diagnosis Date Acute sinusitis - Resolved Allergic rhinitis Benign essential hypertension Breast lump - Lt. '98; R '05 Cobalamin deficiency Depression Hyperlipidemia Psoriatic arthritis (HCC) Seasonal allergies Transfusion history PPH with first delivery Urticaria Past Surgical History: PAST SURGICAL HISTORY Procedure Laterality Date BREAST BIOPSY R benign LAPAROSCOPY DIAGNOSTIC with PAMELA AND TL PAST SURGICAL HISTORY OF Left Sebaceous cyst surgery - L breast PAST SURGICAL HISTORY OF 1997 Tubal ligation PAST SURGICAL HISTORY OF Laparotomy, exploration- pelvic cyst and adhesions; Dr. Rahman SKIN LESION BIOPSY left chest wall lipoma Family History: FAMILY HISTORY Problem Relation Age of Onset other (HTN) Mother other (DM2) Mother other (M I) Mother 50 Cancer Father leukemia other (HTN) Father other (DM2) Father other (MDS) Father Ovarian cancer Paternal Grandmother other (Diabetes mellitus) Other colon/prostate CA other (Heart disease) Other Hypertension Other other (M I) Paternal Grandfather Tobacco History: Tobacco Use: Quit 10/09/1992. Types: Cigarettes Medications: Current Outpatient Medications Medication Sig Dispense Refill Olopatadine (PATADAY ONCE DAILY RELIEF) 0.2 % drop Use 1 drop in both eyes once daily. 5 mL 0 predniSONE (DELTASONE) 20 mg tablet Take 1 tablet by mouth once daily for 3 days. 3 tablet 0 tobramycin (TOBREX) 0.3 % ophthalmic solution Use 1-2 drops in the left eye four times daily for 7 days. 5 mL 0 ipratropium-albuterol (DUONEB) 0.5 mg-3 mg(2.5 mg base)/3 mL nebu Inhale 3 mL as instructed every 4 hours as needed for wheezing/shortness of breath. 30 each 0 albuterol HFA (PROVENTIL HFA, VENTOLIN HFA) 90 mcg/actuation inhaler Inhale 2 puffs as instructed every 4 hours as needed for wheezing/shortness of breath. 18 g 0 azelastine 0.1% nasal spray Use 2 sprays in each nostril once daily. cetirizine (ZYRTEC) 10 mg tablet Take 1 tablet by mouth once daily. Vit B Comp and C-Vit E-FA-Selena-Zn 0.4 mg tab Take 1 tablet by mouth once daily. Promethazine-DM (PHENERGAN-DM) 6.25-15 mg/5 mL syrup Take 3 mL by mouth four times a day as needed. 118 mL 0 benzonatate (TESSALON PERLES) 100 mg capsule Take 1-2 capsules by mouth three times a day as needed for cough. 42 capsule 0 TRINTELLIX 10 mg tablet TAKE 1 TABLET BY MOUTH EVERY DAY 30 tablet 5 losartan (COZAAR) 50 mg tablet TAKE 1 TABLET BY MOUTH EVERY DAY 30 tablet 5 albuterol (PROVENTIL) 5 mg/mL nebu INHALE 0.5 ML INSTRUCTED EVERY 6 HOURS NEEDED FOR WHEEZING/SHORTNESS OF BREATH. 20 mL 0 guaiFENesin (MUCINEX) 600 mg 12 hr tablet Take 1-2 tablets by mouth twice daily. 30 tablet 0 ibuprofen (MOTRIN) 600 mg tablet Take 1 tablet by mouth every 6 hours as needed for pain. 90 tablet 1 fluticasone (FLONASE ALLERGY RELIEF) 50 mcg/actuation nasal spray Use 1 [place] in each nostril once daily. 1 Each 5 tacrolimus (PROTOPIC) 0.1 % ointment APPLY TOPICALLY TO AFFECTED AREA ONCE EVERY MORNING clobetasol (TEMOVATE) 0.05 % ointment APPLY TO AFFECTED AREAS ONCE A DAY AT NIGHT TIME EXTERNALLY 14 DAY(S) albuterol HFA (PROAIR HFA) 90 mcg/actuation inhaler Inhale (more content not included)... [facility] 11-13-2024 History of Present illness Narrative Images from the original note were not included. PATIENT NAME: Deborah Lugo DATE OF : 1965 TODAYS' DATE: 11/13/2024 Recording using [employer] software for draft documentation of the visit was discussed with the patient/authorized outside sales representative insurance; all questions welcomed and answered. Patient/authorized outside sales representative insurance agreed to proceed Subjective: The patient is a 59-year-old female with a history of allergies, presenting with left eye swelling and itching. History of Present Illness: Left Eye Swelling and Itching: - Onset of symptoms a few days ago. - Noted significant swelling this morning, which has since decreased. - Clear discharge from the eye; denies thick, goopy discharge or crusting. - Denies photophobia, headaches, or dizziness. - Denies recent contact with individuals with conjunctivitis. - Using Opcon-A eye drops; has not used Pataday recently. - Takes Zyrtec daily and receives allergy shots, with the next dose due on Saturday. - Unable to wear contact lenses due to chronic dry eyes from allergies. Review of Systems: Eyes: (+) itchy eyes, (+) left periorbital swelling, (+) watery ocular discharge, (+) dry eyes, (-) crusting, (-) thick purulent ocular discharge, (-) photophobia, (-) pain with eye movement Ears/Nose/Mouth/Throat: (+) nasal congestion Neurological: (-) headache, (-) dizziness Allergies: Allergies: Kiara Inhibitors Other: See Comments Comment: Facial swelling Adhesive Unknown Adhesive Tape (Imani* Rash Latex Unknown Lisinopril Unknown Seasonal Allergies Intolerance Sulfa (Sulfonamide * Hives Past Medical History: PAST MEDICAL HISTORY Diagnosis Date Acute sinusitis - Resolved Allergic rhinitis Benign essential hypertension Breast lump - Lt. '98; R '05 Cobalamin deficiency Depression Hyperlipidemia Psoriatic arthritis (HCC) Seasonal allergies Transfusion history PPH with first delivery Urticaria Past Surgical History: PAST SURGICAL HISTORY Procedure Laterality Date BREAST BIOPSY R benign LAPAROSCOPY DIAGNOSTIC with PAMELA & TL PAST SURGICAL HISTORY OF Left Sebaceous cyst surgery - L breast PAST SURGICAL HISTORY OF 1997 Tubal ligation PAST SURGICAL HISTORY OF Laparotomy, exploration- pelvic cyst and adhesions; Dr. Rahman SKIN LESION BIOPSY left chest wall lipoma Family History: FAMILY HISTORY Problem Relation Age of Onset other (HTN) Mother other (DM2) Mother other (M I) Mother 50 Cancer Father leukemia other (HTN) Father other (DM2) Father other (MDS) Father Ovarian cancer Paternal Grandmother other (Diabetes mellitus) Other colon/prostate CA other (Heart disease) Other Hypertension Other other (M I) Paternal Grandfather Tobacco History: Tobacco Use: Quit 10/09/1992. Types: Cigarettes Medications: Current Outpatient Medications Medication Sig Dispense Refill Olopatadine (PATADAY ONCE DAILY RELIEF) 0.2 % drop Use 1 drop in both eyes once daily. 5 mL 0 predniSONE (DELTASONE) 20 mg tablet Take 1 tablet by mouth once daily for 3 days. 3 tablet 0 tobramycin (TOBREX) 0.3 % ophthalmic solution Use 1-2 drops in the left eye four times daily for 7 days. 5 mL 0 ipratropium-albuterol (DUONEB) 0.5 mg-3 mg(2.5 mg base)/3 mL nebu Inhale 3 mL as instructed every 4 hours as needed for wheezing/shortness of breath. 30 each 0 albuterol HFA (PROVENTIL HFA, VENTOLIN HFA) 90 mcg/actuation inhaler Inhale 2 puffs as instructed every 4 hours as needed for wheezing/shortness of breath. 18 g 0 azelastine 0.1% nasal spray Use 2 sprays in each nostril once daily. cetirizine (ZYRTEC) 10 mg tablet Take 1 tablet by mouth once daily. Vit B Comp and C-Vit E-FA-Selena-Zn 0.4 mg tab Take 1 tablet by mouth once daily. Promethazine-DM (PHENERGAN-DM) 6.25-15 mg/5 mL syrup Take 3 mL by mouth four times a day as needed. 118 mL 0 benzonatate (TESSALON PERLES) 100 mg capsule Take 1-2 capsules by mouth three times a day as needed for cough. 42 capsule 0 TRINTELLIX 10 mg tablet TAKE 1 TABLET BY MOUTH EVERY DAY 30 tablet 5 losartan (COZAAR) 50 mg tablet TAKE 1 TABLET BY MOUTH EVERY DAY 30 tablet 5 albuterol (PROVENTIL) 5 mg/mL nebu INHALE 0.5 ML INSTRUCTED EVERY 6 HOURS NEEDED FOR WHEEZING/SHORTNESS OF BREATH. 20 mL 0 guaiFENesin (MUCINEX) 600 mg 12 hr tablet Take 1-2 tablets by mouth twice daily. 30 tablet 0 ibuprofen (MOTRIN) 600 mg tablet Take 1 tablet by mouth every 6 hours as needed for pain. 90 tablet 1 fluticasone (FLONASE ALLERGY RELIEF) 50 mcg/actuation nasal spray Use 1 [place] in each nostril once daily. 1 Each 5 tacrolimus (PROTOPIC) 0.1 % ointment APPLY TOPICALLY TO AFFECTED AREA ONCE EVERY MORNING clobetasol (TEMOVATE) 0.05 % ointment APPLY TO AFFECTED AREAS ONCE A DAY AT NIGHT TIME EXTERNALLY 14 DAY(S) albuterol HFA (PROAIR HFA) 90 mcg/actuation inhaler Inhale 2 Puffs as instructed every 4 hours as needed for Wheezing/Shortness of Breath. 18 g 5 Blood Pressure Monitor 1 Each as directed. 1 Kit 0 albuterol (PROVENTIL) 2.5 mg /3 mL (0.083 %) nebulizer solution Use 3 mL via nebulizer every 6 hours as needed for Wheezing/Shortness of Breath. 100 Vial 0 EPINEPHrine (EPIPEN) 0.3 mg/0.3 mL auto-injector Use as directed MULTIVIT &MINERALS/FERROUS FUM (MULTI VITAMIN ORAL) Take 1 tablet by mouth once daily. cholecalciferol (VITAMIN D3) 1,000 unit tab tablet Take 1,000 Units by mouth once daily. No current facility-administered medications for this visit. Vitals: BP 152/79 Pulse 72 Resp 16 Wt 98.2 kg (216 lb 7.9 oz) [facility] 03/24/2013 SpO2 99% BMI 39.60 kg/m Physical Exam: Physical Exam Vitals reviewed. Constitutional: General: She is not in acute distress. Appearance: She is not ill-appearing, toxic-appearing or diaphoretic. HENT: Head: Comments: Some swelling to the upper and lower lids, no erythema Eyes: General: Right eye: No discharge or hordeolum. Left eye: No hordeolum. Left eye discharge: increased tearing. Extraocular Movements: Extraocular movements intact. Conjunctiva/sclera: Right eye: Right conjunctiva is not injected. Left eye: Left conjunctiva is injected. Pupils: Pupils are equal, round, and reactive to light. Cardiovascular: Rate and Rhythm: Normal rate and regular rhythm. Pulmonary: Effort: Pulmonary effort is normal. Psychiatric: Behavior: Behavior is cooperative. ASSESSMENT/PLAN: (H57.9) Itchy eyes (primary encounter diagnosis) Plan: Olopatadine (PATADAY ONCE DAILY RELIEF) 0.2 % drop, tobramycin (TOBREX) 0.3 % ophthalmic solution (H02.846) Swelling of left eyelid, unspecified eyelid Plan: predniSONE (DELTASONE) 20 mg tablet, tobramycin (TOBREX) 0.3 % ophthalmic solution -Appears to have allergic conjunctivitis. -Pataday drops. Continue OTC antihistamine. Prednisone with food for inflammation. If no improvement or signs of bacterial conjunctivitis present, may fill paper script for antibiotic drops. -Wash hands before and after touching the eye. Do not rub the eye. -Warm compress to remove any drainage if there is any. Cool compress for comfort or itchiness. -If no improvement in 48 hours please follow up with Ophthalmology -Warning symptoms: sudden loss of vision, sharp eye pain, sudden blurry vision, dizziness. -Be seen immediately with warning symptoms. - See patient instructions for further recommendations. - Pt education along with discharge instructions given to pt - Discussed Red Flag signs and when to go to ER. - Pt agreeable with plan and verbalizes understanding. - Follow up with PCP if symptoms worsen or do not improve in the next 2-3 days. Essie Gee APRN.CNP 10:45 AM 11/13/24 Disposition The patient was discharged. Medical Decision Making: Level: 4 - Moderate documented in this encounter [facility] 11-13-2024 Instructions Essie Gee APRN.CNP - 11/13/2024 10:45 AM EDT (H57.9) Itchy eyes (primary encounter diagnosis) Plan: Olopatadine (PATADAY ONCE DAILY RELIEF) 0.2 % drop, tobramycin (TOBREX) 0.3 % ophthalmic solution (H02.846) Swelling of left eyelid, unspecified eyelid Plan: predniSONE (DELTASONE) 20 mg tablet, tobramycin (TOBREX) 0.3 % ophthalmic solution -Appears to have allergic conjunctivitis. -Pataday drops. Continue OTC antihistamine. Prednisone with food for inflammation. If no improvement or signs of bacterial conjunctivitis present, may fill paper script for antibiotic drops. -Wash hands before and after touching the eye. Do not rub the eye. -Warm compress to remove any drainage if there is any. Cool compress for comfort or itchiness. -If no improvement in 48 hours please follow up with Ophthalmology -Warning symptoms: sudden loss of vision, sharp eye pain, sudden blurry vision, dizziness. -Be seen immediately with warning symptoms. documented in this encounter [facility] 09-27-2024 Note SARS-COV-2 (AGENT OF COVID-19) RNA: Not detected INFLUENZA A RNA: Not detected INFLUENZA B RNA: Not detected RESPIRATORY SYNCYTIAL VIRUS (RSV) RNA: Not detected [facility] Comment on above: Performed By: #### [id number] ####[facility] [id number] [place] [address] [facility] 08-26-2024 Note HNO ID: [id number] Author: SARITHA JARAMILLO, PT Service: ? Author Type: Physical Therapist Type: Progress Notes Filed: 08/26/2024 14:14 Note Text: Episode Visit Count: 8 Therapist That Will Accept/Oversee The Plan Of Care: Rut aJramillo Start of Care Date: 07/02/24 Onset Date: 07/21/24 Patient Identified by Name and Date of : Yes REHABILITATION AND SPORTS THERAPY PHYSICAL THERAPY DISCONTINUANCE OF CARE PLAN OF CARE UPDATE: Assessment: Deborah Lugo is discontinued from Physical Therapy services due to goal achievement and maximal benefit.. Patient was seen for 8 visits from Start of Care Date: 07/02/24 to 08/26/2024 and treatment included: Therapeutic exercise, Neuromuscular re-education, and Manual therapy. Pateint has no evidence of dizziness for several weeks. Is Independent with home exercise program to address neck and l shoulder issues. May benefot from return to PT in future for left shoulder if symptoms do not resolve with home exercise program. Goal status as of 08/26/2024 Goals for Episode of Care: established 07/02/24 Patient will be able to correct postural deviations independently in order to allow for normal mechanics, to decrease current pain and prevent future recurrence. - M Patient will have negative positional testing for BPPV. - M Patient/family member will be independent in performing self PRT. - M Patient will verbalize the understanding of the diagnosis BPPV, how to recognize symptoms and what to do if they return. - M Patient will be independent with home exercise program and progression. - M Patient will return to prior level of function with all activities of daily living with trace reports of dizziness. - M Goal added 07/10/24 Cervical ROM without pain or dizziness - M Deep neck flexor endurance to 10 seconds - M Patient Goals: to no longer be dizzy - M M = Met PM = Partially Met NM = Not Met NT = Not Tested/Performed SUBJECTIVE: reports no longer having dizziness. L shoulder is feeling better after last session. States she is working on her posture, using lumbar support at work. Bought a new pillow for side sleepers which seems to be helping.. Pain: Pain Pain Level: 0 Post Treatment Pain Post Treatment Pain Level: No Change PROMIS Scales 08/12/2024 08/03/2024 07/14/2024 Higher is Better Phys Func - T Score 50 (within normal limits) 52 (within normal limits) Phys Func - Percentile 50 58 Self-Eff Symptom - T Score 48 (Average) Self-Eff Symptom - Percentile 42 Proxy-reported T-scores: mean of general population = 50. 5 points is clinically meaningfully difference Percentiles provide an indication of how the patient's score ranks in relation to the general population. Higher percentile rankings indicate better function/quality of life. 50th percentile is the average of the general population and indicates half of respondents had a worse score. OBJECTIVE MEASURES WITH LEVEL OF FUNCTION: Posture / Alignment Posture: Forward head, Rounded shoulders, Elevated shoulder -left Cervical Spine ROM Cervical Retraction AROM: Normal Cervical Rotation Right AROM: Normal Cervical Rotation Left AROM: Normal UE AROM L Shoulder Flex: (limited by pain) UE and Cervical Strength Deep Neck Flexor Endurance: 10 L Shoulder Horizontal ABduction: 4/5 L Shoulder Horizontal ADduction: 4/5 L Upper Trapezius: 5/5 L Middle Trapezius: 4/5 L Lower Trapezius: 4/5 TREATMENT: Therapeutic Exercise: 2: seated cervical retractions x10 3: cervical ROM rotation, flexion, ext 4: Seated UT stretch 2 x 30 seconds R/L 5: wall slide L x10 6: standing shoulder ext OTB 10 x 2 Skilled Intervention: Patient was educated in proper exercise technique and purpose for exercises. Reviewed and educated patient on additions/changes for home exercise program reviewed current home exercise program. Cues for proper scap set with rows.. Skilled judgment was used in selection of appropriate interventions. Correct performance of therapeutic exercises was facilitated with verbal, visual, and tactile cuing. Educated patient on rationale for performing exercises in regards to ROM and function. Manual Therapy: 2: STM to L upper trap in seated Skilled Intervention: Manual skills to improve joint mobility, ROM, and decrease pain. Utilized anatomy knowledge of the clinician, and assessment of patient's response to intervention. Billing Therapeutic Exercise Treatment Minutes: 20 Manual TherapyTreatment Minutes: 10 Skilled Treatment Time Minutes (timed and untimed codes): 30 Total Session Time (minutes): 30 Session Start Time : 1339 Session Stop Time : 1409 Saritha Jaramillo PT [facility] 08-26-2024 History of Present illness Narrative Images from the original note were not included. Episode Visit Count: 8 Therapist That Will Accept/Oversee The Plan Of Care: Rut Jaramillo Start of Care Date: 07/02/24 Onset Date: 07/21/24 Patient Identified by Name and Date of : Yes REHABILITATION AND SPORTS THERAPY PHYSICAL THERAPY DISCONTINUANCE OF CARE PLAN OF CARE UPDATE: Assessment: Deborah Lugo is discontinued from Physical Therapy services due to goal achievement and maximal benefit.. Patient was seen for 8 visits from Start of Care Date: 07/02/24 to 08/26/2024 and treatment included: Therapeutic exercise, Neuromuscular re-education, and Manual therapy. Pateint has no evidence of dizziness for several weeks. Is Independent with home exercise program to address neck and l shoulder issues. May benefot from return to PT in future for left shoulder if symptoms do not resolve with home exercise program. Goal status as of 08/26/2024 Goals for Episode of Care: established 07/02/24 Patient will be able to correct postural deviations independently in order to allow for normal mechanics, to decrease current pain and prevent future recurrence. - M Patient will have negative positional testing for BPPV. - M Patient/family member will be independent in performing self PRT. - M Patient will verbalize the understanding of the diagnosis BPPV, how to recognize symptoms and what to do if they return. - M Patient will be independent with home exercise program and progression. - M Patient will return to prior level of function with all activities of daily living with trace reports of dizziness. - M Goal added 07/10/24 Cervical ROM without pain or dizziness - M Deep neck flexor endurance to 10 seconds - M Patient Goals: to no longer be dizzy - M M = Met PM = Partially Met NM = Not Met NT = Not Tested/Performed SUBJECTIVE: reports no longer having dizziness. L shoulder is feeling better after last session. States she is working on her posture, using lumbar support at work. Bought a new pillow for side sleepers which seems to be helping.. Pain: Pain Pain Level: 0 Post Treatment Pain Post Treatment Pain Level: No Change PROMIS Scales 08/12/2024 08/03/2024 07/14/2024 Higher is Better Phys Func - T Score 50 (within normal limits) 52 (within normal limits) Phys Func - Percentile 50 58 Self-Eff Symptom - T Score 48 (Average) Self-Eff Symptom - Percentile 42 Proxy-reported T-scores: mean of general population = 50. 5 points is clinically meaningfully difference Percentiles provide an indication of how the patient's score ranks in relation to the general population. Higher percentile rankings indicate better function/quality of life. 50th percentile is the average of the general population and indicates half of respondents had a worse score. OBJECTIVE MEASURES WITH LEVEL OF FUNCTION: Posture / Alignment Posture: Forward head, Rounded shoulders, Elevated shoulder -left Cervical Spine ROM Cervical Retraction AROM: Normal Cervical Rotation Right AROM: Normal Cervical Rotation Left AROM: Normal UE AROM L Shoulder Flex: (limited by pain) UE and Cervical Strength Deep Neck Flexor Endurance: 10 L Shoulder Horizontal ABduction: 4/5 L Shoulder Horizontal ADduction: 4/5 L Upper Trapezius: 5/5 L Middle Trapezius: 4/5 L Lower Trapezius: 4/5 TREATMENT: Therapeutic Exercise: 2: seated cervical retractions x10 3: cervical ROM rotation, flexion, ext 4: Seated UT stretch 2 x 30 seconds R/L 5: wall slide L x10 6: standing shoulder ext OTB 10 x 2 Skilled Intervention: Patient was educated in proper exercise technique and purpose for exercises. Reviewed and educated patient on additions/changes for home exercise program reviewed current home exercise program. Cues for proper scap set with rows.. Skilled judgment was used in selection of appropriate interventions. Correct performance of therapeutic exercises was facilitated with verbal, visual, and tactile cuing. Educated patient on rationale for performing exercises in regards to ROM and function. Manual Therapy: 2: STM to L upper trap in seated Skilled Intervention: Manual skills to improve joint mobility, ROM, and decrease pain. Utilized anatomy knowledge of the clinician, and assessment of patient's response to intervention. Billing Therapeutic Exercise Treatment Minutes: 20 Manual TherapyTreatment Minutes: 10 Skilled Treatment Time Minutes (timed and untimed codes): 30 Total Session Time (minutes): 30 Session Start Time : 1339 Session Stop Time : 1409 Saritha Jaramillo PT documented in this encounter [facility] 08-19-2024 Note HNO ID: [id number] Author: JEAN MARIE PLASENCIA PTA Service: ? Author Type: [employer] Operations Center Technician Type: Progress Notes Filed: 08/19/2024 14:16 Note Text: Episode Visit Count: 7 Therapist That Will Accept/Oversee The Plan Of Care: Rut Jaramillo Start of Care Date: 07/02/24 Onset Date: 07/21/24 Patient Identified by Name and Date of : Yes REHABILITATION AND SPORTS THERAPY PHYSICAL THERAPY TREATMENT NOTE ASSESSMENT: Deborah Lugo tolerated the session with no issues. She demonstrated difficulty with left shoulder ER due to increase in pain and improvements in L shoulder flexion and neck tightness post session. The patient will continue to benefit from ongoing skilled physical therapy to progress toward set goals. PLAN FOR NEXT VISIT: Continue to adress upper trap tightness and L shoulder ROM SUBJECTIVE: Pt reports some improvements with L shoulder ROM and states that her neck has been feeling better Pain: Pain Pain Level: 0 Post Treatment Pain Post Treatment Pain Level: No Change OBJECTIVE MEASURES WITH LEVEL OF FUNCTION: TREATMENT: Therapeutic Exercise: 1: UBE 3 min bwd lvl 1 ACIDITY TESTER acessing posture and HEP throughout 2: seated cervical retractions x10 3: cervical ROM rotation, flexion, ext 4: Seated UT stretch 2 x 30 seconds R/L 5: wall slide L x10 6: standing shoulder ext OTB 10 x 2 7: supine horizonal abd pink Tband 10 x 2 8: bilateral shoulder ER OTB x10 (pain in left shoulder) Skilled Intervention: Patient was educated in proper exercise technique and purpose for exercises. Skilled judgment was used in selection of appropriate interventions. Correct performance of therapeutic exercises was facilitated with verbal and visual cuing. Manual Therapy: 1: supine cervical traction 10 second hold 5 second relax 2: STM to L upper trap in seated Skilled Intervention: Manual skills to improve joint mobility, ROM, and decrease pain. Utilized anatomy knowledge of the clinician, and assessment of patient's response to intervention. Billing Therapeutic Exercise Treatment Minutes: 26 Manual TherapyTreatment Minutes: 15 Skilled Treatment Time Minutes (timed and untimed codes): 41 Total Session Time (minutes): 41 Session Start Time : 1330 Session Stop Time : 1411 Jean Marie Plasencia PTA [facility] 08-19-2024 History of Present illness Narrative Episode Visit Count: 7 Therapist That Will Accept/Oversee The Plan Of Care: Rut Jaramillo Start of Care Date: 07/02/24 Onset Date: 07/21/24 Patient Identified by Name and Date of : Yes REHABILITATION AND SPORTS THERAPY PHYSICAL THERAPY TREATMENT NOTE ASSESSMENT: Deborah Lugo tolerated the session with no issues. She demonstrated difficulty with left shoulder ER due to increase in pain and improvements in L shoulder flexion and neck tightness post session. The patient will continue to benefit from ongoing skilled physical therapy to progress toward set goals. PLAN FOR NEXT VISIT: Continue to adress upper trap tightness and L shoulder ROM SUBJECTIVE: Pt reports some improvements with L shoulder ROM and states that her neck has been feeling better Pain: Pain Pain Level: 0 Post Treatment Pain Post Treatment Pain Level: No Change OBJECTIVE MEASURES WITH LEVEL OF FUNCTION: TREATMENT: Therapeutic Exercise: 1: UBE 3 min bwd lvl 1 ACIDITY TESTER acessing posture and HEP throughout 2: seated cervical retractions x10 3: cervical ROM rotation, flexion, ext 4: Seated UT stretch 2 x 30 seconds R/L 5: wall slide L x10 6: standing shoulder ext OTB 10 x 2 7: supine horizonal abd pink Tband 10 x 2 8: bilateral shoulder ER OTB x10 (pain in left shoulder) Skilled Intervention: Patient was educated in proper exercise technique and purpose for exercises. Skilled judgment was used in selection of appropriate interventions. Correct performance of therapeutic exercises was facilitated with verbal and visual cuing. Manual Therapy: 1: supine cervical traction 10 second hold 5 second relax 2: STM to L upper trap in seated Skilled Intervention: Manual skills to improve joint mobility, ROM, and decrease pain. Utilized anatomy knowledge of the clinician, and assessment of patient's response to intervention. Billing Therapeutic Exercise Treatment Minutes: 26 Manual TherapyTreatment Minutes: 15 Skilled Treatment Time Minutes (timed and untimed codes): 41 Total Session Time (minutes): 41 Session Start Time : 1330 Session Stop Time : 1411 Jean Marie Plasencia PTA documented in this encounter [facility] 08-12-2024 Note HNO ID: [id number] Author: SARITHA JARAMILLO PT Service: ? Author Type: Physical Therapist Type: Progress Notes Filed: 08/12/2024 15:43 Note Text: Episode Visit Count: 6 Therapist That Will Accept/Oversee The Plan Of Care: Rut Jaramillo Start of Care Date: 07/02/24 Onset Date: 07/21/24 Patient Identified by Name and Date of : Yes REHABILITATION AND SPORTS THERAPY PHYSICAL THERAPY TREATMENT NOTE ASSESSMENT: Deborah Lugo tolerated the session with no issues. She demonstrated improvements in neck ROM and left shoulder ROM post treatment. The patient will continue to benefit from ongoing skilled physical therapy to progress toward set goals. PLAN FOR NEXT VISIT: address scap stability, U trap tightness, L shoulder AROM SUBJECTIVE: reports soreness after last session. Denies dizziness. Got a lumbar support that has been helping. Pain: Pain Pain Level: 3 Pain Location: Shoulder - Left Description: Tightness Frequency: Intermittent Post Treatment Pain Post Treatment Pain Level: Better OBJECTIVE MEASURES WITH LEVEL OF FUNCTION: Cervical Spine ROM Cervical Retraction AROM: Minimal limitation Cervical Rotation Right AROM: Minimal limitation Cervical Rotation Left AROM: Minimal limitation UE AROM L Shoulder Flex: (L shoulder ER rotation 72 degrees - measured in supine) UE and Cervical Strength Strength Tested: Scapula Deep Neck Flexor Endurance: 10 R Upper Trapezius: 5/5 R Middle Trapezius: 4/5 R Lower Trapezius: 4-/5 L Upper Trapezius: 5/5 L Middle Trapezius: 4/5 L Lower Trapezius: 4-/5 TREATMENT: Therapeutic Exercise: 1: seated neck retraction 2: seated neck rotation 3: Seated UT stretch 2 x 30 seconds R/L 4: standing shoulder extension with thoracic and hip extension orange tb 10 x 2 Skilled Intervention: Patient was educated in proper exercise technique and purpose for exercises. Skilled judgment was used in selection of appropriate interventions. Provided written instruction for home exercise program to facilitate proper performance and compliance. Correct performance of therapeutic exercises was facilitated with verbal, visual, and tactile cuing. Education regarding posture correction/use of lumbar roll. Manual Therapy: 1: sub occ release 5 min 2: Utrap STM/DTM patient supine 3: TUtrap stretch - supine Skilled Intervention: Manual skills to improve joint mobility, ROM, and decrease pain. Utilized anatomy knowledge of the clinician, and assessment of patient's response to intervention. Billing Therapeutic Exercise Treatment Minutes: 20 Manual TherapyTreatment Minutes: 25 Skilled Treatment Time Minutes (timed and untimed codes): 45 Total Session Time (minutes): 45 Session Start Time : 1425 Session Stop Time : 1510 Saritha Jaramillo PT [facility] 08-03-2024 Note HNO ID: [id number] Author: PETER GEE PTA Service: ? Author Type: [employer] Technician Type: Progress Notes Filed: 08/03/2024 18:19 Note Text: Episode Visit Count: 5 Therapist That Will Accept/Oversee The Plan Of Care: Rut Jaramillo Start of Care Date: 07/02/24 Onset Date: 07/21/24 Patient Identified by Name and Date of : Yes REHABILITATION AND SPORTS THERAPY PHYSICAL THERAPY TREATMENT NOTE ASSESSMENT: Deborah Lugo tolerated the session with expected muscle soreness. She demonstrated improvements in postural awareness and scapular humeral rhythm. The patient will continue to benefit from ongoing skilled physical therapy to progress toward set goals. PLAN FOR NEXT VISIT: address left scapula mobility , and stability , with left shoulder motion ,continue to progress left shoulder ROM ER and flexion SUBJECTIVE: patient reports tightness and tenderness with palpation aroung medial and lateral boarder of left scapula Pain: Pain Pain Level: 4 Pain Location: Shoulder - Left, Scapula - Left Description: Tenderness, Tightness Frequency: Intermittent Post Treatment Pain Post Treatment Pain Level: No Change OBJECTIVE MEASURES WITH LEVEL OF FUNCTION: TREATMENT: Therapeutic Exercise: 1: *hooklying cervical retraction with scapular retraction and thoracic extension 5 second hold x 10 x 2 2: seated shoulder extension with thoracic extension orang tb 10 x 2 3: *stand ing shoulder extension with thoracic and hip extension orange tb 10 x 2 4: seated postural awareness , advised patient to use lumbar roll to improve normal kyphoosis and lordosis of lumbar thoracic , and cervical spine 5: seated AROM left sh;oulder flexion 10 x x , 6: standing left shoulder flexion wall slide AROM 5 x 3 7: educated patient on scapular humeral rhythm Skilled Intervention: Patient was educated in proper exercise technique and purpose for exercises. Reviewed and educated patient on additions/changes for home exercise program as above (*). Skilled judgment was used in selection of appropriate interventions. Provided written instruction for home exercise program to facilitate proper performance and compliance. Patient education as noted. Manual Therapy: 1: sidelying right , left scapula medial and lateral boarder stm , then scapular mobility 2: hooklying AAROM left shoulder flexion with manual stability of left lateral boarder of scapula 15 second hold x 3 3: hooklying inferior lateral and posterior lateral left humeral gflides Skilled Intervention: Manual skills to improve joint mobility, ROM, and decrease pain. Utilized anatomy knowledge of the clinician, and assessment of patient's response to intervention. Billing Therapeutic Exercise Treatment Minutes: 35 Manual TherapyTreatment Minutes: 12 Skilled Treatment Time Minutes (timed and untimed codes): 47 Total Session Time (minutes): 47 Session Start Time : 1501 Session Stop Time : 1548 Peter Gee PTA [facility] 08-03-2024 History of Present illness Narrative Episode Visit Count: 5 Therapist That Will Accept/Oversee The Plan Of Care: Rut Jaramillo Start of Care Date: 07/02/24 Onset Date: 07/21/24 Patient Identified by Name and Date of : Yes REHABILITATION AND SPORTS THERAPY PHYSICAL THERAPY TREATMENT NOTE ASSESSMENT: Deborah Lugo tolerated the session with expected muscle soreness. She demonstrated improvements in postural awareness and scapular humeral rhythm. The patient will continue to benefit from ongoing skilled physical therapy to progress toward set goals. PLAN FOR NEXT VISIT: address left scapula mobility , and stability , with left shoulder motion ,continue to progress left shoulder ROM ER and flexion SUBJECTIVE: patient reports tightness and tenderness with palpation aroung medial and lateral boarder of left scapula Pain: Pain Pain Level: 4 Pain Location: Shoulder - Left, Scapula - Left Description: Tenderness, Tightness Frequency: Intermittent Post Treatment Pain Post Treatment Pain Level: No Change OBJECTIVE MEASURES WITH LEVEL OF FUNCTION: TREATMENT: Therapeutic Exercise: 1: *hooklying cervical retraction with scapular retraction and thoracic extension 5 second hold x 10 x 2 2: seated shoulder extension with thoracic extension orang tb 10 x 2 3: *stand ing shoulder extension with thoracic and hip extension orange tb 10 x 2 4: seated postural awareness , advised patient to use lumbar roll to improve normal kyphoosis and lordosis of lumbar thoracic , and cervical spine 5: seated AROM left sh;oulder flexion 10 x x , 6: standing left shoulder flexion wall slide AROM 5 x 3 7: educated patient on scapular humeral rhythm Skilled Intervention: Patient was educated in proper exercise technique and purpose for exercises. Reviewed and educated patient on additions/changes for home exercise program as above (*). Skilled judgment was used in selection of appropriate interventions. Provided written instruction for home exercise program to facilitate proper performance and compliance. Patient education as noted. Manual Therapy: 1: sidelying right , left scapula medial and lateral boarder stm , then scapular mobility 2: hooklying AAROM left shoulder flexion with manual stability of left lateral boarder of scapula 15 second hold x 3 3: hooklying inferior lateral and posterior lateral left humeral gflides Skilled Intervention: Manual skills to improve joint mobility, ROM, and decrease pain. Utilized anatomy knowledge of the clinician, and assessment of patient's response to intervention. Billing Therapeutic Exercise Treatment Minutes: 35 Manual TherapyTreatment Minutes: 12 Skilled Treatment Time Minutes (timed and untimed codes): 47 Total Session Time (minutes): 47 Session Start Time : 1501 Session Stop Time : 1548 Peter Gee PTA Program_ID:[id number] Access Code: [email or web address] URL: [email or web address] Date: 08-03-2024 Prepared By: Saritha Jaramillo Program Notes Exercises - Supine Chin Tuck - 1 x daily - 5 x weekly - 2 sets - 10 reps - Supine Thoracic Mobilization Towel Roll Vertical with Arm Stretch - 1 x daily - 5 x weekly - 2 sets - 10 reps - Shoulder Extension with Resistance - Palms Forward - 1-2 x daily - 5 x weekly - 2-3 sets - 10 reps - Supine Shoulder External Rotation with Resistance - 1-2 x daily - 5 x weekly - 2-3 sets - 10 reps documented in this encounter [facility] 07-27-2024 Telephone encounter Note S-Patient states she has been coughing for 1 week and thought that she would be better by now, Is wheezing, using inhaler and nebulizer. Is still constantly coughing B-Went to [facility] last week and was on Steroids that did not seem to help. A-Patient has green sputum, did not test for COVID. States has seasonal allergies but this is much worse than in the past, has had this since last Saturday R-Pt would like to be seen and no appointments available-Please call patient at [phone], advised to use Nebulizer with back to back treatment 20-30 min apart x1 and if any worsening symptoms to call back. [facility] 07-27-2024 Miscellaneous Notes S-Patient states she has been coughing for 1 week and thought that she would be better by now, Is wheezing, using inhaler and nebulizer. Is still constantly coughing B-Went to [facility] last week and was on Steroids that did not seem to help. A-Patient has green sputum, did not test for COVID. States has seasonal allergies but this is much worse than in the past, has had this since last Saturday R-Pt would like to be seen and no appointments available-Please call patient at [phone], advised to use Nebulizer with back to back treatment 20-30 min apart x1 and if any worsening symptoms to call back. Reason for Disposition Wheezing is present Answer Assessment - Initial Assessment Questions . Protocols used: Cough - Acute Aqpkhndnew-IRONB-JV documented in this encounter [facility] 07-27-2024 Telephone encounter Note Reason for Disposition Wheezing is present Answer Assessment - Initial Assessment Questions . Protocols used: Cough - Acute Pehkyfdkqf-XQUWH-MO [facility] 07-24-2024 Note HNO ID: [id number] Author: SARITHA JARAMILLO, [place] Service: ? Author Type: Physical Therapist Type: Progress Notes Filed: 07/24/2024 16:35 Note Text: Episode Visit Count: 4 Therapist That Will Accept/Oversee The Plan Of Care: Rut Jaramillo Start of Care Date: 07/02/24 Onset Date: 07/21/24 Patient Identified by Name and Date of : Yes REHABILITATION AND SPORTS THERAPY PHYSICAL THERAPY PROGRESS REPORT PLAN OF CARE UPDATE: Assessment: Deborah Lugo demonstrates moderate improvement in reports of dizziness impacting daily activities. The patient has met BPPV goals and progressed toward goals. Patient continues to present with impairments in flexibility, independence in exercise, posture, strength, and tissue tenderness that interfere with physical activities, reaching behind back, reaching overhead, cleaning . Current prognosis is Good due to: current objective clinical presentation . Patient with significant tightness to left cervical soft tissue as well as limitation to left shoulder that require further assessment The patient will benefit from continued skilled therapy services to meet the updated goals for this plan of care as noted below. Goal status as of 07/24/2024 Goals for Episode of Care: established 07/02/24 Patient will be able to correct postural deviations independently in order to allow for normal mechanics, to decrease current pain and prevent future recurrence. - PM Patient will have negative positional testing for BPPV. - M Patient/family member will be independent in performing self PRT. - M Patient will verbalize the understanding of the diagnosis BPPV, how to recognize symptoms and what to do if they return. - M Patient will be independent with home exercise program and progression. - Ongoing Patient will return to prior level of function with all activities of daily living with trace reports of dizziness. - M Goal added 07/10/24 Cervical ROM without pain or dizziness - PM Deep neck flexor endurance to 10 seconds - M Patient Goals: to no longer be dizzy - M M = Met PM = Partially Met NM = Not Met NT = Not Tested/Performed Time Frame for Goals and Treatment : 08/31/24 Planned Interventions, Frequency, and Duration: 1x/week, 4 weeks Total Number of Visits Planned: 8 (4 more) Patient to be seen for Therapeutic exercise (33623), Neuromuscular re-education (93091), Therapeutic activities (47567), Canalith Repositioning Maneuvers (58270), Manual therapy (56578) PLAN FOR NEXT VISIT: address cervical and L shoulder STR and shoulder ROM and strength deficits. More formal L shoulder assessment next visit with PT. SUBJECTIVE: notes neck is feeling looser. ex are going well. No recurrance of dizziness. Reports tightness to left shoulder when attempting thoracic extension with hands behind head. States she gets pain with elevating left arm in certain positions. Functional Limitations: physical activities, reaching behind back, reaching overhead, cleaning Pain: Pain Pain Level: 4 Pain Location: Neck - Left Description: Stiffness Frequency: Intermittent Post Treatment Pain Post Treatment Pain Level: Better PROMIS Scales 07/14/2024 07/02/2024 Higher is Better Phys Func - T Score 52 (within normal limits) Phys Func - Percentile 58 Self-Eff Symptom - T Score 48 (Average) Self-Eff Symptom - Percentile 42 Proxy-reported T-scores: mean of general population = 50. 5 points is clinically meaningfully difference Percentiles provide an indication of how the patient's score ranks in relation to the general population. Higher percentile rankings indicate better function/quality of life. 50th percentile is the average of the general population and indicates half of respondents had a worse score. OBJECTIVE MEASURES WITH LEVEL OF FUNCTION: Posture / Alignment Posture: Forward head, Rounded shoulders, Elevated shoulder -left Spine Observations L Cervical Spine Palpation Tenderness: Upper trapezius, Levator scapulae, Pectoralis minor, Sternocleidomastoid Cervical Spine ROM Cervical Protrusion AROM: Normal Cervical Retraction AROM: Minimal limitation Cervical Flexion AROM: Minimal limitation Cervical Extension AROM: Minimal limitation Cervical Side-Bend Right AROM: Minimal limitation Cervical Side-Bend Left AROM: Minimal limitation Cervical Rotation Right AROM: Minimal limitation Cervical Rotation Left AROM: Normal Additional AROM: Extremities UE AROM L Shoulder Flex: (L shoulder flexion and ER limited by pain and STR. Painful arc noted.) L Shoulder ABduction: (tight end feel) UE and Cervical Strength Deep Neck Flexor Endurance: 10 sec TREATMENT: Therapeutic Exercise: 1: seated cervical AROM 2: *supine head deweight 10 sec 5x 2 3: *supine T stretch with and without towel roll 30 sec 3x 4: attempted supine elbow press - limited L shoulder ER noted 5: recheck per objective measures Skilled Intervention: [place] (more content not included)... [facility] 07-24-2024 History of Present illness Narrative Images from the original note were not included. Episode Visit Count: 4 Therapist That Will Accept/Oversee The Plan Of Care: Rut Jaramillo Start of Care Date: 07/02/24 Onset Date: 07/21/24 Patient Identified by Name and Date of : Yes REHABILITATION AND SPORTS THERAPY PHYSICAL THERAPY PROGRESS REPORT PLAN OF CARE UPDATE: Assessment: Deborah Lugo demonstrates moderate improvement in reports of dizziness impacting daily activities. The patient has met BPPV goals and progressed toward goals. Patient continues to present with impairments in flexibility, independence in exercise, posture, strength, and tissue tenderness that interfere with physical activities, reaching behind back, reaching overhead, cleaning . Current prognosis is Good due to: current objective clinical presentation . Patient with significant tightness to left cervical soft tissue as well as limitation to left shoulder that require further assessment The patient will benefit from continued skilled therapy services to meet the updated goals for this plan of care as noted below. Goal status as of 07/24/2024 Goals for Episode of Care: established 07/02/24 Patient will be able to correct postural deviations independently in order to allow for normal mechanics, to decrease current pain and prevent future recurrence. - PM Patient will have negative positional testing for BPPV. - M Patient/family member will be independent in performing self PRT. - M Patient will verbalize the understanding of the diagnosis BPPV, how to recognize symptoms and what to do if they return. - M Patient will be independent with home exercise program and progression. - Ongoing Patient will return to prior level of function with all activities of daily living with trace reports of dizziness. - M Goal added 07/10/24 Cervical ROM without pain or dizziness - PM Deep neck flexor endurance to 10 seconds - M Patient Goals: to no longer be dizzy - M M = Met PM = Partially Met NM = Not Met NT = Not Tested/Performed Time Frame for Goals and Treatment : 08/31/24 Planned Interventions, Frequency, and Duration: 1x/week, 4 weeks Total Number of Visits Planned: 8 (4 more) Patient to be seen for Therapeutic exercise (58239), Neuromuscular re-education (10382), Therapeutic activities (49643), Canalith Repositioning Maneuvers (59795), Manual therapy (30378) PLAN FOR NEXT VISIT: address cervical and L shoulder STR and shoulder ROM and strength deficits. More formal L shoulder assessment next visit with PT. SUBJECTIVE: notes neck is feeling looser. ex are going well. No recurrance of dizziness. Reports tightness to left shoulder when attempting thoracic extension with hands behind head. States she gets pain with elevating left arm in certain positions. Functional Limitations: physical activities, reaching behind back, reaching overhead, cleaning Pain: Pain Pain Level: 4 Pain Location: Neck - Left Description: Stiffness Frequency: Intermittent Post Treatment Pain Post Treatment Pain Level: Better PROMIS Scales 07/14/2024 07/02/2024 Higher is Better Phys Func - T Score 52 (within normal limits) Phys Func - Percentile 58 Self-Eff Symptom - T Score 48 (Average) Self-Eff Symptom - Percentile 42 Proxy-reported T-scores: mean of general population = 50. 5 points is clinically meaningfully difference Percentiles provide an indication of how the patient's score ranks in relation to the general population. Higher percentile rankings indicate better function/quality of life. 50th percentile is the average of the general population and indicates half of respondents had a worse score. OBJECTIVE MEASURES WITH LEVEL OF FUNCTION: Posture / Alignment Posture: Forward head, Rounded shoulders, Elevated shoulder -left Spine Observations L Cervical Spine Palpation Tenderness: Upper trapezius, Levator scapulae, Pectoralis minor, Sternocleidomastoid Cervical Spine ROM Cervical Protrusion AROM: Normal Cervical Retraction AROM: Minimal limitation Cervical Flexion AROM: Minimal limitation Cervical Extension AROM: Minimal limitation Cervical Side-Bend Right AROM: Minimal limitation Cervical Side-Bend Left AROM: Minimal limitation Cervical Rotation Right AROM: Minimal limitation Cervical Rotation Left AROM: Normal Additional AROM: Extremities UE AROM L Shoulder Flex: (L shoulder flexion and ER limited by pain and STR. Painful arc noted.) L Shoulder ABduction: (tight end feel) UE and Cervical Strength Deep Neck Flexor Endurance: 10 sec TREATMENT: Therapeutic Exercise: 1: seated cervical AROM 2: *supine head deweight 10 sec 5x 2 3: *supine T stretch with and without towel roll 30 sec 3x 4: attempted supine elbow press - limited L shoulder ER noted 5: recheck per objective measures Skilled Intervention: Patient was educated in proper exercise technique and purpose for exercises. Reviewed and educated patient on additions/changes for home exercise program as above (*). Skilled judgment was used in selection of appropriate interventions. Provided written instruction for home exercise program to facilitate proper performance and compliance. Educated patient on rationale for performing exercises in regards to ROM and function . Manual Therapy: 1: supine STM/DTM L UT, LS and pec minor. 2: passive supine L UT stretch 3: LAD L shoulder - patient supine Skilled Intervention: Manual skills to improve joint mobility, ROM, and decrease pain. Utilized anatomy knowledge of the clinician, and assessment of patient's response to intervention. Billing Therapeutic Exercise Treatment Minutes: 19 Manual TherapyTreatment Minutes: 20 Skilled Treatment Time Minutes (timed and untimed codes): 39 Total Session Time (minutes): 39 Session Start Time : 1503 Session Stop Time : 1542 Saritha Jaramillo PT documented in this encounter [facility] 07-24-2024 Progress note Formatting of t his note might be different from the original. Program_ID:[id number] Access Code: [email or web address] URL: [email or web address] Date: 07-24-2024 Prepared By: Saritha Jaramillo Program Notes Exercises - Supine Chin Tuck - 1 x daily - 5 x weekly - 2 sets - 10 reps - Supine Thoracic Mobilization Towel Roll Vertical with Arm Stretch - 1 x daily - 5 x weekly - 2 sets - 10 reps [facility] 07-24-2024 Miscellaneous Notes Program_ID:[id number] Access Code: [email or web address] URL: [email or web address] Date: 07-24-2024 Prepared By: Saritha Jaramillo Program Notes Exercises - Supine Chin Tuck - 1 x daily - 5 x weekly - 2 sets - 10 reps - Supine Thoracic Mobilization Towel Roll Vertical with Arm Stretch - 1 x daily - 5 x weekly - 2 sets - 10 reps documented in this encounter [facility] 07-23-2024 Instructions Timmy Lemus APRN.AUTOMATION SALES MANAGER - 07/23/2024 12:31 PM EDT UPPER RESPIRATORY INFECTIONS Most cases are caused by viruses and most cases are mild, temporary, and harmless. Symptoms can last 2 to 3 weeks and can include: nasal congestion, sore throat, coughing, muscles aches, headaches, nausea, diarrhea, fatigue and fever. Rhinovirus, RSV, Covid, Influenza A and B, Parainfluenza are just a few COMMON respiratory viruses that cause sinus symptoms and cough. Antibiotics do NOT treat viruses. Taking 1 round of antibiotics can destroy your gut normal bailee (good bacteria) for up to 6 months. This can affect your weight, skin, digestion, mental health and immune system. 1. Drink plenty of fluids. 2. Get lots of rest. 3. Avoid dehydrants such as caffeine and alcohol. 4. Nasal saline is an effective decongestant and be used frequently throughout the day. 5. To loosen phlegm and help coughing, drink plenty of fluids and using a humidifier. 6. For sore throats, it is ok to use cough drops, throat sprays, or gargling warm salt water. 7. Always cover your mouth when you cough or sneeze, and wash your hands frequently. Avoid crowded areas like shopping centers, movies while you are sick so you don't excelsior picker a different virus, or infect others. 8. Avoid exposure to cigarettes or fumes. 9. Avoid irritants such as potpourri, dust, perfumes, scented candles and scented sprays 10. Air conditioning is an effective allergen and irritant avoidance strategy in the spring, summer and fall. 11. Honey is an effective cough suppressant. Try one tsp 3-4 times per day. 12. Mucinex every 12 hours with a full 10-12 ounces of water 13. Afrin for 3-4 days for congestion and post nasal drainage is both safe and effective documented in this encounter [facility] 07-23-2024 Note HNO ID: [id number] Author: TIMMY LEMUS APRN.MELISSA Service: ? Author Type: Nurse Practitioner Type: Progress Notes Filed: 07/23/2024 12:35 Note Text: [facility] Subjective The patient is a 59-year-old female with a history of asthma and seasonal allergies, presenting with dyspnea, chest tightness, and cough. HPI Dyspnea and Chest Tightness: - Onset of symptoms a few days ago, including dyspnea, chest tightness, and wheezing. - Symptoms occur annually around late June. - Denies recent illness. - Using albuterol inhaler once or twice daily; also using a nebulizer at home, most recently the past two nights. - Denies significant congestion or rhinorrhea; notes clear nasal drainage. - Symptoms include an annoying dry cough. - Taking Zyrtec daily and received allergy shots on Saturday; cough began Saturday evening. - Uses Flonase intermittently. Review of Systems Ears/Nose/Mouth/Throat: (+) nasal drainage Respiratory: (+) shortness of breath, (+) chest tightness, (+) dry cough, (+) wheezing Objective BP 141/82 (BP Site: Left Arm, BP Position: Sitting, BP Cuff Size: Regular Adult) Pulse 76 Temp 37.2 ?C (99 ?F) (Left Tympanic) Resp 16 Wt 98.9 kg (218 lb 2.3 oz) LMP 03/24/2013 SpO2 95% BMI 39.26 kg/m? Physical Exam General: No acute distress. HEENT: Oropharynx without erythema; tympanic membranes clear bilaterally. CV: Normal heart sounds. Resp: Breath sounds diminished bilaterally. MDM 1. Acute cough (R05.1) 2. Wheezing (R06.2) 3. SOB (shortness of breath) (R06.02) - Examination reveals diminished breath sounds, indicating narrowed airways; no wheezing auscultated. - Prescribed prednisone taper: 30 mg daily for 3 days, 20 mg daily for 3 days, 10 mg daily for 3 days. - Prescribed prescription-strength antitussive for nocturnal use to aid sleep. - Advised increased use of albuterol inhaler every 4-6 hours as needed for bronchospasm relief; instructed on alternating use with nebulizer treatment. - Discussed the role of corticosteroids in reducing pulmonary inflammation and the mechanism of action of albuterol in bronchodilation. - Recommended steam inhalation and purposeful deep breathing exercises to maintain airway patency. - Advised use of plain Mucinex to facilitate expectoration as symptoms improve. - Patient understands and agrees with the treatment plan. Take the prednisone taper as prescribed using 10 mg tablets: - Take 3 tablets per day for 3 days, - Then take 2 tablets per day for 3 days, - Then take 1 tablet per day for 3 days (you may adjust the taper if you start feeling better). Use the prescribed cough medicine at bedtime as needed to help suppress your cough and assist with sleep. For shortness of breath or wheezing, use your albuterol inhaler every 4 to 6 hours as needed. If you feel you need extra relief--especially before bed--you may use your nebulizer instead (choose one option each time). Practice deep breathing and purposeful coughing during the day to help clear your lungs; using steam may also be beneficial. Take plain Mucinex as directed to help thin out and loosen mucus if you begin coughing up thick secretions. Continue taking your daily Zyrtec for seasonal allergies and use your Flonase when needed. All prescriptions have been sent to [facility]. Medical Decision Making: Problems: Moderate: New problem with uncertain prognosis Data: Unique source(s) for external note(s) reviewed: 1 Risk: Moderate: Drug management Medical Decision Making Level: 4 - Moderate [facility] 07-23-2024 History of Present illness Narrative [facility] Subjective The patient is a 59-year-old female with a history of asthma and seasonal allergies, presenting with dyspnea, chest tightness, and cough. HPI Dyspnea and Chest Tightness: - Onset of symptoms a few days ago, including dyspnea, chest tightness, and wheezing. - Symptoms occur annually around late June. - Denies recent illness. - Using albuterol inhaler once or twice daily; also using a nebulizer at home, most recently the past two nights. - Denies significant congestion or rhinorrhea; notes clear nasal drainage. - Symptoms include an annoying dry cough. - Taking Zyrtec daily and received allergy shots on Saturday; cough began Saturday evening. - Uses Flonase intermittently. Review of Systems Ears/Nose/Mouth/Throat: (+) nasal drainage Respiratory: (+) shortness of breath, (+) chest tightness, (+) dry cough, (+) wheezing Objective BP 141/82 (BP Site: Left Arm, BP Position: Sitting, BP Cuff Size: Regular Adult) Pulse 76 Temp 37.2 C (99 F) (Left Tympanic) Resp 16 Wt 98.9 kg (218 lb 2.3 oz) [facility] 03/24/2013 SpO2 95% BMI 39.26 kg/m Physical Exam General: No acute distress. HEENT: Oropharynx without erythema; tympanic membranes clear bilaterally. CV: Normal heart sounds. Resp: Breath sounds diminished bilaterally. MDM 1. Acute cough (R05.1) 2. Wheezing (R06.2) 3. SOB (shortness of breath) (R06.02) - Examination reveals diminished breath sounds, indicating narrowed airways; no wheezing auscultated. - Prescribed prednisone taper: 30 mg daily for 3 days, 20 mg daily for 3 days, 10 mg daily for 3 days. - Prescribed prescription-strength antitussive for nocturnal use to aid sleep. - Advised increased use of albuterol inhaler every 4-6 hours as needed for bronchospasm relief; instructed on alternating use with nebulizer treatment. - Discussed the role of corticosteroids in reducing pulmonary inflammation and the mechanism of action of albuterol in bronchodilation. - Recommended steam inhalation and purposeful deep breathing exercises to maintain airway patency. - Advised use of plain Mucinex to facilitate expectoration as symptoms improve. - Patient understands and agrees with the treatment plan. Take the prednisone taper as prescribed using 10 mg tablets: - Take 3 tablets per day for 3 days, - Then take 2 tablets per day for 3 days, - Then take 1 tablet per day for 3 days (you may adjust the taper if you start feeling better). Use the prescribed cough medicine at bedtime as needed to help suppress your cough and assist with sleep. For shortness of breath or wheezing, use your albuterol inhaler every 4 to 6 hours as needed. If you feel you need extra relief--especially before bed--you may use your nebulizer instead (choose one option each time). Practice deep breathing and purposeful coughing during the day to help clear your lungs; using steam may also be beneficial. Take plain Mucinex as directed to help thin out and loosen mucus if you begin coughing up thick secretions. Continue taking your daily Zyrtec for seasonal allergies and use your Flonase when needed. All prescriptions have been sent to [facility]. Medical Decision Making: Problems: Moderate: New problem with uncertain prognosis Data: Unique source(s) for external note(s) reviewed: 1 Risk: Moderate: Drug management Medical Decision Making Level: 4 - Moderate documented in this encounter [facility] 07-14-2024 Note HNO ID: [id number] Author: JEAN MARIE PLASENCIA PTA Service: ? Author Type: Network Operations Center Technician Type: Progress Notes Filed: 07/14/2024 15:07 Note Text: Episode Visit Count: 3 Therapist That Will Accept/Oversee The Plan Of Care: Rut Jaramillo Start of Care Date: 07/02/24 Onset Date: 07/21/24 Patient Identified by Name and Date of : Yes REHABILITATION AND SPORTS THERAPY PHYSICAL THERAPY TREATMENT NOTE ASSESSMENT: Deborah Lugo tolerated the session with decreased symptoms and expected muscle soreness. She demonstrated difficulty with prone exercises due to increase in pain, pain noted with UE movement. The patient will continue to benefit from ongoing skilled physical therapy to progress toward set goals. PLAN FOR NEXT VISIT: continue to adress cervical ROM, posture and STM SUBJECTIVE: patient reports stiffness in her nech however state that she has been doing her HEP and has noticed some increase in ROM Pain: Pain Pain Level: 5 Pain Location: Neck Description: Stiffness Frequency: Intermittent Post Treatment Pain Post Treatment Pain Level: 4 Post Treatment Pain Location: Neck Post Treatment Pain Description: Stiffness OBJECTIVE MEASURES WITH LEVEL OF FUNCTION: TREATMENT: Therapeutic Exercise: 1: cervical AROM flex/ext; rot x10 ea 2: Seated UT stretch 2 x 30 seconds R/L 3: cervical retractions 5 x 2 4: *scap sets x10 5: head press x10; shoulder press x10 6: prone head and chest x10 7: prone T x10 Skilled Intervention: Patient was educated in proper exercise technique and purpose for exercises. Reviewed and educated patient on additions/changes for home exercise program as above (*). Skilled judgment was used in selection of appropriate interventions. Correct performance of therapeutic exercises was facilitated with verbal, visual, and tactile cuing. Manual Therapy: 1: STM L UT Skilled Intervention: Manual skills to improve joint mobility, ROM, and decrease pain. Utilized anatomy knowledge of the therapist, and assessment of patient's response to intervention. Billing Therapeutic Exercise Treatment Minutes: 32 Manual TherapyTreatment Minutes: 10 Skilled Treatment Time Minutes (timed and untimed codes): 42 Total Session Time (minutes): 42 Session Start Time : 1420 Session Stop Time : 1502 Jean Marie Plasencia PTA [facility] 07-14-2024 History of Present illness Narrative Episode Visit Count: 3 Therapist That Will Accept/Oversee The Plan Of Care: Rut Jaramillo Start of Care Date: 07/02/24 Onset Date: 07/21/24 Patient Identified by Name and Date of : Yes REHABILITATION AND SPORTS THERAPY PHYSICAL THERAPY TREATMENT NOTE ASSESSMENT: Deborah Lugo tolerated the session with decreased symptoms and expected muscle soreness. She demonstrated difficulty with prone exercises due to increase in pain, pain noted with UE movement. The patient will continue to benefit from ongoing skilled physical therapy to progress toward set goals. PLAN FOR NEXT VISIT: continue to adress cervical ROM, posture and STM SUBJECTIVE: patient reports stiffness in her nech however state that she has been doing her HEP and has noticed some increase in ROM Pain: Pain Pain Level: 5 Pain Location: Neck Description: Stiffness Frequency: Intermittent Post Treatment Pain Post Treatment Pain Level: 4 Post Treatment Pain Location: Neck Post Treatment Pain Description: Stiffness OBJECTIVE MEASURES WITH LEVEL OF FUNCTION: TREATMENT: Therapeutic Exercise: 1: cervical AROM flex/ext; rot x10 ea 2: Seated UT stretch 2 x 30 seconds R/L 3: cervical retractions 5 x 2 4: *scap sets x10 5: head press x10; shoulder press x10 6: prone head and chest x10 7: prone T x10 Skilled Intervention: Patient was educated in proper exercise technique and purpose for exercises. Reviewed and educated patient on additions/changes for home exercise program as above (*). Skilled judgment was used in selection of appropriate interventions. Correct performance of therapeutic exercises was facilitated with verbal, visual, and tactile cuing. Manual Therapy: 1: STM L UT Skilled Intervention: Manual skills to improve joint mobility, ROM, and decrease pain. Utilized anatomy knowledge of the therapist, and assessment of patient's response to intervention. Billing Therapeutic Exercise Treatment Minutes: 32 Manual TherapyTreatment Minutes: 10 Skilled Treatment Time Minutes (timed and untimed codes): 42 Total Session Time (minutes): 42 Session Start Time : 1420 Session Stop Time : 1502 Jean Marie Plasencia PTA documented in this encounter [facility] 07-10-2024 Note HNO ID: [id number] Author: SARITHA JARAMILLO, HA[place] Service: ? Author Type: Physical Therapist Type: Progress Notes Filed: 07/10/2024 14:58 Note Text: Episode Visit Count: 2 Therapist That Will Accept/Oversee The Plan Of Care: Rut Jaramillo Start of Care Date: 07/02/24 Onset Date: 07/21/24 Patient Identified by Name and Date of : Yes REHABILITATION AND SPORTS THERAPY PHYSICAL THERAPY TREATMENT NOTE ASSESSMENT: Deborah Lugo tolerated the session with no issues. She demonstrated improvements in dizziness. Noted deficits with cervical soft tissue restriction and deep neck flexor weakness that may be contiruting to episodes of dizziness.. The patient will continue to benefit from ongoing skilled physical therapy to progress toward set goals and goals for neck added this date as listed below.. Planned Treatment Interventions: Therapeutic exercise (31463), Neuromuscular re-education (70159), Therapeutic activities (71962), Canalith Repositioning Maneuvers (71090), Manual therapy (54756)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 symptoms of a viral syndrome are: Fever (temperature higher than 100.4 F or 38 C). Headaches. Fatigue (feeling tired) and body soreness. A clogged-up or runny nose. Sore throat. Cough. Rash. Nausea (feeling sick to the stomach) and vomiting (throwing up). Diarrhea (watery poop). Stomach cramps. Basic care for a viral syndrome is to rest and drink lots of fluids. You will feel better over time. Recommended non-prescription medications by symptom Cough, Non-productive (not coughing up phlegm) - Cough suppressant containing dextromethorphan (Robitussin DM or Delsym ) Cough, Productive (coughing up phlegm) - Cough suppressant (see above) - Expectorant: Mucinex tablets or plain guaifenesin syrup, also known as Robitussin Fever/Headache/Muscle Aches - Acetaminophen (Tylenol ) - Non-Steroidal Anti-Inflammatory Drugs (NSAIDs) such as ibuprofen (Advil ) or naproxen (Aleve ) Nasal Stuffiness Saline nasal spray or a Neti Pot. - Nasal steroid sprays: Flonase or Nasacort - Decongestants: Topical spray: Oxymetazoline (Afrin Nasal [place]); limit to 3-4 days maximum Oral medication: Pseudoephedrine (Sudafed ) - MUST BE PURCHASED FROM PHARMACIST Runny and/or Itchy Nose/Sneezing - Nasal steroid sprays: Flonase or Nasacort - Antihistamine: Benadryl , which will likely cause drowsiness, or Loratadine (Alavert ), which is not as likely to cause drowsiness Sore Throat Pain Relief - Suck on throat lozenges, hard candy or popsicles - Gargle with warm salt water (1/4 tsp. salt per 8 oz. of water); and eat soft, bland foods. - Take acetaminophen (Tylenol ) or ibuprofen (Advil ). - Try throat sprays (Chloraseptic ). Unfortunately, there is still no cure for most viruses. Antibiotics don't work for viral illnesses. Antibiotics may cause side effects like rash or diarrhea (watery poop). Taking antibiotics when they are not needed might stop them from working if you get a bacterial infection later. Some serious infections can feel like a viral syndrome in the first few days. So it is important to watch your symptoms. See your doctor if you feel worse. See your doctor or go to the nearest Emergency Department if you: Have a fever (temperature higher than 100.4 F or 38 C) that won't go away. Have painful headache or stiff neck. Have constant vomiting or diarrhea (watery poop). Feel lightheaded, faint or might pass out. Have trouble breathing or shortness of breath. Feel confused or cannot think clearly. Are weak and cannot walk. Contact your doctor if you have any questions. If you think your symptoms are worse, go to the Emergency Department to be seen by a doctor. documented in this encounter [facility] 09-28-2023 History of Present illness Narrative Subjective Deborah Lugo is a 58 year old female with a past medical history of asthma, hypertension, and depression [facility], nasal congestion, and bodyaches that began about 3 days ago. No fevers. No known exposure to COVID-19, influenza, or RSV. Patient states that she has been using her nebulizer but feels like she needs steroids. Review of Systems Constitutional: Negative for chills, diaphoresis and fever. HENT: Positive for congestion. Negative for ear pain and sore throat. Eyes: Negative for discharge and redness. Respiratory: Positive for cough. Negative for shortness of breath and wheezing. Musculoskeletal: Positive for myalgias. Negative for back pain. Skin: Negative for rash and wound. All other systems reviewed and are negative. Objective Wt 95.7 kg (210 lb 13.9 oz) LMP 03/24/2013 BMI 37.95 kg/m Physical Exam Vitals reviewed. Constitutional: General: She is not in acute distress. Appearance: Normal appearance. She is normal weight. She is not ill-appearing or toxic-appearing. Comments: The patient appears to be non-toxic, in no acute distress, and resting comfortably on the table. HENT: Head: Normocephalic and atraumatic. Eyes: Extraocular Movements: Extraocular movements intact. Cardiovascular: Rate and Rhythm: Normal rate and regular rhythm. Heart sounds: Normal heart sounds. No murmur heard. No friction rub. No gallop. Pulmonary: Effort: Pulmonary effort is normal. No respiratory distress. Breath sounds: Normal breath sounds. No wheezing. Musculoskeletal: General: Normal range of motion. Cervical back: Normal range of motion. Skin: General: Skin is warm and dry. Findings: No erythema or rash. Neurological: General: No focal deficit present. Mental Status: She is alert and oriented to person, place, and time. Mental status is at baseline. Psychiatric: Mood and Affect: Mood normal. Behavior: Behavior normal. Thought Content: Thought content normal. Assessment and Plan Lungs are clear to auscultation bilaterally. Suspect patient's symptoms are due to viral infection. Patient tested for COVID-19, influenza, and RSV. Patient counseled regarding suspected diagnosis and given prescriptions for prednisone and Tessalon Perles. Patient advised to follow-up with primary care as needed for any new or worsening symptoms. ASSESSMENT/PLAN: 1. Viral URI - ICD9: 465.9, ICD10: J06.9 (primary diagnosis) - Discussed viral etiology and rationale for treatment. - Symptomatic treatment with prn analgesia - Supportive care with fluids and rest 2. Acute cough - ICD9: 786.2, ICD10: R05.1 - COVID & INFLUENZA A/B & RSV NAAT, ROUTINE - PREDNISONE 20 MG TABLET - BENZONATATE 100 MG CAPSULE 3. Nasal congestion - ICD9: 478.19, ICD10: R09.81 - COVID & INFLUENZA A/B & RSV NAAT, ROUTINE 4. Myalgias - ICD9: 729.1, ICD10: M79.10 - COVID & INFLUENZA A/B & RSV NAAT, ROUTINE Medical Decision Making: Problems: Low: Acute, uncomplicated illness or injury Risk: Minimal: Minimal risk from testing/treatment Moderate: Drug management Medical Decision Making Level: 3 - Low I spent a total of 20 minutes on the date of the service which included preparing to see the patient, [id number] patient care, completing clinical documentation, performing a medically appropriate examination, counseling and educating the patient/family/caregiver, and ordering medications, tests, or procedures. Celia Riddle PA-C documented in this encounter [facility] 09-02-2023 Miscellaneous Notes S: Patient spoke with [facility] nurse regarding medication refill. B: Medication: Trintellix 20 mg, one tablet, by mouth, every day. A: Patient needs a refill on the above medication and states she has two pills left. Allergies and pharmacy verified. R: Message to physician, please advise. Advised patient office will get back with her once physician reviews the message. She verbalized understanding and has no further needs at this time. Reason for Disposition [1] Prescription refill request for NON-ESSENTIAL medicine (i.e., no harm to patient if med not taken) AND [2] triager unable to refill per department policy Protocols used: Medication Refill and Renewal [id number] documented in this encounter [facility] 09-02-2023 Telephone encounter Note S: Patient spoke with [facility] nurse regarding medication refill. B: Medication: Trintellix 20 mg, one tablet, by mouth, every day. A: Patient needs a refill on the above medication and states she has two pills left. Allergies and pharmacy verified. R: Message to physician, please advise. Advised patient office will get back with her once physician reviews the message. She verbalized understanding and has no further needs at this time. Reason for Disposition [1] Prescription refill request for NON-ESSENTIAL medicine (i.e., no harm to patient if med not taken) AND [2] triager unable to refill per department policy Protocols used: Medication Refill and Renewal [id number] [facility] 02-14-2023 Telephone encounter Note S: Patient spoke with [facility] nurse regarding Pt would Like something called in for thrush. B: Onset of symptoms/concern yesterday A: Pt states thrush on tongue white patches Tongue sore 10 with mild to moderate sore throat. Pt states has been using inhaler on levoFLOXacin 500 mg tablet once a day Started on 02/06/2023. Pt states stopped antibiotic Saturday D/T start of symptoms. Pt denies difficulty swallowing CP shortness of breath and chest tightness at this time. R: Provider paged: Dr Cooper, returned page, provider is calling medication Diflucan into Pharmacy listed. Pt will continue to do mouth wash as directed per care advice and will call back if she has difficulty swallowing develops fever or symptoms worsen. Patient understands care advice. No further needs at this time. TE entered in [facility] at 21:55. Reason for Disposition [1] White patches that stick to tongue or inner cheek AND [2] can be wiped off Receiving chemotherapy or radiation therapy Answer Assessment - Initial Assessment Questions 1. SYMPTOM: What's the main symptom you're concerned about? (e.g., chapped lips, dry mouth, lump, sores) White patches on tongue 2. ONSET: When did the start? Yesterday 3. PAIN: Is there any pain? If Yes, ask: How bad is it? (Scale: 1-10; mild, moderate, severe) - MILD (1-3): doesn't interfere with eating or normal activities - MODERATE (4-7): interferes with eating some solids and normal activities - SEVERE (8-10): excruciating pain, interferes with most normal activities - SEVERE DYSPHAGIA: can't swallow liquids, drooling 5/10 constant 4. CAUSE: What do you think is causing the symptoms? Pt using inhaler 5. OTHER SYMPTOMS: Do you have any other symptoms? (e.g., fever, sore throat, toothache, swelling) Throat 6. : Is there any chance you are ? When was your last menstrual period? LMP: NA Answer Assessment - Initial Assessment Questions 1. DIAGNOSIS CONFIRMATION: When was the influenza diagnosed? By whom? Did you get a test for it? + Result Provider 2. MEDICINES: Were you prescribed any medications for the influenza? (e.g., zanamivir [Relenza], oseltamavir [Tamiflu]). Inhaler and Lefloxin 3. ONSET of SYMPTOMS: When did your symptoms start? 02/06/2023 4. SYMPTOMS: What symptoms are you most concerned about? (e.g., runny nose, stuffy nose, sore throat, cough, breathing difficulty, fever) Cough 5. COUGH: How bad is the cough? Moderate 6. FEVER: Do you have a fever? If Yes, ask: What is your temperature, how was it measured, and when did it start? Denies 7. RESPIRATORY DISTRESS: Are you having any trouble breathing? If Yes, ask: Describe your breathing. Denies 8. FLU VACCINE: Did you receive a flu shot this year? (e.g., seasonal influenza, H1N1) Denies 9. : Is there any chance you are ? When was your last menstrual period? NA 10. HIGH RISK for COMPLICATIONS: Do you have any heart or lung problems? Do you have a weakened immune system? (e.g., CHF, COPD, asthma, HIV positive, chemotherapy, renal failure, diabetes mellitus, sickle cell anemia) Asthma Protocols used: Mouth Ehksmadw-WNSVD-IT, Influenza Follow-up Uqgy-JOOHW-KY [facility] 02-14-2023 Miscellaneous Notes S: Patient spoke with [facility] nurse regarding Pt would Like something called in for thrush. B: Onset of symptoms/concern yesterday A: Pt states thrush on tongue white patches Tongue sore 5/10 with mild to moderate sore throat. Pt states has been using inhaler on levoFLOXacin 500 mg tablet once a day Started on 02/06/2023. Pt states stopped antibiotic Saturday D/T start of symptoms. Pt denies difficulty swallowing CP shortness of breath and chest tightness at this time. R: Provider paged: Dr Cooper, returned page, provider is calling medication Diflucan into Pharmacy listed. Pt will continue to do mouth wash as directed per care advice and will call back if she has difficulty swallowing develops fever or symptoms worsen. Patient understands care advice. No further needs at this time. TE entered in [facility] at 21:55. Reason for Disposition [1] White patches that stick to tongue or inner cheek AND [2] can be wiped off Receiving chemotherapy or radiation therapy Answer Assessment - Initial Assessment Questions 1. SYMPTOM: What's the main symptom you're concerned about? (e.g., chapped lips, dry mouth, lump, sores) White patches on tongue 2. ONSET: When did the start? Yesterday 3. PAIN: Is there any pain? If Yes, ask: How bad is it? (Scale: 1-10; mild, moderate, severe) - MILD (1-3): doesn't interfere with eating or normal activities - MODERATE (4-7): interferes with eating some solids and normal activities - SEVERE (8-10): excruciating pain, interferes with most normal activities - SEVERE DYSPHAGIA: can't swallow liquids, drooling 5/10 constant 4. CAUSE: What do you think is causing the symptoms? Pt using inhaler 5. OTHER SYMPTOMS: Do you have any other symptoms? (e.g., fever, sore throat, toothache, swelling) Throat 6. : Is there any chance you are ? When was your last menstrual period? LMP: NA Answer Assessment - Initial Assessment Questions 1. DIAGNOSIS CONFIRMATION: When was the influenza diagnosed? By whom? Did you get a test for it? + Result Provider 2. MEDICINES: Were you prescribed any medications for the influenza? (e.g., zanamivir [Relenza], oseltamavir [Tamiflu]). Inhaler and Lefloxin 3. ONSET of SYMPTOMS: When did your symptoms start? 02/06/2023 4. SYMPTOMS: What symptoms are you most concerned about? (e.g., runny nose, stuffy nose, sore throat, cough, breathing difficulty, fever) Cough 5. COUGH: How bad is the cough? Moderate 6. FEVER: Do you have a fever? If Yes, ask: What is your temperature, how was it measured, and when did it start? Denies 7. RESPIRATORY DISTRESS: Are you having any trouble breathing? If Yes, ask: Describe your breathing. Denies 8. FLU VACCINE: Did you receive a flu shot this year? (e.g., seasonal influenza, H1N1) Denies 9. : Is there any chance you are ? When was your last menstrual period? NA 10. HIGH RISK for COMPLICATIONS: Do you have any heart or lung problems? Do you have a weakened immune system? (e.g., CHF, COPD, asthma, HIV positive, chemotherapy, renal failure, diabetes mellitus, sickle cell anemia) Asthma Protocols used: Mouth Yfdtodeo-MKVBP-PY, Influenza Follow-up Esbi-HALAZ-RX documented in this encounter [facility] 02-07-2023 History of Present illness Narrative Radiology Service Progress Note PATIENT NAME: Deborah Lugo DATE OF SERVICE: February 07, 2023 TIME: 2:47 PM PATIENT IDENTITY VERIFICATION COMPLETED USING TWO (2) IDENTIFIERS: Name and Date of confirmed by patient verbally. FALL SCREENING: Has the patient had 2 falls in the last year or 1 fall with injury or currently using an Ambulatory Assistive Device (Walker, Cane, Wheelchair, Crutches, etc.)? No PATIENT GENDER DATA: Female. status: : No status: NO. PATIENT RELEVANT IMPLANT DATA REVIEWED: Not Applicable RADIOLOGY DEPARTMENT: General X-ray: Exam(s) Completed: Rib X-Ray: Left PERIPHERAL IV DATA: Not applicable SIGNED BY: RT Lola(R) February 07, 2023 2:47 PM documented in this encounter [facility] 12-12-2022 Telephone encounter Note S Patient calling with uti symptoms B A Seen today, forgot to mention having start of UTI symptoms. Urgency and hesitancy. Requesting abx R Advised she would need UA, advised to call office first thing tomorrow to see if they can get her scheduled for lab visit to run her urine. TE sent to office for review. Reason for Disposition Urinating more frequently than usual (i.e., frequency) Protocols used: Urinary Oqfgpwus-VWXJP-ZC [facility] 12-12-2022 Miscellaneous Notes S Patient calling with uti symptoms B A Seen today, forgot to mention having start of UTI symptoms. Urgency and hesitancy. Requesting abx R Advised she would need UA, advised to call office first thing tomorrow to see if they can get her scheduled for lab visit to run her urine. TE sent to office for review. Reason for Disposition Urinating more frequently than usual (i.e., frequency) Protocols used: Urinary Ywtrmpgf-CYDVY-TV documented in this encounter [facility] 10-03-2022 Note [facility] Pap Smear Specimen Adequacy October 03, 2022 2:43pm Comment . Satisfactory for evaluation. Endocervical component may not bedistinguished in cases of atrophy. Comment on above: Satisfactory for maury luation. Endocervical component may not bedistinguished in cases of atrophy. 04-15-2022 Instructions Celia Riddle PA-C - 04/15/2022 1:01 PM EST [facility] PATIENT INFO ACUTE SINUSITIS OVERVIEW Rhinosinusitis, or more commonly sinusitis, is the medical term for inflammation (swelling) of the lining of the sinuses and nose. The sinuses are the hollow areas within the facial bones that are connected to the nasal openings. The sinuses are lined with mucous membranes, similar to the inside of the nose. There are two main types of sinusitis: acute and chronic. Acute sinusitis is inflammation that lasts for less than four weeks while chronic sinusitis lasts for more than 12 weeks. Acute sinusitis is common, affecting approximately one million people per year in the [place]. ACUTE SINUSITIS CAUSES The most common cause of acute sinusitis is a viral infection associated with the common cold. Bacterial sinusitis occurs much less commonly, in only 0.5 to 2 percent of cases, usually as a complication of viral sinusitis. Because antibiotics are effective only against bacterial, and not viral, infections, most people do not need antibiotics for acute sinusitis. ACUTE SINUSITIS SYMPTOMS Symptoms of acute sinusitis include: Nasal congestion or blockage Thick, yellow to green discharge from the nose Pain in the teeth Pain or pressure in the face that is worse when bending forwards Other acute sinusitis symptoms can include fever (temperature greater than 100.4 F or 38 C), fatigue, cough, difficulty or inability to smell, ear pressure or fullness, headache, and bad breath. In most cases, these symptoms develop over the course of one day and begin to improve within seven to 10 days. DO I NEED TO BE EXAMINED? It is difficult to know if you have a viral or bacterial sinus infection initially. However, most people with a viral infection improve without treatment within seven to 10 days after symptoms begin. Bacterial sinusitis also sometimes improves without treatment, although it can also worsen and require treatment. If one or more of the following bothersome symptoms last more than seven days, an examination by a healthcare provider is recommended: Thick, yellow to green discharge from the nose Face or tooth pain, especially if it is only on one side Tenderness over the maxillary sinuses (located on the left and right side of the nose, inside the cheekbones) Symptoms that initially improve and then worsen When to seek immediate help -- If you have one or more of the following symptoms, you should seek medical attention immediately (even if symptoms have been present for less than seven days): High fever (>102.5 F or 39.2 C) Sudden, severe pain in the face or head Double vision or difficulty seeing Confusion or difficulty thinking clearly Swelling or redness around one or both eyes Stiff neck, shortness of breath ACUTE SINUSITIS TREATMENT Initial treatment of a sinus infection aims to relieve symptoms since almost everyone will improve within the first seven to 10 days. Experts recommend avoiding antibiotics during this time unless there is clear evidence of a severe bacterial infection. Initial treatment Pain relief -- Non-prescription pain medications, such as acetaminophen (eg, Tylenol ) or ibuprofen (eg, Motrin , Advil ) are recommended for pain. Nasal irrigation and saline sprays -- Rinsing the nose with a salt-water (saline) solution is called nasal irrigation or nasal lavage. Saline is also available in a standard nasal spray, although this is not as effective as using larger amounts of water in an irrigation. Nasal irrigation is particularly useful for treating drainage down the back of the throat, sneezing, nasal dryness, and congestion. The treatment helps by rinsing out allergens and irritants from the nose. Saline rinses also clean the nasal lining and can be used before applying sprays containing medications, to get a better effect from the medication. Nasal lavage with warmed saline can be performed as needed, once per day, or twice daily for increased symptoms. Nasal lavage carries few risks when performed correctly. Saline nasal sprays and irrigation kits can be purchased [id number]. Saline mixes can also be purchased or patients can make their own solution. A variety of devices, including bulb syringes, Neti pots, and bottle sprayers, may be used to perform nasal lavage; instructions for nasal lavage are provided in the table. At least 200 mL (about 3/4 cup) of fluid is recommended for each nostril. Nasal decongestants -- Nasal decongestant sprays, including oxymetazoline (Afrin ) and phenylephrine (Kevin-synephrine ) can be used to temporarily treat congestion. However, these sprays should not be used for more than two to three days due to the risk of rebound congestion (when the nose is congested constantly unless the medication is used repeatedly). Other treatments -- Other treatments for congestion, such as oral antihistamines (such as diphenhydramine/Benadryl ) or zinc supplements are not proven to improve symptoms of sinusitis and can have unwanted side effects. Medications to thin secretions (such as guaifenesin) may help to clear mucus. Secondline treatment -- If symptoms have not improved in seven to ten days, you should arrange for medical evaluation. You may need further treatment. Nasal glucocorticoids -- Nasal glucocorticoids (steroids delivered by a nasal spray) can help to reduce swelling inside the nose, usually within two to three days. These drugs have few side effects and dramatically relieve symptoms in most people. There are a number of nasal glucocorticoids available by prescription. These drugs are all effective, but differ in how frequently they must be used and how much they cost. You may need to use a nasal decongestant for a few days before starting a nasal glucocorticoid to reduce nasal swelling; this will allow the nasal glucocorticoid to reach more areas of the nasal passages Do I need an antibiotic? -- If bothersome symptoms of sinusitis persist for 10 or more days, it is possible that you have bacterial sinusitis. The need for antibiotics depends upon the severity of your symptoms. Mild symptoms -- There are two possible treatment options if you have mild sinusitis symptoms: treat with antibiotics or continue to watch and wait for one week. Watching and waiting is a reasonable option because up to 75 percent of people with bacterial sinusitis improve within one month without antibiotics. During the watch and wait period, treatments to improve symptoms are recommended. If symptoms worsen or do not improve after watching and waiting, treatment with an antibiotic is usually recommended. Treatments to relieve symptoms are recommended while using antibiotics. Moderate or severe symptoms -- Most healthcare providers will prescribe an antibiotic for moderate to severe symptoms (temperature >38.3 C or 101 F and/or severe pain that interferes with usual activities). Treatments to relieve symptoms are also recommended during antibiotic treatment. One of the least expensive and most effective antibiotics for sinusitis is amoxicillin. An alternate antibiotic will be prescribed if you are allergic to penicillin. Regardless of which antibiotic is prescribed, it is important to follow the dosing instructions carefully and to finish the entire course of treatment. Taking the medication less often than prescribed or stopping the medication early can lead to complications, such as a recurrent infection. What if I do not improve with treatment? -- If you do not improve or worsen after a course of antibiotics, you should be re-examined. In some cases, symptoms of sinusitis improve but then recur. This is usually because the infection was not completely eliminated by the antibiotic. An alternate antibiotic, extended antibiotic treatment, and/or further testing may be recommended, depending upon your individual situation. documented in this encounter [facility] 04-15-2022 History of Presen t illness Narrative Subjective Deborah Lugo is a 57 year old female with a past medical history of hypertension, asthma, and depression who presents to [facility] today for evaluation of nasal congestion, sinus pressure, and sinus pain x1 week. She denies any fevers. No known exposure to COVID-19 or influenza. She has been taking Mucinex and Flonase with some relief. Review of Systems Constitutional: Negative for chills, diaphoresis and fever. HENT: Positive for congestion, sinus pressure and sinus pain. Negative for ear pain. Eyes: Negative for discharge and redness. Respiratory: Negative for cough and shortness of breath. Skin: Negative for rash and wound. Neurological: Negative for weakness and headaches. All other systems reviewed and are negative. Objective BP 147/78 (BP Site: Left Arm, BP Position: Sitting, BP Cuff Size: Regular Adult) Pulse 87 Temp 37.4 C (99.4 F) Ht 158.8 cm (5' 2.5) Wt 95.7 kg (211 lb) LMP 03/24/2013 SpO2 96% BMI 37.98 kg/m Physical Exam Vitals reviewed. Constitutional: General: She is not in acute distress. Appearance: Normal appearance. She is normal weight. She is not ill-appearing or toxic-appearing. Comments: The patient appears to be non-toxic, in no acute distress, and resting comfortably on the table. HENT: Head: Normocephalic and atraumatic. Right Ear: Ear canal and external ear normal. A middle ear effusion is present. Left Ear: Tympanic membrane, ear canal and external ear normal. Nose: Congestion present. Right Sinus: Maxillary sinus tenderness and frontal sinus tenderness present. Left Sinus: Maxillary sinus tenderness and frontal sinus tenderness present. Mouth/Throat: Mouth: Mucous membranes are moist. Pharynx: Oropharynx is clear. No oropharyngeal exudate or posterior oropharyngeal erythema. Eyes: Extraocular Movements: Extraocular movements intact. Cardiovascular: Rate and Rhythm: Normal rate and regular rhythm. Heart sounds: Normal heart sounds. No murmur heard. No friction rub. No gallop. Pulmonary: Effort: Pulmonary effort is normal. No respiratory distress. Breath sounds: Normal breath sounds. No wheezing. Musculoskeletal: General: Normal range of motion. Cervical back: Normal range of motion. Skin: General: Skin is warm and dry. Findings: No erythema or rash. Neurological: General: No focal deficit present. Mental Status: She is alert and oriented to person, place, and time. Mental status is at baseline. Psychiatric: Mood and Affect: Mood normal. Behavior: Behavior normal. Thought Content: Thought content normal. Assessment and Plan History and exam are consistent with acute bacterial sinusitis. Patient counseled guarding suspected diagnosis and given prescription for Augmentin. Patient advised to continue using Mucinex and Flonase at home and follow-up with her primary care provider as needed for any new or worsening symptoms. ASSESSMENT/PLAN: 1. Bacterial sinusitis - ICD9: 473.9, 041.9, ICD10: J32.9, B96.89 (primary diagnosis) - AMOXICILLIN 875 MG-POTASSIUM CLAVULANATE 125 MG TABLET 2. Nasal congestion - ICD9: 478.19, ICD10: R09.81 - COVID WITH FLUA+B, ROUTINE 3. Sinus pressure - ICD9: 478.19, ICD10: J34.89 - COVID WITH FLUA+B, ROUTINE Medical Decision Making: Problems: Low: Acute, uncomplicated illness or injury Risk: Minimal: Minimal risk from testing/treatment Moderate: Drug management Medical Decision Making Level: 3 - Low I spent a total of 20 minutes on the date of the service which included preparing to see the patient, [id number] patient care, completing clinical documentation, performing a medically appropriate examination, counseling and educating the patient/family/caregiver, and ordering medications, tests, or procedures. documented in this encounter [facility] 02-08-2022 Miscellaneous Notes Formattin g of this note might be different from the original. Called pt left with results and for her to call the office with any questions Devorah Cotton MA ----- Message from Toan Gurrola APRN.AUTOMATION SALES MANAGER sent at 02/08/2022 6:53 AM EST ----- B12 wnl documented in this encounter [facility] 02-07-2022 Miscellaneous Notes Formattin g of this note might be different from the original. Called pt left VM with results Devorah Cotton MA ----- Message from Toan Gurrola APRN.AUTOMATION SALES MANAGER sent at 02/07/2022 3:02 PM EST ----- Tsh wnl Bmp unremarkable ----- Message from Toan Gurrola APRN.AUTOMATION SALES MANAGER sent at 02/07/2022 2:55 PM EST ----- CBC normal no anemia or infection documented in this encounter [facility] 02-07-2022 Instructions Toan Gurrola APRN.AUTOMATION SALES MANAGER - 02/07/2022 1:54 PM EST ASSESSMENT/PLAN: 1. Fatigue, unspecified type - ICD9: 780.79, ICD10: R53.83 (primary diagnosis) - acute since recent URI. - VITAMIN B12 BLOOD - TSH BLD - CBC - BASIC METABOLIC PNL 2. Environmental allergies - ICD9: V15.09, ICD10: Z91.09 - chronic, start azelastine - AZELASTINE 137 MCG (0.1 %) NASAL SPRAY AEROSOL 3. Mild intermittent asthma with acute exacerbation - ICD9: 493.92, ICD10: J45.21 Mild intermittent Asthma stable - Continue current meds - Avoidance of triggers recommended documented in this encounter [facility] 02-07-2022 History of Presen t illness Narrative This note was created using Kip[employer]. Subjective Deborah Lugo is a 56 year old female here today for acute visit of fatigue. PMH HTN, psoriasis, asthma, depression. She was recently seen and treated in [place] [facility] on 01/26/22 for URI. She was dx with tension [place] and left Otitis media. Pt states she did not have an ear infection and was not given any medication for this. She was treated with Augmentin from her learning operations specialist prior to ER. She was also seen in walk in clinic on 01/18/22 for complaints of sob and wheezing prior to ER. Dx viral URI. Negative covid and flu. She was given prednisone, albuterol and guaifenesin. She reports she feels better but states she just does not have any energy. Reports constant fatigue. She would like lab work. Reports occasional wheezing but is improved. Denies fever, cough, sob. Difficulty breathing Chest xray 01/24/22 IMPRESSION: No acute radiographic abnormality. ALLERGIES Allergen Reactions Kiara Inhibitors Other: See Comments Facial swelling Adhesive Unknown Adhesive Tape (Imani* Rash Latex Unknown Lisinopril Unknown Seasonal Allergies Intolerance Sulfa (Sulfonamide * Hives Current Outpatient Medications Medication Sig Dispense Refill amoxicillin-clavulanic acid (AUGMENTIN) 875-125 mg per tablet Take 1 tablet by mouth every 12 hours. albuterol (PROVENTIL) 5 mg/mL nebu INHALE 0.5 ML INSTRUCTED EVERY 6 HOURS NEEDED FOR WHEEZING/SHORTNESS OF BREATH. 20 mL 0 Ukauqllsjspsfad-Qbyjnhmnd-KK (BROMFED DM) 2-30-10 mg/5 mL syrup Take 5 mL by mouth four times daily as needed. 118 mL 0 guaiFENesin (MUCINEX) 600 mg 12 hr tablet Take 1-2 tablets by mouth twice daily. 30 tablet 0 ibuprofen (MOTRIN) 600 mg tablet Take 1 tablet by mouth every 6 hours as needed for pain. 90 tablet 1 vortioxetine (TRINTELLIX) 10 mg tablet Take 1 tablet by mouth once daily. 90 tablet 1 losartan (COZAAR) 50 mg tablet Take 1 tablet by mouth once daily. 90 tablet 1 benzonatate (TESSALON PERLE) 100 mg capsule Take 1 capsule by mouth three times daily as needed. 30 capsule 0 fluticasone (FLONASE ALLERGY RELIEF) 50 mcg/actuation nasal spray Use 1 [place] in each nostril once daily. 1 Each 5 tacrolimus (PROTOPIC) 0.1 % ointment APPLY TOPICALLY TO AFFECTED AREA ONCE EVERY MORNING clobetasol (TEMOVATE) 0.05 % ointment APPLY TO AFFECTED AREAS ONCE A DAY AT NIGHT TIME EXTERNALLY 14 DAY(S) albuterol HFA (PROAIR HFA) 90 mcg/actuation inhaler Inhale 2 Puffs as instructed every 4 hours as needed for Wheezing/Shortness of Breath. 18 g 5 Blood Pressure Monitor 1 Each as directed. 1 Kit 0 albuterol (PROVENTIL) 2.5 mg /3 mL (0.083 %) nebulizer solution Use 3 mL via nebulizer every 6 hours as needed for Wheezing/Shortness of Breath. 100 Vial 0 EPINEPHrine (ADRENACLICK) 0.3 mg/0.3 mL auto-injector Use as directed MULTIVIT &MINERALS/FERROUS FUM (MULTI VITAMIN ORAL) Take 1 tablet by mouth once daily. cyanocobalamin (VITAMIN B-12) 100 mcg tab Take 100 mcg by mouth once daily. Cholecalciferol, Vitamin D3, (VITAMIN D) 1,000 unit tab Take 1,000 Units by mouth once daily. No current facility-administered medications for this visit. ACTIVE PROBLEM LIST Depression Psoriasis Allergic Reaction Benign Essential Hypertension Foot Sprain Sprain of Right Ankle Eczema Environmental Allergies Mild Intermittent Asthma With Acute Exacerbation PAST MEDICAL HISTORY Diagnosis Date Acute sinusitis - Resolved Allergic rhinitis Benign essential hypertension Breast lump - Lt. '98; R '05 Cobalamin deficiency Depression Hyperlipidemia Psoriatic arthritis (HCC) Seasonal allergies Transfusion history PPH with first delivery Urticaria PAST SURGICAL HISTORY Procedure Laterality Date BREAST BIOPSY R benign LAPAROSCOPY DIAGNOSTIC with PAMELA & TL PAST SURGICAL HISTORY OF Left Sebaceous cyst surgery - L breast PAST SURGICAL HISTORY OF 1998 Tubal ligation PAST SURGICAL HISTORY OF Laparotomy, exploration- pelvic cyst and adhesions; Dr. Rahman SKIN LESION BIOPSY left chest wall lipoma Social History Tobacco Use Smoking status: Former Types: Cigarettes Quit date: 10/09/1992 Years since quittin.3 Smokeless tobacco: Never Vaping Use Vaping Use: Never used Substance Use Topics Alcohol use: Yes Comment: social Drug use: No Family History Problem Relation Age of Onset other (HTN) Mother other (DM2) Mother other (M I) Mother 50 Cancer Father leukemia other (HTN) Father other (DM2) Father other (MDS) Father Ovarian cancer Paternal Grandmother other (Diabetes mellitus) Other colon/prostate CA other (Heart disease) Other Hypertension Other other (M I) Paternal Grandfather Review of Systems Constitutional: Positive for fatigue. Negative for chills and fever. HENT: Negative for congestion, ear pain, postnasal drip, rhinorrhea, sinus pressure, sinus pain, sneezing, sore throat and trouble swallowing. Respiratory: Negative for cough, chest tightness, shortness of breath and wheezing. Cardiovascular: Negative for chest pain, palpitations and leg swelling. Gastrointestinal: Negative for diarrhea, nausea and vomiting. Poor appetite but improved. Allergic/Immunologic: Positive for environmental allergies. Chronic, post nasal drip Neurological: Negative for dizziness, light-headedness and headaches. Objective 02/07/22 1317 BP: 122/78 BP Site: Right Arm BP Position: Sitting BP Cuff Size: Large Adult Pulse: 78 Resp: 18 Temp: 36.7 C (98 F) TempSrc: Oral SpO2: 99% Weight: 97.5 kg (215 lb) Height: 158.8 cm (5' 2.5) Physical Exam Vitals and nursing note reviewed. Constitutional: General: She is not in acute distress. Appearance: Normal appearance. She is obese. She is not ill-appearing. HENT: Head: Normocephalic and atraumatic. Right Ear: Tympanic membrane, ear canal and external ear normal. Left Ear: Tympanic membrane, ear canal and external ear normal. Nose: No congestion or rhinorrhea. Mouth/Throat: Pharynx: Oropharynx is clear. No oropharyngeal exudate or posterior oropharyngeal erythema. Cardiovascular: Rate and Rhythm: Normal rate and regular rhythm. Pulses: Normal pulses. Heart sounds: Normal heart sounds. No murmur heard. Pulmonary: Effort: Pulmonary effort is normal. No respiratory distress. Breath sounds: Normal breath sounds. No wheezing, rhonchi or rales. Skin: General: Skin is warm and dry. Neurological: Mental Status: She is alert and oriented to person, place, and time. Psychiatric: Mood and Affect: Mood normal. Behavior: Behavior normal. Thought Content: Thought content normal. Judgment: Judgment normal. Component Latest Ref Rng & Units 09/16/2021 Protein, Total 6.3 - 8.0 g/dL 7.4 Albumin 3.9 - 4.9 g/dL 4.2 Calcium 8.5 - 10.2 mg/dL 8.9 Bilirubin, Total 0.2 - 1.3 mg/dL 0.2 Alkaline Phosphatase 34 - 123 U/L 105 AST 13 - 35 U/L 12 (L) ALT 7 - 38 U/L 11 Glucose 74 - 99 mg/dL 106 (H) BUN 7 - 21 mg/dL 12 Creatinine 0.58 - 0.96 mg/dL 0.75 Sodium 136 - 144 mmol/L 138 Potassium 3.7 - 5.1 mmol/L 4.0 Chloride 97 - 105 mmol/L 103 CO2 22 - 30 mmol/L 27 Anion Gap 9 - 18 mmol/L 8 (L) eGFR >=60 mL/min/1.73m 93 WBC 3.70 - 11.00 k/uL 6.34 RBC 3.90 - 5.20 m/uL 4.38 Hemoglobin 11.5 - 15.5 g/dL 12.2 Hematocrit 36.0 - 46.0 % 37.7 MCV 80.0 - 100.0 fL 86.1 MCH 26.0 - 34.0 pg 27.9 MCHC 30.5 - 36.0 g/dL 32.4 RDW-CV 11.5 - 15.0 % 14.1 Platelet Count 150 - 400 k/uL 250 MPV 9.0 - 12.7 fL 11.3 Cholesterol, Total <200 mg/dL 174 Triglyceride <150 mg/dL 82 HDL Cholesterol >39 mg/dL 46 Non HDL Cholesterol <130 mg/dL 128 Fasting Time hrs 12 VLDL Cholesterol <30 mg/dL 16 TC:HDL Ratio <5.10 3.78 LDL Cholesterol <100 mg/dL 112 (H) LDL:HDL Ratio <2.54 2.43 TSH 0.270 - 4.200 mIU/L 1.050 ASSESSMENT/PLAN: 1. Fatigue, unspecified type - ICD9: 780.79, ICD10: R53.83 (primary diagnosis) - acute since recent URI. Support provided. Discussed that fatigue can last for 2-3 wks after viral illness. Pt requesting labs. - VITAMIN B12 BLOOD - TSH BLD - CBC - BASIC METABOLIC PNL 2. Environmental allergies - ICD9: V15.09, ICD10: Z91.09 - chronic, start azelastine - AZELASTINE 137 MCG (0.1 %) NASAL SPRAY AEROSOL 3. Mild intermittent asthma with acute exacerbation - ICD9: 493.92, ICD10: J45.21 Mild intermittent Asthma stable, no acute distress/exacerbation - Continue current meds - Avoidance of triggers recommended Toan Gurrola APRN.CNP documented in this encounter [facility] 01-31-2022 History of Presen t illness Narrative ED Follow Up: [facility] 01[facility]26[facility]22. 1. How are you feeling since your ED visit? Left message inquiring how patient is doing since recent ER visit and recommended calling back if she needs anything. Have your symptoms improved or resolved? Left message 2. Were you prescribed any medications while in the ED or advised to stop any medication? Left message - If yes, were you able to fill your prescriptions? Left message -if stopped medication, what was the medication? Left message 3. Were you advised to schedule a follow up appointment with your provider? Left mesage - If no, Do you feel like you need an appointment scheduled? Left message - If yes, Do you need this scheduled now or has this already been scheduled? Left message 4. Were you able to contact the office or personal coach provider prior to your ED visit? left message 5. Is there anything else I can do for you today? Left message Massiel Amaya MA documented in this encounter [facility] 01-27-2022 Miscellaneous Notes Formattin g of this note might be different from the original. Pt went to ER Patient left message stating she has been sick for two weeks and has gone to urgent care once and her allergy/asthma doctor once and is on antibiotics and prednisone but is not feeling any better. States she is very fatigued and just not herself. States she did schedule for 02/07/22 with you but that was the first available and wanted to know if any bloodwork or anything could be done before her appointment. Please advise. Massiel Amaya MA documented in this encounter [facility] 01-23-2022 Miscellaneous Notes Formattin g of this note might be different from the original. Radiology Service Progress Note PATIENT NAME: Deborah Lugo DATE OF SERVICE: January 23, 2022 TIME: 5:36 PM PATIENT IDENTITY VERIFICATION COMPLETED USING TWO (2) IDENTIFIERS: Name and Date of confirmed by patient verbally. FALL SCREENING: Has the patient had 2 falls in the last year or 1 fall with injury or currently using an Ambulatory Assistive Device (Walker, Cane, Wheelchair, Crutches, etc.)? No PATIENT GENDER DATA: Female. status: : No status: NO. PATIENT RELEVANT IMPLANT DATA REVIEWED: Not Applicable RADIOLOGY DEPARTMENT: General X-ray: Exam(s) Completed: Chest X-Ray PERIPHERAL IV DATA: Not applicable SIGNED BY: RT Sean(R) January 23, 2022 5:36 PM documented in this encounter [facility] 01-22-2022 Miscellaneous Notes Formattin g of this note might be different from the original. Birthday verified with patient over the phone. Aware that lab didn't process rsv because we typically don't test outpatient adults. Sometimes it gets pushed through but it did not this time. No further questions. Patient called in looking for results on her recent RSV test in [facility]. Please contact patient, thank you. documented in this encounter [facility] 01-18-2022 Miscellaneous Notes Addended by: ESSIE GEE on: 01/18/2022 03:08 PM Modules accepted: Orders Addended by: TIMMY LEMUS on: 01/18/2022 03:06 PM Modules accepted: Orders documented in this encounter [facility] 01-18-2022 Instructions Timmy Lemus APRN.CNP - 01/18/2022 3:03 PM EDT ------- UPPER RESPIRATORY INFECTIONS Most cases are caused by viruses and most cases are mild, temporary, and harmless. Symptoms can last 2 to 3 weeks and can include: nasal congestion, sore throat, coughing, muscles aches, headaches, nausea, diarrhea, fatigue and fever. Now that you have been examined, if you are not feeling better within 2-3 weeks, please call back. In the meantime, please: 1. Drink plenty of fluids. 2. Get lots of rest. 3. Avoid dehydrants such as caffeine and alcohol. 4. Nasal saline is an effective decongestant and be used frequently throughout the day. 5. To loosen phlegm and help coughing, drink plenty of fluids and using a humidifier. 6. For sore throats, it is ok to use cough drops, throat sprays, or gargling warm salt water. 7. Always cover your mouth when you cough or sneeze, and wash your hands frequently. Avoid crowded areas like shopping centers, movies while you are sick so you don't excelsior picker a different virus, or infect others. 8. Avoid exposure to cigarettes or fumes. 9. Avoid irritants such as potpourri, dust, perfumes, scented candles and scented sprays 10. Air conditioning is an effective allergen and irritant avoidance strategy in the spring, summer and fall. 11. Honey is an effective cough suppressant. Try one tsp two to three times per day. The below information is from [employer]: Antibiotics Will rarely help an upper respiratory infections. Antibiotics lead to more resistant infections that are harder to treat. There is little to no benefit to taking antibiotics for most acute upper respiratory tract infections. documented in this encounter [facility] 01-18-2022 History of Presen t illness Narrative This note was created using [employer]. Subjective Deborah Lugo is a 56 year old female. HPI by patient: Deborah is a 56 yo female presenting to the office with the complaint of SOB and wheezing Started approximately Saturday Associated symptoms include runny nose, sinus drainage, cough, wheezing, SOB, sore throat Denies fever or chills Vaccinated for influenza: no Covid Immunization Dates Postponed - COVID-19 VACCINE (4 - Booster for Pfizer series) Postponed until 09/11/2022 09/11/2021 Postponed until 09/11/2022 by Devorah Cotton MA (Declined at this time) 04/08/2021 Imm Admin: COVID-19 vaccine, age 12+ yr (PFIZER-BIONTECH - HORTON TOP) 09/16/2020 Imm Admin: COVID-19 vaccine, age 12+ yr (PFIZER-BIONTECH - PURPLE TOP) 08/13/2020 Imm Admin: COVID-19 vaccine, age 12+ yr (PFIZER-BIONTECH - PURPLE TOP) Personal history of Covid: No Flu/RSV contacts: no Strep contacts: no 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 ALLERGIES Kiara Inhibitors Other: See Comments Comment: Facial swelling Adhesive Unknown Adhesive Tape (Imani* Rash Latex Unknown Lisinopril Unknown Seasonal Allergies Intolerance Sulfa (Sulfonamide * Hives Family History Reviewed Including Cardiac Diseases, Psychiatric Diseases, & Substance Abuse Problem: other (HTN) Relation: Mother Age of Onset: (Not Specified) Problem: other (DM2) Relation: Mother Age of Onset: (Not Specified) Problem: other (M I) Relation: Mother Age of Onset: 50 Problem: Cancer Relation: Father Age of Onset: (Not Specified) Comment: leukemia Problem: other (HTN) Relation: Father Age of Onset: (Not Specified) Problem: other (DM2) Relation: Father Age of Onset: (Not Specified) Problem: other (MDS) Relation: Father Age of Onset: (Not Specified) Problem: Ovarian cancer Relation: Paternal Grandmother Age of Onset: (Not Specified) Problem: other (Diabetes mellitus) Relation: Other Age of Onset: (Not Specified) Comment: colon/prostate CA Problem: other (Heart disease) Relation: Other Age of Onset: (Not Specified) Problem: Hypertension Relation: Other Age of Onset: (Not Specified) Problem: other (M I) Relation: Paternal Grandfather Age of Onset: (Not Specified) Social History Tobacco Use Smoking status: Former Types: Cigarettes Quit date: 10/09/1992 Years since quittin.2 Smokeless tobacco: Never Vaping Use Vaping Use: Never used Alcohol use: Yes Comment: social Drug use: No Review of Systems Constitutional: Negative for chills and fever. HENT: Positive for congestion, postnasal drip, rhinorrhea and sore throat. Negative for ear pain. Respiratory: Positive for cough, shortness of breath and wheezing. Cardiovascular: Negative for chest pain. Allergic/Immunologic: Negative for immunocompromised state. Hematological: Negative for adenopathy. Objective LMP 03/24/2013 Physical Exam Vitals and nursing note reviewed. HENT: Right Ear: Tympanic membrane and ear canal normal. Left Ear: Tympanic membrane and ear canal normal. Nose: Congestion and rhinorrhea present. Mouth/Throat: Pharynx: Uvula midline. Posterior oropharyngeal erythema present. No oropharyngeal exudate. Cardiovascular: Rate and Rhythm: Normal rate and regular rhythm. Heart sounds: Normal heart sounds. Pulmonary: Effort: Pulmonary effort is normal. No respiratory distress. Breath sounds: Normal breath sounds. No stridor. No wheezing, rhonchi or rales. Chest: Chest wall: No tenderness. Lymphadenopathy: Cervical: No cervical adenopathy. Skin: General: Skin is warm and dry. Neurological: Mental Status: She is alert and oriented to person, place, and time. Assessment and Plan ASSESSMENT/PLAN: 1. Acute cough - ICD9: 786.2, ICD10: R05.1 (primary diagnosis) - ROUTINE FLU A/B + RSV - 2019 CORONAVIRUS - ROUTINE FLU A/B + RSV - GUAIFENESIN ER 600 MG TABLET, EXTENDED RELEASE 12 HR 2. SOB (shortness of breath) - ICD9: 786.05, ICD10: R06.02 - PREDNISONE 10 MG TABLET 3. Viral URI - ICD9: 465.9, ICD10: J06.9 - Discussed viral etiology and rationale for treatment. - Symptomatic treatment with prn analgesia - Supportive care with fluids and rest - [id number] 2 MG-30 MG-10 MG/5 ML ORAL SYRUP Timmy Lemus APRN.CNP Medical Decision Making: Problems: Moderate: New problem with uncertain prognosis Data: Unique test(s) ordered: 1 Risk: Moderate: Drug management Medical Decision Making Level: 4 - Moderate This patient encounter involved the screening or treatment of novel coronavirus infection (COVID-19). documented in this encounter [facility] 12-15-2021 History of Presen t illness Narrative Images from the original note were not included. 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 Compliant. Satisfied. Surprised with her success. Past Medical History ACTIVE PROBLEM LIST Depression Psoriasis Allergic Reaction Benign Essential Hypertension Foot Sprain Sprain of Right Ankle Eczema Environmental Allergies Mild Intermittent Asthma With Acute Exacerbation Past Surgical History PAST SURGICAL HISTORY Procedure Laterality Date BREAST BIOPSY R benign LAPAROSCOPY DIAGNOSTIC with PAMELA & TL PAST SURGICAL HISTORY OF Left Sebaceous cyst surgery - L breast PAST SURGICAL HISTORY OF 1998 Tubal ligation PAST SURGICAL HISTORY OF Laparotomy, exploration- pelvic cyst and adhesions; Dr. Rahman SKIN LESION BIOPSY left chest wall lipoma Medications Current Outpatient Medications Medication Sig Dispense Refill ibuprofen (MOTRIN) 600 mg tablet Take 1 tablet by mouth every 6 hours as needed for pain. 90 tablet 1 predniSONE (DELTASONE) 20 mg tablet Take 2 tablets by mouth once daily. 10 tablet 0 vortioxetine (TRINTELLIX) 10 mg tablet Take 1 tablet by mouth once daily. 90 tablet 1 losartan (COZAAR) 50 mg tablet Take 1 tablet by mouth once daily. 90 tablet 1 benzonatate (TESSALON PERLE) 100 mg capsule Take 1 capsule by mouth three times daily as needed. 30 capsule 0 fluticasone (FLONASE ALLERGY RELIEF) 50 mcg/actuation nasal spray Use 1 [place] in each nostril once daily. 1 Each 5 tacrolimus (PROTOPIC) 0.1 % ointment APPLY TOPICALLY TO AFFECTED AREA ONCE EVERY MORNING clobetasol (TEMOVATE) 0.05 % ointment APPLY TO AFFECTED AREAS ONCE A DAY AT NIGHT TIME EXTERNALLY 14 DAY(S) albuterol HFA (PROAIR HFA) 90 mcg/actuation inhaler Inhale 2 Puffs as instructed every 4 hours as needed for Wheezing/Shortness of Breath. 18 g 5 Blood Pressure Monitor 1 Each as directed. 1 Kit 0 albuterol (PROVENTIL) 2.5 mg /3 mL (0.083 %) nebulizer solution Use 3 mL via nebulizer every 6 hours as needed for Wheezing/Shortness of Breath. 100 Vial 0 EPINEPHrine (ADRENACLICK) 0.3 mg/0.3 mL auto-injector Use as directed MULTIVIT &MINERALS/FERROUS FUM (MULTI VITAMIN ORAL) Take 1 tablet by mouth once daily. cyanocobalamin (VITAMIN B-12) 100 mcg tab Take 100 mcg by mouth once daily. Cholecalciferol, Vitamin D3, (VITAMIN D) 1,000 unit tab Take 1,000 Units by mouth once daily. No current facility-administered medications for this visit. Allergies ALLERGIES Allergen Reactions Kiara Inhibitors Other: See Comments Facial swelling Adhesive Unknown Adhesive Tape (Imani* Rash Latex Unknown Lisinopril Unknown Seasonal Allergies Intolerance Sulfa (Sulfonamide * Hives Family History FAMILY HISTORY Problem Relation Age of Onset other (HTN) Mother other (DM2) Mother other (M I) Mother 50 Cancer Father leukemia other (HTN) Father other (DM2) Father other (MDS) Father Ovarian cancer Paternal Grandmother other (Diabetes mellitus) Other colon/prostate CA other (Heart disease) Other Hypertension Other other (M I) Paternal Grandfather Social History Social History Tobacco Use Smoking status: Former Types: Cigarettes Quit date: 10/09/1992 Years since quittin.2 Smokeless tobacco: Never Vaping Use Vaping Use: Never used Substance Use Topics Alcohol use: Yes Comment: social Drug use: No Review of Systems Patient denies fever, chills, nausea, vomiting, diarrhea, calf pain, thigh pain, shortness of breath, chest pain, claudication, burning, paresthesias. OBJECTIVE: General Awake, alert, oriented, in no apparent distress, resting comfortably in exam room chair. Musculoskeletal Mild stiffness throughout RL. Faint PTP of the plantar medial heel at the fascial origin and throughout the taut medial fascial bands R. Muscle strength is full for those examined RL. Muscle tone is normal for those observed RL. No overt spasticity or paralysis. Orthopedic The RLE is approximately 2cm longer than the LLE. Decreased arch height with plantarflexed forefoot RL. With the subtalar joint maximally supinated, the ankle ROM is limited to -30 degrees RL. Mild hallux abduction with flexible digital contractures RL. Remaining joints have grossly full smooth ROM without obvious deformity, crepitus, or instability. Gait Analysis Not performed today. Shoegear Inspection Not performed today. Outside Results None to review today. Labs Hemoglobin (g/dL) Date Value 09/16/2021 12.2 HGB (g/dL) Date Value 07/20/2019 12.8 Hematocrit (%) Date Value 09/16/2021 37.7 07/20/2019 40.0 WBC Date Value 09/16/2021 6.34 k/uL 07/20/2019 7.0 thou/cmm Platelet Count Date Value 09/16/2021 250 k/uL 07/20/2019 262 thou/cmm CMP: Glucose 106 09/16/2021 BUN 12 09/16/2021 Creatinine 0.75 09/16/2021 Sodium 138 09/16/2021 Potassium 4.0 09/16/2021 Chloride 103 09/16/2021 CO2 27 09/16/2021 Protein, Total 7.4 09/16/2021 Albumin 4.2 09/16/2021 Calcium 8.9 09/16/2021 Alkaline Phosphatase 105 09/16/2021 Bilirubin, Total 0.2 09/16/2021 AST 12 09/16/2021 ALT 11 09/16/2021 Office Radiographs Weightbearing foot L 3 views were obtained in the office today. All images reviewed in detail. Images were of adequate quality. No suggestion of fracture, dislocation, stress fracture, subcutaneous emphysema, foreign body, or coalition. Bone density is grossly within normal limits. Elongated 2nd metatarsal. No facial and faint Achilles spurring of calcaneus. ASSESSMENT: Encounter Diagnosis ICD-10-CM 1. Plantar fasciitis M72.2 2. Pain in right foot M79.671 3. Difficulty walking R26.2 PLAN: Reviewed the medical record, specific findings, and collaborative customized plan with patient- all questions were answered. The patient's expectations, preferences, limitations, and personal, professional, recreational activities were taken into account. Discussed etiologies, epidemiology, pathogenesis, clinical manifestations, studies, diagnosis, differential diagnoses, complications, and treatment options. Treatment goals are to minimize pain, maximize function, avoid surgery, and successfully get back to life for the long-term. - Stretching Demonstrated proper fascial/Achilles stretching technique to be repeated at least four times per day. Instructed patient to carefully slide heels off the bottom step of stairs while holding onto the railing, with the knees fully extended. Instead of going up like a calf raise, gently and passively allow the heels to go down, without bouncing, and hold at the bottom for 30+ seconds. - PowerSteps For immediate semi-rigid control and supplementation of the feet, one pair of full length PowerSteps Pro was dispensed, to be worn at all times. Instructed patient to remove the factory insert from all shoes before placing devices. Every step must be supported- avoid going barefoot or wearing flipflops. - Hold both exercise and extended or intense activities, but slowly start to tease back into normal activities as she gets back to life. RTO: 6 weeks- plantar fasciitis R Advised patient to contact office immediately if they feel they need to be seen sooner, symptoms intensify or expand, or they have a new issue. Total physician time on the date of this encounter to prepare, review separately obtained history, examine, evaluate, corporate travel counselor, educate, order medications/tests/procedures, refer, communicate with other healthcare professionals, document clinical information, independently interpret and communicate results, and coordinate care: 13 minutes. David Lopez, DPAnitra, FACFAS, FFPM RCPS(Glasg) [facility] [address] [place] [address] W [email or web address] Toan Gurrola APRN.AUTOMATION SALES MANAGER documented in this encounter [facility] 12-05-2021 Miscellaneous Notes Formattin g of this note might be different from the original. Called pt let her know the results pt went to [facility] they can see the results in the system Devorah Cotton MA ----- Message from Toan Gurrola APRN.AUTOMATION SALES MANAGER sent at 12/03/2021 8:55 PM EDT ----- Foot xr show minimal bone spur which is unchanged from xr 04/2020. Please the social group worker she has an appt with and please fax her xr to them documented in this encounter [facility] 12-01-2021 History of Presen t illness Narrative Images from the original note were not included. 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 Points to the plantar heel as being the most painful area. Admits post-static dyskinesia. Aggravated by intense/lengthy activities and recent return to school. No known mechanism or initiating event. Previous unsuccessful treatments have included recent ibuprofen and oral steroid from PCP. Is eager to get back to life and is anticipating a steroid injection today. Past Medical History ACTIVE PROBLEM LIST Depression Psoriasis Allergic Reaction Benign Essential Hypertension Foot Sprain Sprain of Right Ankle Eczema Environmental Allergies Mild Intermittent Asthma With Acute Exacerbation Past Surgical History PAST SURGICAL HISTORY Procedure Laterality Date BREAST BIOPSY R benign LAPAROSCOPY DIAGNOSTIC with PAMELA & TL PAST SURGICAL HISTORY OF Left Sebaceous cyst surgery - L breast PAST SURGICAL HISTORY OF 1998 Tubal ligation PAST SURGICAL HISTORY OF Laparotomy, exploration- pelvic cyst and adhesions; Dr. Rahman SKIN LESION BIOPSY left chest wall lipoma Medications Current Outpatient Medications Medication Sig Dispense Refill ibuprofen (MOTRIN) 600 mg tablet Take 1 tablet by mouth every 6 hours as needed for pain. 90 tablet 1 predniSONE (DELTASONE) 20 mg tablet Take 2 tablets by mouth once daily. 10 tablet 0 vortioxetine (TRINTELLIX) 10 mg tablet Take 1 tablet by mouth once daily. 90 tablet 1 losartan (COZAAR) 50 mg tablet Take 1 tablet by mouth once daily. 90 tablet 1 benzonatate (TESSALON PERLE) 100 mg capsule Take 1 capsule by mouth three times daily as needed. 30 capsule 0 fluticasone (FLONASE ALLERGY RELIEF) 50 mcg/actuation nasal spray Use 1 [place] in each nostril once daily. 1 Each 5 tacrolimus (PROTOPIC) 0.1 % ointment APPLY TOPICALLY TO AFFECTED AREA ONCE EVERY MORNING clobetasol (TEMOVATE) 0.05 % ointment APPLY TO AFFECTED AREAS ONCE A DAY AT NIGHT TIME EXTERNALLY 14 DAY(S) albuterol HFA (PROAIR HFA) 90 mcg/actuation inhaler Inhale 2 Puffs as instructed every 4 hours as needed for Wheezing/Shortness of Breath. 18 g 5 Blood Pressure Monitor 1 Each as directed. 1 Kit 0 albuterol (PROVENTIL) 2.5 mg /3 mL (0.083 %) nebulizer solution Use 3 mL via nebulizer every 6 hours as needed for Wheezing/Shortness of Breath. 100 Vial 0 EPINEPHrine (ADRENACLICK) 0.3 mg/0.3 mL auto-injector Use as directed MULTIVIT &MINERALS/FERROUS FUM (MULTI VITAMIN ORAL) Take 1 tablet by mouth once daily. cyanocobalamin (VITAMIN B-12) 100 mcg tab Take 100 mcg by mouth once daily. Cholecalciferol, Vitamin D3, (VITAMIN D) 1,000 unit tab Take 1,000 Units by mouth once daily. No current facility-administered medications for this visit. Allergies ALLERGIES Allergen Reactions Kiara Inhibitors Other: See Comments Facial swelling Adhesive Unknown Adhesive Tape (Imani* Rash Latex Unknown Lisinopril Unknown Seasonal Allergies Intolerance Sulfa (Sulfonamide * Hives Family History FAMILY HISTORY Problem Relation Age of Onset other (HTN) Mother other (DM2) Mother other (M I) Mother 50 Cancer Father leukemia other (HTN) Father other (DM2) Father other (MDS) Father Ovarian cancer Paternal Grandmother other (Diabetes mellitus) Other colon/prostate CA other (Heart disease) Other Hypertension Other other (M I) Paternal Grandfather Social History Social History Tobacco Use Smoking status: Former Types: Cigarettes Quit date: 10/09/1992 Years since quittin.1 Smokeless tobacco: Never Vaping Use Vaping Use: Never used Substance Use Topics Alcohol use: Yes Comment: social Drug use: No Review of Systems Patient denies fever, chills, nausea, vomiting, diarrhea, calf pain, thigh pain, shortness of breath, chest pain, claudication, burning, paresthesias. OBJECTIVE: General Awake, alert, oriented, in no apparent distress, resting comfortably in exam room chair. Vascular DP palpable RL. PT palpable RL. CFT immediate RL. Digital hair present RL. Mild non-pitting edema RL. Faint varicosities RL. Lymphatic By report, inguinal and popliteal lymph nodes are non-painful, soft, and of normal size RL. Neurologic Vibratory sensation is decreased at the dorsal IPJ of the hallux RL. Dermatologic Mild fat pad atrophy RL. Normal pigmentation, warm, with normal turgor and mobility RL. No ulceration, signs of infection, or overt ischemia RL. Webspaces are clean and dry RL. Punctate hyperkeratosis formation not present RL. Musculoskeletal Mild stiffness throughout RL. PTP of the plantar medial heel at the fascial origin and throughout the taut medial fascial bands R. Muscle strength is full for those examined RL. Muscle tone is normal for those observed RL. No overt spasticity or paralysis. Orthopedic The RLE is approximately 2cm longer than the LLE. Decreased arch height with plantarflexed forefoot RL. With the subtalar joint maximally supinated, the ankle ROM is limited to -30 degrees RL. Mild hallux abduction with flexible digital contractures RL. Remaining joints have grossly full smooth ROM without obvious deformity, crepitus, or instability. Gait Analysis Not performed today. Shoegear Inspection Not performed today. Outside Results None to review today. Labs Hemoglobin (g/dL) Date Value 09/16/2021 12.2 HGB (g/dL) Date Value 07/20/2019 12.8 Hematocrit (%) Date Value 09/16/2021 37.7 07/20/2019 40.0 WBC Date Value 09/16/2021 6.34 k/uL 07/20/2019 7.0 thou/cmm Platelet Count Date Value 09/16/2021 250 k/uL 07/20/2019 262 thou/cmm CMP: Glucose 106 09/16/2021 BUN 12 09/16/2021 Creatinine 0.75 09/16/2021 Sodium 138 09/16/2021 Potassium 4.0 09/16/2021 Chloride 103 09/16/2021 CO2 27 09/16/2021 Protein, Total 7.4 09/16/2021 Albumin 4.2 09/16/2021 Calcium 8.9 09/16/2021 Alkaline Phosphatase 105 09/16/2021 Bilirubin, Total 0.2 09/16/2021 AST 12 09/16/2021 ALT 11 09/16/2021 Office Radiographs Weightbearing foot L 3 views were obtained in the office today. All images reviewed in detail. Images were of adequate quality. No suggestion of fracture, dislocation, stress fracture, subcutaneous emphysema, foreign body, or coalition. Bone density is grossly within normal limits. Elongated 2nd metatarsal. No facial and faint Achilles spurring of calcaneus. ASSESSMENT: Encounter Diagnosis ICD-10-CM 1. Plantar fasciitis M72.2 2. Pain in right foot M79.671 3. Difficulty walking R26.2 PLAN: Reviewed the medical record, specific findings, and collaborative customized plan with patient- all questions were answered. The patient's expectations, preferences, limitations, and personal, professional, recreational activities were taken into account. Discussed etiologies, epidemiology, pathogenesis, clinical manifestations, studies, diagnosis, differential diagnoses, complications, and treatment options. Treatment goals are to minimize pain, maximize function, avoid surgery, and successfully get back to life for the long-term. - Stretching Demonstrated proper fascial/Achilles stretching technique to be repeated at least four times per day. Instructed patient to carefully slide heels off the bottom step of stairs while holding onto the railing, with the knees fully extended. Instead of going up like a calf raise, gently and passively allow the heels to go down, without bouncing, and hold at the bottom for 30+ seconds. - PowerSteps For immediate semi-rigid control and supplementation of the feet, one pair of full length PowerSteps Pro was dispensed, to be worn at all times. Instructed patient to remove the factory insert from all shoes before placing devices. Every step must be supported- avoid going barefoot or wearing flipflops. - Orthotics For long-term custom control and supplementation of the feet, the patient's insurance will be contacted to pre-authorize full length custom orthotics. The patient will be contacted with the results and to schedule scanning. - Discussed otc oral and topical pain reliever options/risks/benefits; heat versus ice therapies. Agreed to hold po ibuprofen/steroid. - Hold both exercise and extended or intense activities. RTO: 2 weeks- plantar fasciitis R Advised patient to contact office immediately if they feel they need to be seen sooner, symptoms intensify or expand, or they have a new issue. Total physician time on the date of this encounter to prepare, review separately obtained history, examine, evaluate, corporate travel counselor, educate, order medications/tests/procedures, refer, communicate with other healthcare professionals, document clinical information, independently interpret and communicate results, and coordinate care: 32 minutes. David Lopez DPM, FACFAS, FFPM RCPS([facility]) [facility] [address] [place] [address] W [email or web address] Toan Gurrola APRN.AUTOMATION SALES MANAGER documented in this encounter [facility] 11-30-2021 Miscellaneous Notes Formattin g of this note is different from the original. Pharmacy calls in requesting the following refill(s): Requested Prescriptions Pending Prescriptions Disp Refills vortioxetine (TRINTELLIX) 10 mg tablet 90 tablet 1 Sig: Take 1 tablet by mouth once daily. losartan (COZAAR) 50 mg tablet 90 tablet 1 Sig: Take 1 tablet by mouth once daily. Devorah Cotton MA documented in this encounter [facility] 10-12-2021 Miscellaneous Notes Called pt let her know the information Devorah Cotton MA rx sent in. Instruct once completed continue with daily NSAID. If persists will need to see ortho Pt stated at her last OV she mentioned she was having issues with Elbow pain and was instructed to call the office if the pain continues and you would send in Prednisone for her. She is wanting to know if you are able to send that in Devorah Cotton MA documented in this encounter [facility] 09-18-2021 Miscellaneous Notes Called pt left VM with results and for her to call the office with any questions Devorah Cotton MA ----- Message from Toan Gurrola APRN.AUTOMATION SALES MANAGER sent at 09/17/2021 11:19 PM EDT ----- CMP sugar stable rest okay Tsh wnl Lipids okay CBC wnl documented in this encounter [facility] 09-11-2021 Instructions Toan Gurrola APRN.AUTOMATION SALES MANAGER - 09/11/2021 2:32 PM EDT ASSESSMENT/PLAN: 1. Wellness examination - ICD9: V70.0, ICD10: Z00.00 (primary diagnosis) - Counseled on healthy diet and regular exercise - Calcium intake with supplements or by diet of 1000 mg/day for under 50, 0144-8311 mg/day for 50+ - Discussed need and benefit for weight loss. BMI 37.80 kg/(m^2) - Mammogram ordered - exam recommended once yearly - Follow up for annual exam in one year 2. Mild intermittent asthma with acute exacerbation - ICD9: 493.92, ICD10: J45.21 Mild intermittent Asthma stable - Continue current meds - Avoidance of triggers recommended 3. Benign essential hypertension - ICD9: 401.1, ICD10: I10 - good control - Continue current medication(s) - Encouraged dietary sodium restriction/DASH diet - Recommended regular aerobic exercise. - Recommend home blood pressure monitoring, to bring results in on next visit - Discussed need and benefit for weight loss. - Reviewed risks of HTN and principles of treatment - Goal of BP <130/80 - Recommended no refined sugar, low refined starch, healthy oil intake (olive oil), healthy protein (fish) along the lines of the Mediterranean diet. - CBC - COMP METABOLIC PANEL 4. Environmental allergies - ICD9: V15.09, ICD10: Z91.09 - chronic, stable 5. Depression, unspecified depression type - ICD9: 311, ICD10: F32.A - controlled continue trillentlix as previously ordered. 6. Lateral epicondylitis of left elbow - ICD9: 726.32, ICD10: M77.12 - acute, - see handout - recommend ibuprofen 400 mg 3 times daily with food. - ice 20 min 4-5x/day. 7. Encounter for screening mammogram for malignant neoplasm of breast - ICD9: V76.12, ICD10: Z12.31 - SAFIA SCREENING 8. Screening for lipid disorders - ICD9: V77.91, ICD10: Z13.220 - LIPID PANEL BASIC 9. Screening for thyroid disorder - ICD9: V77.0, ICD10: Z13.29 - TSH BLD 10. Need for shingles vaccine - ICD9: V04.89, ICD10: Z23 - VARICELLA-ZOSTER GLYCOE VACC-AS01B ADJ(PF) 50 MCG/0.5 ML IM SUSP, KIT - rx given to take to pharmacy Toan Gurrola APRN.AUTOMATION SALES MANAGER Tennis Elbow (Lateral Epicondylitis) What is tennis elbow? Tennis elbow is a general term that usually is not related to playing tennis. However, this term came into use because it can be a significant problem for some tennis players who librarian their racquet too tightly. Tennis elbow is a condition usually caused by overuse of the forearm muscles (wrist extenders) that results in pain at the elbow. It affects the outside (lateral) elbow. Tennis elbow most commonly involves the area where the muscles and tendons of the forearm attach to the outside bony area (called the epicondyle) of the elbow. Your doctor may also call this condition lateral epicondylitis. Tennis elbow can affect either the dominant or non-dominant arm, or it may affect both arms. What are the symptoms of tennis elbow? Pain generally grows slowly around the outside of the elbow. Less often pain may develop suddenly. Pain is worse when shaking hands or squeezing objects. Pain is made worse by holding the wrist stiff or moving the wrist with force. Examples include lifting and using tools or even items like a toothbrush or knife and fork. Who is affected by tennis elbow? Tennis elbow affects 1% to 3% of the population and, overall, 10% to 50% of tennis players during their careers. Fewer than 5% of tennis elbow diagnoses are related to tennis. Tennis elbow affects men more than women. It most often affects people between the ages of 30 and 50, although people of any age can be affected. Tennis elbow also affects other athletes and workers who participate in activities that require repetitive arm, elbow and wrist work. Examples include: Golfers Baseball players Bowlers Garden and lawn workers Jobs that require vacuuming, sweeping, and scrubbing Topstitcher Lockstitch and mechanics Assembly line workers What causes tennis elbow? Tennis elbow is caused by either abrupt or subtle tearing of the muscle/tendon area around the outside of the elbow. How is tennis elbow diagnosed? Tennis elbow cannot be diagnosed from blood tests or X-rays. The condition is diagnosed by the description of pain you provide to your doctor (clinical history) and findings during a physical examination. It can be confirmed by ultrasound or MRI. Since many other conditions can cause pain around the elbow, it is important that you see your doctor so the proper diagnosis can be made. Then your doctor can prescribe the appropriate treatment. How is tennis elbow treated? Tennis elbow is usually treated by medical means, and only rarely by surgery. The goals of treatment are to: 1. Reduce or relieve pain and inflammation (swelling) This is the first step in the treatment process and may include: Resting and avoiding any activity that causes pain to the sore elbow Applying ice to the affected area Using non-steroidal anti-inflammatory drugs (NSAIDS) such as ibuprofen Use of a counter-force brace such as a tennis elbow strap on the forearm for forceful activities Use of a wrist splint at night to rest the muscles and tendons Using cortisone-type medication, provided by injection into the sore area. This treatment may be needed for severe or prolonged symptoms. 2. Allow the injured elbow to recover and heal This step begins a couple of weeks after pain has been reduced or stopped. The step involves: Doing specific physical therapy exercises to stretch out and lengthen and strengthen muscles and tendons near the injured elbow Avoiding activities that aggravate pain 3. Decrease stress and abuse on the elbow This part of the treatment process may include: Use of the proper equipment in sports and on the job Use of the proper technique in sports or on the job Use of a counter-force brace, an elastic band that wraps around the forearm just below the injured elbow (tendon), to help relieve pain Use of a splint at night to keep your wrist in a neutral position More advanced treatments may be appropriate depending on the length and severity of your symptoms and may include use of nitrogen products, PRP (patient's own platelets), shockwave, or even surgery. The type of treatment will depend on several factors, including the person's age, type of other medications being taken, overall health, medical history, and severity of pain. What is the outlook for people with tennis elbow? Overall, 90% to 95% of patients with tennis elbow will improve and recover with the treatment plan described previously. However, about 5% of patients will not get better with conservative therapy and will need surgery to repair the injured muscle-tendon unit around the elbow. Eighty percent to 90% of patients who have surgery will improve with pain relief and return of strength to unlimited activities. References [place] [employer]. Tennis Elbow (Lateral Epicondylitis) Accessed 10/12/2015. [place] [employer] Hand. Tennis Elbow Lateral Epicondylitis Accessed 10/12/2015. Blake ORDONEZ. Tennis elbow. Proceedings ([facility]). 2008;21(4):400-402. ncbi.nlm.nih.gov Accessed 10/12/2015. Copyright 1322-4437 [facility]. All rights reserved This information is provided by the [facility] and is not intended to replace the medical advice of your doctor or health care provider. Please consult your health care provider for advice about a specific medical condition. For additional health information, please contact the Center for [employer] Health Information at the [facility] or toll-free extension [phone]. If you prefer, you may visit [email or web address] or [email or web address]. This document was last reviewed on: 2015 index#7049 Tennis Elbow Exercises You may do the stretching exercises right away. You may do the strengthening exercises when stretching is nearly painless. Stretching exercises Wrist active range of motion, flexion and extension: Bend the wrist of your injured arm forward and back as far as you can. Do 2 sets of 15. Wrist stretch: Press the back of the hand on your injured side with your other hand to help bend your wrist. Hold for 15 to 30 seconds. Next, stretch the hand back by pressing the fingers in a backward direction. Hold for 15 to 30 seconds. Keep the arm on your injured side straight during this exercise. Do 3 sets. Forearm pronation and supination: Bend the elbow of your injured arm 90 degrees, keeping your elbow at your side. Turn your palm up and hold for 5 seconds. Then slowly turn your palm down and hold for 5 seconds. Make sure you keep your elbow at your side and bent 90 degrees while you do the exercise. Do 2 sets of 15. Active elbow flexion and extension: Gently bring the palm of the hand on your injured side up toward your shoulder, bending your elbow as much as you can. Then straighten your elbow as far as you can. Repeat 15 times. Do 2 sets of 15. Strengthening exercises Eccentric wrist flexion: Hold a can or hammer handle in the hand of your injured side with your palm up. Use the hand on the side that is not injured to bend your wrist up. Then let go of your wrist and use just your injured side to lower the weight slowly back to the starting position. Do 3 sets of 15. Gradually increase the weight you are holding. Eccentric wrist extension: Hold a soup can or hammer handle in the hand of your injured side with your palm facing down. Use the hand on the side that is not injured to bend your wrist up. Then let go of your wrist and use just your injured side to lower the weight slowly back to the starting position. Do 3 sets of 15. Gradually increase the weight you are holding. Wrist radial deviation strengthening: Put your wrist in the sideways position with your thumb up. Hold a can of soup or a hammer handle and gently bend your wrist up, with the thumb reaching toward the ceiling. Slowly lower to the starting position. Do not move your forearm throughout this exercise. Do 2 sets of 15. Forearm pronation and supination strengthening: Hold a soup can or hammer handle in your hand and bend your elbow 90 degrees. Slowly turn your hand so your palm is up and then down. Do 2 sets of 15. Wrist extension with broom handle: Stand up and hold a broom handle in both hands. With your arms at shoulder level, elbows straight and palms down, roll the broom handle backward in your hand. Do 2 sets of 15. Developed by [employer]. Adult Advisor 2014.1 published by [employer]. Last modified: 2011-08-30 Last reviewed: 2011-03-23 This content is reviewed periodically and is subject to change as new health information becomes available. The information is intended to inform and educate and is not a replacement for medical evaluation, advice, diagnosis or treatment by a healthcare professional. References Adult Advisor 2013.1 Index Copyright 2014 [employer] and/or one of its subsidiaries. All rights reserved. documented in this encounter [facility] 09-11-2021 History of Presen t illness Narrative SUBJECTIVE: Deborah Lugo is a 56 year old female who presents for WAE. PMH HTN, depression, asthma, psoriasis, eczema. Patient denies changes in health since last office visit. Reports feeling well. Denies concerns or complaints today. I reviewed her past medical, surgical, social, and family histories today and updated chart. Allergies, chronic medications, and supplements were also reviewed and her list is now up to date. HTN: Ms. Lugo indicates that she is feeling well and denies any symptoms referable to elevated blood pressure. Specifically denies headache, chest pain, palpitations, dyspnea, peripheral edema, claudication symptoms, orthopnea, fatigue and PND. Patient denies any side effects of her medication(s) and is compliant with their regimen. She does not check BP's generally. Deborah likes to exercise by walking. She watches her diet for sodium, low fat and low cholesterol most of the time. Last 3 Encounter BP Readings: Date: BP: 09/11/2021 122/78 07/19/2021 140/83 07/12/2021 122/62 Depression: She continues taking Trintellix for management. She was started on trintellix about 3 yrs ago. Denies feeling depressed or thoughts of suicide. Asthma/Allergies - following with allergy / immunology, Dr Lopez for management. Reports asthma well controlled.She rarely uses her proair. Reports using at most 1-2 times a month. Denies night wakings. Occasional cough. She follows up with him every 6 months for spirometry. Allergies are chronic and stable. She is receiving allergy shots every 4 wks. Reports in fall she has to go to every 3 wks. Psoriasis/Eczema: Reports being diagnosed in her 30s. She is now seeing derm at [facility]. She stopped skyrizi. She reports she started her on clobetasol and reports it has been effective and her hands are cleared. she is using 2 topical creams which have been effective. Reports psoriasis on her legs and hands are eczema. Preventative - She is up to date with colonoscopy with Dr Grove 12/2018. Reports she is due this December. She was to follow up every 3 yrs. She sees ORTHODONTIC TECHNICIAN ASSISTANT Caridad Lopez she has appt next week. last mammogram 11/04/20 at [facility]. She received 3 covid vaccines. PAST MEDICAL HISTORY Diagnosis Date Acute sinusitis - Resolved Allergic rhinitis Benign essential hypertension Breast lump - Lt. '98; R '05 Cobalamin deficiency Depression Hyperlipidemia Psoriatic arthritis (HCC) Seasonal allergies Transfusion history PPH with first delivery Urticaria PAST SURGICAL HISTORY Procedure Laterality Date BREAST BIOPSY R benign LAPAROSCOPY DIAGNOSTIC with PAMELA & TL PAST SURGICAL HISTORY OF Left Sebaceous cyst surgery - L breast PAST SURGICAL HISTORY OF 1997 Tubal ligation PAST SURGICAL HISTORY OF Laparotomy, exploration- pelvic cyst and adhesions; Dr. Rahman SKIN LESION BIOPSY left chest wall lipoma Social History Tobacco Use Smoking status: Former Smoker Quit date: 10/09/1992 Years since quittin.9 Smokeless tobacco: Never Used Vaping Use Vaping Use: Never used Substance Use Topics Alcohol use: Yes Comment: social Drug use: No Family history reviewed. ALLERGIES Allergen Reactions Kiara Inhibitors Other: See Comments Facial swelling Adhesive Unknown Adhesive Tape (Imani* Rash Latex Unknown Lisinopril Unknown Seasonal Allergies Intolerance Sulfa (Sulfonamide * Hives Current Outpatient Medications Medication Sig benzonatate (TESSALON PERLE) 100 mg capsule Take 1 capsule by mouth three times daily as needed. fluticasone (FLONASE ALLERGY RELIEF) 50 mcg/actuation nasal spray Use 1 [place] in each nostril once daily. TRINTELLIX 10 mg tablet TAKE 1 TABLET BY MOUTH EVERY DAY losartan (COZAAR) 50 mg tablet TAKE 1 TABLET BY MOUTH EVERY DAY tacrolimus (PROTOPIC) 0.1 % ointment APPLY TOPICALLY TO AFFECTED AREA ONCE EVERY MORNING clobetasol (TEMOVATE) 0.05 % ointment APPLY TO AFFECTED AREAS ONCE A DAY AT NIGHT TIME EXTERNALLY 14 DAY(S) albuterol HFA (PROAIR HFA) 90 mcg/actuation inhaler Inhale 2 Puffs as instructed every 4 hours as needed for Wheezing/Shortness of Breath. Blood Pressure Monitor 1 Each as directed. albuterol (PROVENTIL) 2.5 mg /3 mL (0.083 %) nebulizer solution Use 3 mL via nebulizer every 6 hours as needed for Wheezing/Shortness of Breath. EPINEPHrine (ADRENACLICK) 0.3 mg/0.3 mL auto-injector Use as directed MULTIVIT &MINERALS/FERROUS FUM (MULTI VITAMIN ORAL) Take 1 tablet by mouth once daily. cyanocobalamin (VITAMIN B-12) 100 mcg tab Take 100 mcg by mouth once daily. Cholecalciferol, Vitamin D3, (VITAMIN D) 1,000 unit tab Take 1,000 Units by mouth once daily. No current facility-administered medications for this visit. Review of Systems Constitutional: Negative for chills, diaphoresis, fever, malaise/fatigue and weight loss. HENT: Negative. Negative for congestion, ear pain, sore throat and tinnitus. Eyes: Negative. Negative for photophobia and pain. Respiratory: Negative for cough, sputum production, shortness of breath and wheezing. Cardiovascular: Negative for chest pain, palpitations, orthopnea and leg swelling. Gastrointestinal: Negative. Negative for abdominal pain, blood in stool, constipation, diarrhea, heartburn, melena, nausea and vomiting. Genitourinary: Negative. Negative for frequency and urgency. Musculoskeletal: Positive for joint pain. Negative for falls and neck pain. Let elbow pain x 2-3 wks. Reports inside elbow area. Denies injury. Worsens when carries or reaches for something. Denies numbness or tingling. She has tried ibuprofen which seemed to help Skin: Negative. Negative for itching. Neurological: Negative. Negative for dizziness, tingling, tremors, sensory change, focal weakness, weakness and headaches. Endo/Heme/Allergies: Negative. Negative for environmental allergies. Does not bruise/bleed easily. Psychiatric/Behavioral: Negative for depression. The patient is not nervous/anxious and does not have insomnia. BP 122/78 Pulse 74 Temp (Src) 98.2 (Oral) Resp 18 Ht 5' 2.5 (1.59m) Wt 210 lb (95.3kg) SpO2 97% LMP 03/24/2013 BMI 37.77 kg/(m^2). Physical Exam Vitals and nursing note reviewed. Constitutional: General: She is not in acute distress. Appearance: Normal appearance. She is obese. She is not diaphoretic. HENT: Head: Normocephalic and atraumatic. Right Ear: External ear normal. Left Ear: External ear normal. Nose: Nose normal. Mouth/Throat: Pharynx: No oropharyngeal exudate. Eyes: General: Lids are normal. No scleral icterus. Right eye: No discharge. Left eye: No discharge. Conjunctiva/sclera: Conjunctivae normal. Pupils: Pupils are equal, round, and reactive to light. Neck: Vascular: Normal carotid pulses. No carotid bruit. Cardiovascular: Rate and Rhythm: Normal rate and regular rhythm. Pulses: Normal pulses. Heart sounds: Normal heart sounds, S1 normal and S2 normal. No murmur heard. No friction rub. No gallop. Pulmonary: Effort: Pulmonary effort is normal. No accessory muscle usage or respiratory distress. Breath sounds: Normal breath sounds. No decreased breath sounds, wheezing, rhonchi or rales. Chest: Chest wall: No tenderness. Abdominal: General: Bowel sounds are normal. There is no distension. Palpations: Abdomen is soft. Tenderness: There is no abdominal tenderness. Musculoskeletal: General: Normal range of motion. Left elbow: Tenderness present in lateral epicondyle. Cervical back: Normal range of motion and neck supple. Skin: General: Skin is warm and dry. Coloration: Skin is not pale. Findings: No erythema or rash. Nails: There is no clubbing. Neurological: Mental Status: She is alert and oriented to person, place, and time. Sensory: Sensation is intact. Motor: Motor function is intact. No abnormal muscle tone. Coordination: Coordination normal. Gait: Gait is intact. Deep Tendon Reflexes: Reflexes are normal and symmetric. Psychiatric: Mood and Affect: Mood and affect normal. Behavior: Behavior normal. Thought Content: Thought content normal. Cognition and Memory: Memory normal. Judgment: Judgment normal. ASSESSMENT/PLAN: 1. Wellness examination - ICD9: V70.0, ICD10: Z00.00 (primary diagnosis) - Counseled on healthy diet and regular exercise - Calcium intake with supplements or by diet of 1000 mg/day for under 50, 1214-3479 mg/day for 50+ - Discussed need and benefit for weight loss. BMI 37.80 kg/(m^2) - Mammogram ordered - exam recommended once yearly - Follow up for annual exam in one year 2. Mild intermittent asthma with acute exacerbation - ICD9: 493.92, ICD10: J45.21 Mild intermittent Asthma stable - Continue current meds - Avoidance of triggers recommended 3. Benign essential hypertension - ICD9: 401.1, ICD10: I10 - good control - Continue current medication(s) - Encouraged dietary sodium restriction/DASH diet - Recommended regular aerobic exercise. - Recommend home blood pressure monitoring, to bring results in on next visit - Discussed need and benefit for weight loss. - Reviewed risks of HTN and principles of treatment - Goal of BP <130/80 - Recommended no refined sugar, low refined starch, healthy oil intake (olive oil), healthy protein (fish) along the lines of the Mediterranean diet. - CBC - COMP METABOLIC PANEL 4. Environmental allergies - ICD9: V15.09, ICD10: Z91.09 - chronic, stable - continue flonase as needed 5. Depression, unspecified depression type - ICD9: 311, ICD10: F32.A - controlled - continue trillentlix as previously ordered. 6. Lateral epicondylitis of left elbow - ICD9: 726.32, ICD10: M77.12 - acute, - see handout - recommend ibuprofen 400 mg 3 times daily with food. - ice 20 min 4-5x/day. 7. Encounter for screening mammogram for malignant neoplasm of breast - ICD9: V76.12, ICD10: Z12.31 - SAFIA SCREENING 8. Screening for lipid disorders - ICD9: V77.91, ICD10: Z13.220 - LIPID PANEL BASIC 9. Screening for thyroid disorder - ICD9: V77.0, ICD10: Z13.29 - TSH BLD 10. Need for shingles vaccine - ICD9: V04.89, ICD10: Z23 - VARICELLA-ZOSTER GLYCOE VACC-AS01B ADJ(PF) 50 MCG/0.5 ML IM SUSP, KIT - rx given to take to pharmacy Toan Gurrola APRN.[employer] SALES MANAGER documented in this encounter [facility] 08-03-2021 Miscellaneous Notes Script was sent in 07/12/21 with 5 refills. Massiel Amaya MA documented in this encounter [facility] 07-19-2021 Instructions Marsha Perez PA-C - 07/19/2021 4:18 PM EDT ASSESSMENT/PLAN: 1. Acute non-recurrent maxillary sinusitis X 12 days (onset 07/07/21). CXR from PCP- Reading is pending - If CXR is clear- Then start the Augmentin you got from your PCP for sinuitis - If CXR shows pneumonia or other infection- The await PCP instructions for antibiotic care - COVID WITH FLUA+B, ROUTINE - DIFLUCAN- Pt requested it in aline eof antibiotic induced yeast infection 2. Acute effusion of right ear - - Continue Flonase - Continue Zyrtec 3. Cough - BENZONATATE 100 MG CAPSULE or Mucinex - Continue Albuterol - Just finished a steroid burst Encourage fluids, rest. Tylenol and Motrin for pain and fever Saline Nasil spray, Neti Pot, vaporizer, Vicks. Try Cepocol lozenges or Chloraseptic throat spray. Warm salt water gargles. Cough and deep breath- 10x/hr while awake. Call PCP if sx worsen or no better. If symptoms worsen, or new symptoms develop go to ER. If you have worsening of breathing or breathing changes- go to ER. If you have persistent fever unrelieved by Tylenol/Motrin- go to the ER. Follow up as needed. Barriers to learning: none. The patient verbalizes understanding and is in agreement with plan of care. - Red flags for in person care discussed - All questions answered Marsha Perez PA-C documented in this encounter [facility] 07-19-2021 History of Presen t illness Narrative Surgical mask, face shield, N95, and gloves worn for all in-person care. 07/19/2021 Patient presents with: Cough: x1 week SUBJECTIVE: This is a 56 year old that is here today for concern for URI symptoms and cough for 12 days (07/07/21). She did a virtual visit with her PCP for this on 08/11/21 (had symptoms x 5 days at that time). She was given scripts for prednisone and flonase to start immediately, but per patient, was instructed to wait on starting Augmentin. She has not yesterday the Augmentin, but symptoms seemed worse today. She called her PCP today, who ordered a CXR and COVID test. She was unable to get the COVID test because it was not scheduled for a swabbing visit at a swab site. She did get the CXR- Results are pending. She presents now to the [facility] for increased sinus pressure/cheeks aching, right ear pain (8/10), neck glands feel tender and swollen, sore throat, and persistent cough. She denies fever, chills, sweats, or fatigue. Patient denies wheezing, shortness of breath, increased WOB, or chest pain. COVID vaccine: yes History of COVID: none Influenza vaccine: yes Asthma: none Pneumonia: none Tobacco: none Pain on scale of 0-10 with 0 being no pain and 10 being greatest pain: 8 -ear Nothing makes the symptoms better. Nothing makes them worse. Self-treatment:. See HPI The severity is mild and the symptoms are not improving. The patient did not have a similar problem in the last 3 months. The patient did not take any antibiotics in the last 3 months. Barriers to learning: none. Reviewed meds, OTCs, herbals or supplements. Reviewed allergies, medications, social history, and past medical history. PAST MEDICAL HISTORY Diagnosis Date Acute sinusitis - Resolved Allergic rhinitis Benign essential hypertension Breast lump - Lt. '98; R '05 Cobalamin deficiency Depression Hyperlipidemia Psoriatic arthritis (HCC) Seasonal allergies Transfusion history PPH with first delivery Urticaria ALLERGIES Kiara Inhibitors, Adhesive, Adhesive Tape (Rosins), Latex, Lisinopril, Seasonal Allergies, and Sulfa (Sulfonamide Antibiotics) MEDICATIONS Current Outpatient Medications Medication Sig predniSONE (DELTASONE) 20 mg tablet Take 2 tablets by mouth once daily. fluticasone (FLONASE ALLERGY RELIEF) 50 mcg/actuation nasal spray Use 1 [place] in each nostril once daily. amoxicillin-clavulanic acid (AUGMENTIN) 875-125 mg per tablet Take 1 tablet by mouth every 12 hours for 7 days. TRINTELLIX 10 mg tablet TAKE 1 TABLET BY MOUTH EVERY DAY losartan (COZAAR) 50 mg tablet TAKE 1 TABLET BY MOUTH EVERY DAY hydrOXYzine HCl (ATARAX) 25 mg tablet TAKE 1 TABLET BY MOUTH 3 TIMES A DAY NEEDED FOR ANXIETY tacrolimus (PROTOPIC) 0.1 % ointment APPLY TOPICALLY TO AFFECTED AREA ONCE EVERY MORNING cyclobenzaprine (FLEXERIL) 10 mg tablet Take 1 tablet by mouth every 8 hours as needed for Muscle Spasm (or pain). clobetasol (TEMOVATE) 0.05 % ointment APPLY TO AFFECTED AREAS ONCE A DAY AT NIGHT TIME EXTERNALLY 14 DAY(S) albuterol HFA (PROAIR HFA) 90 mcg/actuation inhaler Inhale 2 Puffs as instructed every 4 hours as needed for Wheezing/Shortness of Breath. Blood Pressure Monitor 1 Each as directed. albuterol (PROVENTIL) 2.5 mg /3 mL (0.083 %) nebulizer solution Use 3 mL via nebulizer every 6 hours as needed for Wheezing/Shortness of Breath. EPINEPHrine (ADRENACLICK) 0.3 mg/0.3 mL auto-injector Use as directed MULTIVIT &MINERALS/FERROUS FUM (MULTI VITAMIN ORAL) Take 1 tablet by mouth once daily. cyanocobalamin (VITAMIN B-12) 100 mcg tab Take 100 mcg by mouth once daily. Cholecalciferol, Vitamin D3, (VITAMIN D) 1,000 unit tab Take 1,000 Units by mouth once daily. No current facility-administered medications for this visit. Medications and allergies reviewed by this provider. SOCIAL HISTORY Social History Tobacco Use Smoking status: Former Smoker Quit date: 10/09/1992 Years since quittin.7 Smokeless tobacco: Never Used Vaping Use Vaping Use: Never used Substance Use Topics Alcohol use: Yes Comment: social Drug use: No REVIEW OF SYSTEMS Review of Systems ROS: constitutional: concern for covid, fatigue, HENT-sinus symptoms, Eyes- neg, heart-neg, respiratory-Cough, GI-neg, -neg, skin-neg, Allergy- neg, lymph-neg, neuro-neg, psych-neg- All systems neg except as noted above in HPI. OBJECTIVE: BP 140/83 Pulse 96 Temp 36.4 C (97.5 F) (Temporal) Resp 12 Wt 96.7 kg (213 lb 1.6 oz) LMP 03/24/2013 SpO2 97% BMI 38.36 kg/m . Vital signs reviewed by this provider. Physical Exam Vitals reviewed. Constitutional: General: She is not in acute distress. Appearance: Normal appearance. She is well-developed and normal weight. She is not ill-appearing, toxic-appearing or diaphoretic. HENT: Head: Normocephalic and atraumatic. No right periorbital erythema or left periorbital erythema. Salivary Glands: Right salivary gland is not diffusely enlarged or tender. Left salivary gland is not diffusely enlarged or tender. Right Ear: Ear canal and external ear normal. No swelling or tenderness. A middle ear effusion (clear effusion, bubbles) is present. There is no impacted cerumen. No mastoid tenderness. No hemotympanum. Tympanic membrane is not injected, scarred, perforated, erythematous, retracted or bulging. Left Ear: Tympanic membrane, ear canal and external ear normal. Nose: Congestion and rhinorrhea present. Right Sinus: Maxillary sinus tenderness present. No frontal sinus tenderness. Left Sinus: Maxillary sinus tenderness present. No frontal sinus tenderness. Mouth/Throat: Lips: [place]. No lesions. Mouth: No injury or oral lesions. Dentition: No gum lesions. Tongue: No lesions. Tongue does not deviate from midline. Palate: No mass and lesions. Pharynx: Oropharynx is clear. Uvula midline. No pharyngeal swelling, oropharyngeal exudate, posterior oropharyngeal erythema or uvula swelling. Tonsils: No tonsillar exudate or tonsillar abscesses. 1+ on the right. 1+ on the left. Eyes: General: Lids are normal. No scleral icterus. Right eye: No discharge. Left eye: No discharge. Extraocular Movements: Right eye: Normal extraocular motion. Left eye: Normal extraocular motion. Conjunctiva/sclera: Conjunctivae normal. Pupils: Pupils are equal, round, and reactive to light. Cardiovascular: Rate and Rhythm: Normal rate and regular rhythm. Heart sounds: Normal heart sounds. Pulmonary: Effort: Pulmonary effort is normal. Breath sounds: Normal breath sounds and air entry. Musculoskeletal: Cervical back: No pain with movement or muscular tenderness. Lymphadenopathy: Head: Right side of head: No submental, submandibular, tonsillar, preauricular or posterior auricular adenopathy. Left side of head: No submental, submandibular, tonsillar, preauricular or posterior auricular adenopathy. Cervical: Cervical adenopathy present. Right cervical: Superficial cervical adenopathy present. Left cervical: Superficial cervical adenopathy present. Skin: Findings: No rash. Neurological: General: No focal deficit present. Mental Status: She is alert and oriented to person, place, and time. Cranial Nerves: No facial asymmetry. Psychiatric: Behavior: Behavior is cooperative. Deborah Lugo - Meets symptom-based criteria for testing and is high risk. - COVID swab collected at time of office visit - Discussed symptom monitoring and supportive care - Red flag symptoms requiring follow up discussed ASSESSMENT/PLAN: 1. Acute non-recurrent maxillary sinusitis - ICD9: 461.0, ICD10: J01.00 (primary diagnosis) X 12 days (onset 07/07/21). CXR from PCP- Reading is pending - If CXR is clear- Then start the Augmentin you got from your PCP for sinuitis - If CXR shows pneumonia or other infection- Then await PCP instructions for antibiotic care - COVID WITH FLUA+B, ROUTINE - DIFLUCAN- Pt requested it in aline eof antibiotic induced yeast infection 2. Acute effusion of right ear - ICD9: 381.00, ICD10: H65.191 - Continue Flonase - Continue Zyrtec 3. Cough - ICD9: 786.2, ICD10: R05.9 - BENZONATATE 100 MG CAPSULE or Mucinex - Just finished a steroid burst Encourage fluids, rest. Tylenol and Motrin for pain and fever Saline Nasil spray, Neti Pot, vaporizer, Vicks. Try Cepocol lozenges or Chloraseptic throat spray. Warm salt water gargles. Cough and deep breath- 10x/hr while awake. Call PCP if sx worsen or no better. If symptoms worsen, or new symptoms develop go to ER. If you have worsening of breathing or breathing changes- go to ER. If you have persistent fever unrelieved by Tylenol/Motrin- go to the ER. Follow up as needed. Barriers to learning: none. The patient verbalizes understanding and is in agreement with plan of care. This patient encounter involved the screening or treatment of novel coronavirus infection (COVID-19). - Red flags for in person care discussed - All questions answered Marsha Perez PA-C Medical Decision Making: Problems: Moderate: Acute illness with systemic symptoms Data: Unique test(s) ordered: 1 Risk: Low: Low risk from testing/treatment Moderate: Drug management Medical Decision Making Level: 4 - Moderate I spent a total of 20 minutes on the date of the service which included preparing to see the patient, [id number] patient care, completing clinical documentation, performing a medically appropriate examination, counseling and educating the patient/family/caregiver and ordering medications, tests, or procedures. documented in this encounter [facility] 07-12-2021 History of Presen t illness Narrative This note was created using [employer]. Subjective Deborah Lugo is a 56 year old female here today for acute visit for complaints of cough and congestion x 5 days. PMH HTN, depression. Reports symptoms started on Saturday 6 days ago. Reports started with cough and hoarse voice. Reports cough mostly is non productive. She has since developed sinus pain, pressure, nasal congestion. Reports symptoms worsening and was not able to sleep last night. She reports taking COVID test at home and it was negative. She has hx of asthma and allergies. She gets allergy flares in spring and does receive every 3-4 wk allergy shots. She is using her warm mist humidifier, sudafed, tylenol and zyretec daily. Reports symptoms are worsening. She sees Dr Garcia for her allergies and asthma. She does have albuterol nebulizer for symptoms when needed. She reports occasional wheezing. Denies fever, chills, [place], dizziness, CP, palpitations. ALLERGIES Allergen Reactions Kiara Inhibitors Other: See Comments Facial swelling Adhesive Unknown Adhesive Tape ([place]* Rash Latex Unknown Lisinopril Unknown Seasonal Allergies Intolerance Sulfa (Sulfonamide * Hives Current Outpatient Medications Medication Sig Dispense Refill TRINTELLIX 10 mg tablet TAKE 1 TABLET BY MOUTH EVERY DAY 30 tablet 5 losartan (COZAAR) 50 mg tablet TAKE 1 TABLET BY MOUTH EVERY DAY 30 tablet 5 hydrOXYzine HCl (ATARAX) 25 mg tablet TAKE 1 TABLET BY MOUTH 3 TIMES A DAY NEEDED FOR ANXIETY 270 tablet 1 tacrolimus (PROTOPIC) 0.1 % ointment APPLY TOPICALLY TO AFFECTED AREA ONCE EVERY MORNING cyclobenzaprine (FLEXERIL) 10 mg tablet Take 1 tablet by mouth every 8 hours as needed for Muscle Spasm (or pain). 14 tablet 0 clobetasol (TEMOVATE) 0.05 % ointment APPLY TO AFFECTED AREAS ONCE A DAY AT NIGHT TIME EXTERNALLY 14 DAY(S) albuterol HFA (PROAIR HFA) 90 mcg/actuation inhaler Inhale 2 Puffs as instructed every 4 hours as needed for Wheezing/Shortness of Breath. 18 g 5 Blood Pressure Monitor 1 Each as directed. 1 Kit 0 albuterol (PROVENTIL) 2.5 mg /3 mL (0.083 %) nebulizer solution Use 3 mL via nebulizer every 6 hours as needed for Wheezing/Shortness of Breath. 100 Vial 0 EPINEPHrine (ADRENACLICK) 0.3 mg/0.3 mL auto-injector Use as directed MULTIVIT &MINERALS/FERROUS FUM (MULTI VITAMIN ORAL) Take 1 tablet by mouth once daily. cyanocobalamin (VITAMIN B-12) 100 mcg tab Take 100 mcg by mouth once daily. Cholecalciferol, Vitamin D3, (VITAMIN D) 1,000 unit tab Take 1,000 Units by mouth once daily. No current facility-administered medications for this visit. ACTIVE PROBLEM LIST Depression Psoriasis Allergic Reaction Benign Essential Hypertension Foot Sprain Sprain of Right Ankle Eczema Environmental Allergies PAST MEDICAL HISTORY Diagnosis Date Acute sinusitis - Resolved Allergic rhinitis Benign essential hypertension Breast lump - Lt. '98; R '05 Cobalamin deficiency Depression Hyperlipidemia Psoriatic arthritis (HCC) Seasonal allergies Transfusion history PPH with first delivery Urticaria PAST SURGICAL HISTORY Procedure Laterality Date BREAST BIOPSY R benign LAPAROSCOPY DIAGNOSTIC with PAMELA & TL PAST SURGICAL HISTORY OF Left Sebaceous cyst surgery - L breast PAST SURGICAL HISTORY OF 1997 Tubal ligation PAST SURGICAL HISTORY OF Laparotomy, exploration- pelvic cyst and adhesions; Dr. Rahman SKIN LESION BIOPSY left chest wall lipoma Social History Tobacco Use Smoking status: Former Smoker Quit date: 10/09/1992 Years since quittin.7 Smokeless tobacco: Never Used Vaping Use Vaping Use: Never used Substance Use Topics Alcohol use: Yes Comment: social Drug use: No Family History Problem Relation Age of Onset other (HTN) Mother other (DM2) Mother other (M I) Mother 50 Cancer Father leukemia other (HTN) Father other (DM2) Father other (MDS) Father Ovarian cancer Paternal Grandmother other (Diabetes mellitus) Other colon/prostate CA other (Heart disease) Other Hypertension Other other (M I) Paternal Grandfather Review of Systems Constitutional: Negative for activity change, appetite change, chills, fatigue, fever and unexpected weight change. HENT: Positive for ear pain and sinus pressure. Negative for congestion, postnasal drip, sinus pain and sore throat. Reports slight pain in left ear Respiratory: Positive for wheezing. Negative for cough and shortness of breath. Reports occasional SOB and wheezing. Reports using her nebulizer last night and this am. Cardiovascular: Negative for chest pain, palpitations and leg swelling. Gastrointestinal: Negative for abdominal pain, constipation, nausea and vomiting. Neurological: Negative for dizziness and headaches. Objective 07/12/21 1417 BP: 122/62 BP Site: Right Arm BP Position: Sitting BP Cuff Size: Large Adult Pulse: 77 Resp: 18 Temp: 36.8 C (98.3 F) TempSrc: Oral SpO2: 98% Weight: 94.3 kg (208 lb) Height: 158.8 cm (5' 2.5) [facility] 03/24/2013 Physical Exam Vitals and nursing note reviewed. Constitutional: General: She is not in acute distress. Appearance: Normal appearance. She is not ill-appearing. HENT: Head: Normocephalic and atraumatic. Right Ear: Ear canal and external ear normal. A middle ear effusion is present. No mastoid tenderness. Tympanic membrane is not erythematous. Left Ear: Tympanic membrane, ear canal and external ear normal. Nose: Congestion present. Right Turbinates: Swollen. Left Turbinates: Swollen. Right Sinus: Maxillary sinus tenderness present. Left Sinus: Maxillary sinus tenderness present. Mouth/Throat: Lips: [place]. Mouth: Mucous membranes are moist. Pharynx: Oropharynx is clear. No oropharyngeal exudate or posterior oropharyngeal erythema. Tonsils: No tonsillar exudate. Eyes: Conjunctiva/sclera: Conjunctivae normal. Cardiovascular: Rate and Rhythm: Normal rate and regular rhythm. Pulses: Normal pulses. Heart sounds: Normal heart sounds. No murmur heard. Pulmonary: Effort: Pulmonary effort is normal. No respiratory distress. Breath sounds: Normal breath sounds. No wheezing, rhonchi or rales. Skin: General: Skin is warm and dry. Neurological: Mental Status: She is alert and oriented to person, place, and time. Psychiatric: Mood and Affect: Mood normal. Behavior: Behavior normal. Thought Content: Thought content normal. Judgment: Judgment normal. ASSESSMENT/PLAN: 1. Rhinosinusitis - ICD9: 473.9, ICD10: J31.0, J32.9 (primary diagnosis) - Will begin treatment with Augmentin 875 mg PO BID for 7 days - The patient should also be given OTC decongestants prn, OTC cough and cold meds as needed, behind the counter Pseudoephedrine, warm salt water gargles, throat lozenges and/or OTC throat spray as needed, nasal saline gtts and flonase the first 5-7 days of treatment. - Supportive care with plenty of fluids, rest, and analgesia prn. - Follow up in 3-5 days if symptoms persist or worsen. - PREDNISONE 20 MG TABLET - FLUTICASONE PROPIONATE 50 MCG/ACTUATION NASAL SPRAY,SUSPENSION - AMOXICILLIN 875 MG-POTASSIUM CLAVULANATE 125 MG TABLET 2. Mild intermittent asthma with acute exacerbation - ICD9: 493.92, ICD10: J45.21 Mild intermittent Asthma stable - Continue current meds - Avoidance of triggers recommended - PREDNISONE 20 MG TABLET Toan Gurrola APRN.AUTOMATION SALES MANAGER documented in this encounter [facility] Evaluation note Diagnosis Rhinosinusitis- Primary Unspecified sinusitis (chronic) Mild intermittent asthma with acute exacerbation Unspecified asthma, with exacerbation [facility] Diagnosis Acute non-recurrent maxillary sinusitis- Primary Acute effusion of right ear Cough [facility] Diagnosis Mild intermittent asthma with acute exacerbation Unspecified asthma, with exacerbation [facility] Diagnosis Rhinosinusitis Unspecified sinusitis (chronic) [facility] Diagnosis Wellness examination- Primary Mild intermittent asthma with acute exacerbation Unspecified asthma, with exacerbation Benign essential hypertension Essential hypertension, benign Environmental allergies Other allergy, other than to medicinal agents Depression, unspecified depression type Lateral epicondylitis of left elbow Lateral epicondylitis of elbow Encounter for screening mammogram for malignant neoplasm of breast Other screening mammogram Screening for lipid disorders Screening for thyroid disorder Need for shingles vaccine Need for prophylactic vaccination and inoculation against other viral diseases [facility] Diagnosis Lateral epicondylitis of left elbow- Primary Lateral epicondylitis of elbow [facility] Diagnosis Onset Date Resolution Status Atrophic vaginitis acute Encounter for routine gynecological examination noneactive [facility] Work Phone: Evaluation note* Diagnosis Depression, unspecified depression type Benign essential hypertension Essential hypertension, benign [facility] Diagnosis Right foot pain Pain in limb [facility] Diagnosis Plantar fasciitis- Primary Plantar fascial fibromatosis Pain in right foot Pain in limb Difficulty walking Difficulty in walking [facility] Diagnosis Acute cough- Primary SOB (shortness of breath) Shortness of breath Viral URI Acute upper respiratory infections of unspecified site [facility] Diagnosis Fatigue, unspecified type- Primary Environmental allergies Other allergy, other than to medicinal agents Mild intermittent asthma with acute exacerbation Unspecified asthma, with exacerbation documented in this encounter [facility] note* Diagnosis Bacterial sinusitis- Primary Unspecified sinusitis (chronic) Nasal congestion Other diseases of nasal cavity and sinuses Sinus pressure Other diseases of nasal cavity and sinuses documented in this encounter [facility] note* Diagnosis Onset Date Resolution Status Climacteric acute Encounter for routine gynecological examination noneactive [facility] Work Phone: Evaluation note* Diagnosis Viral URI- Primary Acute upper respiratory infections of unspecified site Acute cough Nasal congestion Other diseases of nasal cavity and sinuses Myalgias documented in this encounter [facility] note* Diagnosis Dizziness- Primary Dizziness and giddiness Benign paroxysmal positional vertigo of right ear documented in this encounter [facility] note* Diagnosis Dizziness- Primary Dizziness and giddiness Benign paroxysmal positional vertigo of right ear Posture abnormality Abnormal posture documented in this encounter [facility] note* Diagnosis Dizziness- Primary Dizziness and giddiness Benign paroxysmal positional vertigo of right ear Posture abnormality Abnormal posture documented in this encounter [facility] note* Diagnosis Acute cough- Primary Wheezing SOB (shortness of breath) Shortness of breath documented in this encounter [facility] note* Diagnosis Dizziness- Primary Dizziness and giddiness Benign paroxysmal positional vertigo of right ear documented in this encounter [facility] note* Diagnosis Posture abnormality- Primary Abnormal posture documented in this encounter [facility] note* Diagnosis Posture abnormality- Primary Abnormal posture Dizziness Dizziness and giddiness Benign paroxysmal positional vertigo of right ear documented in this encounter [facility] note* Diagnosis Posture abnormality- Primary Abnormal posture Dizziness Dizziness and giddiness Benign paroxysmal positional vertigo of right ear documented in this encounter [facility] note* Diagnosis Itchy eyes- Primary Other ill-defined disorder of eye Swelling of left eyelid, unspecified eyelid documented in this encounter [facility] for referral (narrative)* Diagnostic Procedure Only (Routine) - Pending Review Specialty Diagnoses / Procedures Referred By Uri shea Referred To Contact [facility] Diagnoses Encounter for screening mammogram for malignant neoplasm of breast Procedures SAFIA SCREENING SCREENING MAMMOGRAPHY BI 2-VIEW BREAST INC CAD Toan Gurrola, BINGO CHECKER.AUTOMATION SALES MANAGER [address] [place] [address] [facility] [address] [place] [address] Referral ID Status Reason Start Date Expiration Date Visits Requested Visits Authorized [id number] Pending Review Auto-Generat ed Referral 09/11/2021 10/11/2022 1 1 [facility] for referral (narrative)* Diagnostic Procedure Only (Routine) - Closed Specialty Diagnoses / Procedures Referred By Contac t Referred To Contact XR IMAGING Diagnoses Right foot pain Procedures XR FOOT GENERAL 3V AP/LAT/OBL RIGHT RADEX FOOT COMPLETE MINIMUM 3 VIEWS Toan Gurrola APRN.AUTOMATION SALES MANAGER [address] [place] [address] Xr Imaging Referral ID Status Reason Start Date Expiration Date V isits Requested Visits Authorized [id number] Closed Auto-Generate d Referral 11/30/2021 12/30/2022 1 1 [facility] for visit Narrative* Diagnostic Procedure Only (Routine) - Closed Specialty Diagnoses / Procedures Referred By Contac t Referred To Contact XR IMAGING Diagnoses Right foot pain Procedures XR FOOT GENERAL 3V AP/LAT/OBL RIGHT RADEX FOOT COMPLETE MINIMUM 3 VIEWS Toan Gurrola BINGO CHECKER.AUTOMATION SALES MANAGER [address] [place] [address] Xr Imaging Referral ID Status Reason Start Date Expiration Date V isits Requested Visits Authorized [id number] Closed Auto-Generate d Referral 11/30/2021 12/30/2022 1 1 [facility] Summary Purpose Family History No Family History Records FoundNo Family History Records FoundNo Family History Records FoundNo Family History Records FoundNo Family History Records FoundNo Family History Records FoundNo Family History Records Found Advance Directives No Advanced Directives Records FoundDocuments on File Type Date Recorded Patient Black Leather Trimmer Expl anation Advance Directive(s) 04/03/2021 6:25 PM Advance Directive(s) 06/01/2020 10:30 AM Advance Directive(s) 05/15/2020 11:17 AM Advance Directive(s) 12/03/2019 3:54 PM Advance Directive(s) 05/20/2019 6:22 AM Advance Directive(s) 05/19/2019 7:58 AM Advance Directive(s) 11/15/2018 2:36 PM Advance Directive(s) 05/15/2018 6:33 PM Advance Directive(s) 08/05/2017 5:25 AM Documents on File Type Date Recorded Patient Black Leather Trimmer Expl anation Advance Directive(s) 04/03/2021 6:25 PM Advance Directive(s) 06/01/2020 10:30 AM Advance Directive(s) 05/15/2020 11:17 AM Advance Directive(s) 12/03/2019 3:54 PM Advance Directive(s) 05/20/2019 6:22 AM Advance Directive(s) 05/19/2019 7:58 AM Advance Directive(s) 11/15/2018 2:36 PM Advance Directive(s) 05/15/2018 6:33 PM Advance Directive(s) 08/05/2017 5:25 AM Chief Complaint and Reason for Visit Chief Complaint Annual (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 ASSISTANT) SCREENING Reason for Visit Atrophic vaginitis Encounter for routine gynecological examination Chief Complaint Annual (ORTHODONTIC TECHNICIAN ASSISTANT) PAP SCREENING Reason for Visit Climacteric Encounter for routine gynecological examination Additional Source Comments INFORMATION SOURCE (unrecogn ized section and content) DATE CREATED AUTHOR 05/14/2018 [facility] DATE CREATED AUTHOR AUTHOR'S ORGANIZ ATION 05/15/2018 [facility] DATE CREATED AUTHOR AUTHOR'S ORGANIZ ATION 06/02/2020 [facility] DATE CREATED AUTHOR AUTHOR'S ORGANIZ ATION 07/30/2024 [facility] DATE CREATED AUTHOR AUTHOR'S ORGANIZ ATION 09/30/2024 [facility] DATE CREATED AUTHOR AUTHOR'S ORGANIZ ATION 11/15/2024 [facility] DATE CREATED AUTHOR AUTHOR'S ORGANIZ ATION 11/20/2024 [facility] Source Comments (unrecognize d section and content) In the event this informatio n is protected by the Federal Confidentiality of Alcohol and Drug Abuse Patient Records regulations: The Federal rules restrict any use of the information to criminally investigate or prosecute any alcohol or drug abuse patient.[facility] the event this information is protected by the Federal Confidentiality of Alcohol and Drug Abuse Patient Records regulations: The Federal rules restrict any use of the information to criminally investigate or prosecute any alcohol or drug abuse patient.[facility] the event this information is protected by the Federal Confidentiality of Alcohol and Drug Abuse Patient Records regulations: The Federal rules restrict any use of the information to criminally investigate or prosecute any alcohol or drug abuse patient.[facility] the event this information is protected by the Federal Confidentiality of Alcohol and Drug Abuse Patient Records regulations: The Federal rules restrict any use of the information to criminally investigate or prosecute any alcohol or drug abuse patient.[facility] the event this information is protected by the Federal Confidentiality of Alcohol and Drug Abuse Patient Records regulations: The Federal rules restrict any use of the information to criminally investigate or prosecute any alcohol or drug abuse patient.[facility] the event this information is protected by the Federal Confidentiality of Alcohol and Drug Abuse Patient Records regulations: The Federal rules restrict any use of the information to criminally investigate or prosecute any alcohol or drug abuse patient.[facility] the event this information is protected by the Federal Confidentiality of Alcohol and Drug Abuse Patient Records regulations: The Federal rules restrict any use of the information to criminally investigate or prosecute any alcohol or drug abuse patient.[facility] the event this information is protected by the Federal Confidentiality of Alcohol and Drug Abuse Patient Records regulations: The Federal rules restrict any use of the information to criminally investigate or prosecute any alcohol or drug abuse patient.[facility] the event this information is protected by the Federal Confidentiality of Alcohol and Drug Abuse Patient Records regulations: The Federal rules restrict any use of the information to criminally investigate or prosecute any alcohol or drug abuse patient.[facility] the event this information is protected by the Federal Confidentiality of Alcohol and Drug Abuse Patient Records regulations: The Federal rules restrict any use of the information to criminally investigate or prosecute any alcohol or drug abuse patient.[facility] the event this information is protected by the Federal Confidentiality of Alcohol and Drug Abuse Patient Records regulations: The Federal rules restrict any use of the information to criminally investigate or prosecute any alcohol or drug abuse patient.[facility] the event this information is protected by the Federal Confidentiality of Alcohol and Drug Abuse Patient Records regulations: The Federal rules restrict any use of the information to criminally investigate or prosecute any alcohol or drug abuse patient.[facility] the event this information is protected by the Federal Confidentiality of Alcohol and Drug Abuse Patient Records regulations: The Federal rules restrict any use of the information to criminally investigate or prosecute any alcohol or drug abuse patient.[facility] the event this information is protected by the Federal Confidentiality of Alcohol and Drug Abuse Patient Records regulations: The Federal rules restrict any use of the information to criminally investigate or prosecute any alcohol or drug abuse patient.[facility] the event this information is protected by the Federal Confidentiality of Alcohol and Drug Abuse Patient Records regulations: The Federal rules restrict any use of the information to criminally investigate or prosecute any alcohol or drug abuse patient.[facility] the event this information is protected by the Federal Confidentiality of Alcohol and Drug Abuse Patient Records regulations: The Federal rules restrict any use of the information to criminally investigate or prosecute any alcohol or drug abuse patient.[facility] HospitalIn the event this information is protected by the Federal Confidentiality of Alcohol and Drug Abuse Patient Records regulations: The Federal rules restrict any use of the information to criminally investigate or prosecute any alcohol or drug abuse patient.[facility] HospitalIn the event this information is protected by the Federal Confidentiality of Alcohol and Drug Abuse Patient Records regulations: The Federal rules restrict any use of the information to criminally investigate or prosecute any alcohol or drug abuse patient.[facility] Hospital[facility] the event this information is protected by the Federal Confidentiality of Alcohol and Drug Abuse Patient Records regulations: The Federal rules restrict any use of the information to criminally investigate or prosecute any alcohol or drug abuse patient.[facility] HospitalIn the event this information is protected by the Federal Confidentiality of Alcohol and Drug Abuse Patient Records regulations: The Federal rules restrict any use of the information to criminally investigate or prosecute any alcohol or drug abuse patient.[facility] HospitalIn the event this information is protected by the Federal Confidentiality of Alcohol and Drug Abuse Patient Records regulations: The Federal rules restrict any use of the information to criminally investigate or prosecute any alcohol or drug abuse patient.[facility] HospitalIn the event this information is protected by the Federal Confidentiality of Alcohol and Drug Abuse Patient Records regulations: The Federal rules restrict any use of the information to criminally investigate or prosecute any alcohol or drug abuse patient.[facility] HospitalIn the event this information is protected by the Federal Confidentiality of Alcohol and Drug Abuse Patient Records regulations: The Federal rules restrict any use of the information to criminally investigate or prosecute any alcohol or drug abuse patient.[facility] HospitalIn the event this information is protected by the Federal Confidentiality of Alcohol and Drug Abuse Patient Records regulations: The Federal rules restrict any use of the information to criminally investigate or prosecute any alcohol or drug abuse patient.[facility] HospitalIn the event this information is protected by the Federal Confidentiality of Alcohol and Drug Abuse Patient Records regulations: The Federal rules restrict any use of the information to criminally investigate or prosecute any alcohol or drug abuse patient.[facility] HospitalIn the event this information is protected by the Federal Confidentiality of Alcohol and Drug Abuse Patient Records regulations: The Federal rules restrict any use of the information to criminally investigate or prosecute any alcohol or drug abuse patient.[facility]In the event this information is protected by the Federal Confidentiality of Alcohol and Drug Abuse Patient Records regulations: The Federal rules restrict any use of the information to criminally investigate or prosecute any alcohol or drug abuse patient.[facility] HospitalIn the event this information is protected by the Federal Confidentiality of Alcohol and Drug Abuse Patient Records regulations: The Federal rules restrict any use of the information to criminally investigate or prosecute any alcohol or drug abuse patient.[facility]In the event this information is protected by the Federal Confidentiality of Alcohol and Drug Abuse Patient Records regulations: The Federal rules restrict any use of the information to criminally investigate or prosecute any alcohol or drug abuse patient.[facility]In the event this information is protected by the Federal Confidentiality of Alcohol and Drug Abuse Patient Records regulations: The Federal rules restrict any use of the information to criminally investigate or prosecute any alcohol or drug abuse patient.[facility] HospitalIn the event this information is protected by the Federal Confidentiality of Alcohol and Drug Abuse Patient Records regulations: The Federal rules restrict any use of the information to criminally investigate or prosecute any alcohol or drug abuse patient.[facility] HospitalIn the event this information is protected by the Federal Confidentiality of Alcohol and Drug Abuse Patient Records regulations: The Federal rules restrict any use of the information to criminally investigate or prosecute any alcohol or drug abuse patient.[facility] Reason for Visit (unrecogniz ed section and content) Reason Comments PT Progress Note PT Discharge Specialty Diagnoses / Procedures Referred By Contac t Referred To Contact Physical Therapy / PHYSICAL THERAPY Diagnoses Consult/ BPPV order scanned Procedures NEW RS PT BPPV [place] [address] [facility] [address] [place] [address] Phone: tel: fax: Saritha Jaramillo, PT [address] [place] [address] Phone: tel: Referral ID Status Reason Start Date Expiration Date V isits Requested Visits Authorized [id number] Authorized 06/26/2024 03/24/2025 40 40 Reason Comments Physical Therapy Specialty Diagnoses / Procedures Referred By Contac t Referred To Contact Physical Therapy / PHYSICAL THERAPY Diagnoses Consult/ BPPV order scanned Procedures NEW RS PT BPPV [place] [address] [facility] [address] [place] [address] Phone: tel: fax: Saritha Jaramillo, PT [address] [place] [address] Phone: tel: Reason Comments Cough Reason Comments Cough x1 week Reason Comments Refill Request Reason Comments Wellness Reason Comments Results Reason Comments Patient Question Reason Onset Date Comments Refill Request 11/30/2021 Reason Comments Pain (foot) Right foot pain Reason Comments Follow Up Reason Comments Viral Syndrome Had steroid 2 days a go, right ear is painful. Reason Onset Date Comments ER F/U 01/31/2022 Reason Comments Congestion, Head Pressure, Right Ear Meryl n Has tried Mucinex D, Ibuprofen. Reason Onset Date Comments Thrush 02/14/2023 Pt using inhaler Cough 02/14/2023 Increase in manley r use Reason Onset Date Comments UTI 12/12/2022 Reason Onset Date Comments Med Refill 09/02/2023 Reason Comments Viral Syndrome Cough and congestion , some body aches Reason Onset Date Comments Diarrhea 10/19/2023 Medication Problem 10/19/2023 Reason Comments PT Eval Reason Comments wheez Coughing. Tightness on chest. Wheezing when coughing. Minor SOB. Hard to breath. Always starts then end of June going into july. Reason Comments Physical Therapy PT Progress Note Reason Onset Date Comments Cough 07/27/2024 Reason Comments Eye Problem Eye is swollen, both eyes are itchy. Care Teams (unrecognized sec tion and content) Safety Instructor Relationship Specialty Start Date End Date Toan Gurrola BINGO CHECKER.AUTOMATION SALES MANAGER [address] [place] [address] PCP - General Internal Medicine 05/28/18 Safety Instructor Relationship Specialty Start Date End Date Toan Gurrola, BINGO CHECKER.AUTOMATION SALES MANAGER [address] [place] [address] PCP - General Internal Medicine 05/28/18 Safety Instructor Relationship Specialty Start Date End Date Toan Gurrola BINGO CHECKER.AUTOMATION SALES MANAGER [address] [facility] [address] PCP - General Internal Medicine 05/28/18 Safety Instructor Relationship Specialty Start Date End Date Toan Gurrola BINGO CHECKER.AUTOMATION SALES MANAGER [address] [facility] [address] PCP - General Internal Medicine 05/28/18 Safety Instructor Relationship Specialty Start Date End Date Toan Gurrola BINGO CHECKER.AUTOMATION SALES MANAGER [address] [facility] [address] PCP - General Internal Medicine 05/28/18 Safety Instructor Relationship Specialty Start Date End Date Toan Gurrola, BINGO CHECKER.AUTOMATION SALES MANAGER [address] [facility] [place] [address] PCP - General Internal Medicine 05/28/18 Safety Instructor Relationship Specialty Start Date End Date Toan Gurrola BINGO CHECKER.AUTOMATION SALES MANAGER [address] [facility] [place] [place] [address] PCP - General Internal Medicine 05/28/18 Safety Instructor Relationship Specialty Start Date End Date Toan Gurrola, BINGO CHECKER.AUTOMATION SALES MANAGER [address] [place] [address] PCP - General Internal Medicine 05/28/18 Safety Instructor Relationship Specialty Start Date End Date Toan Gurrola BINGO CHECKER.AUTOMATION SALES MANAGER [address] [place] [address] PCP - General Internal Medicine 05/28/18 Safety Instructor Relationship Specialty Start Date End Date Toan Gurrola BINGO CHECKER.AUTOMATION SALES MANAGER [address] [facility] [place] [address] PCP - General Internal Medicine 05/28/18 Safety Instructor Relationship Specialty Start Date End Date Toan Gurrola BINGO CHECKER.AUTOMATION SALES MANAGER [address] [facility] [facility] [place] [address] PCP - General Internal Medicine 05/28/18 Safety Instructor Relationship Specialty Start Date End Date Toan Gurrola BINGO CHECKER.AUTOMATION SALES MANAGER [address] [facility] [place] [address] PCP - General Internal Medicine 05/28/18 Safety Instructor Relationship Specialty Start Date End Date Toan Gurrola, BINGO CHECKER.AUTOMATION SALES MANAGER [address] [place] [address] PCP - General Internal Medicine 05/28/18 Safety Instructor Relationship Specialty Start Date End Date Toan Gurrola, BINGO CHECKER.AUTOMATION SALES MANAGER [address] [place] [address] PCP - General Internal Medicine 05/28/18 Safety Instructor Relationship Specialty Start Date End Date Toan Gurrola, BINGO CHECKER.AUTOMATION SALES MANAGER [address] [place], [place] [id number] PCP - General Internal Medicine 05/28/18 Team Status: Active Member Role Status Dates Toan Gurrola CERT OCCUPATIONAL THERAPY ASST, CERT OCCUPATIONAL THERAPY ASST-C Family Provider Active Dr. Giselle Cooper , Primary Care Provider Active Team Status: Inactive Member Role Status Dates Toan Gurrola CERT OCCUPATIONAL THERAPY ASST, CERT OCCUPATIONAL THERAPY ASST-C Primary Care Provider, Referri ng Provider Active Caridad Lopez CERT OCCUPATIONAL THERAPY ASST, CERT OCCUPATIONAL THERAPY ASST-C Attending Provider Active Team Status: Inactive Member Role Status Dates Caridad Lopez CERT OCCUPATIONAL THERAPY ASST, CERT OCCUPATIONAL THERAPY ASST-C Attending Provider, Referring Provider Active Dr. Giselle Cooper , Primary Care Provider Active Team Status: Inactive Member Role Status Dates Toan Gurrola CERT OCCUPATIONAL THERAPY ASST, CERT OCCUPATIONAL THERAPY ASST-C Primary Care Provider Active Caridad Lopez CERT OCCUPATIONAL THERAPY ASST, CERT OCCUPATIONAL THERAPY ASST-C Attending Provider, Referring Provider Active Safety Instructor Relationship Specialty Start Date End Date Toan Gurrola, BINGO CHECKER.AUTOMATION SALES MANAGER [address] [place], [place] [id number] PCP - General Internal Medicine 05/28/18 Safety Instructor Relationship Specialty Start Date End Date Giselle Cooper DO [address] [place], [place] [address] PCP - General 04/11/18 Safety Instructor Relationship Specialty Start Date End Date Giselle Cooper DO [address] [place], [place] [id number] PCP - General 04/11/18 Safety Instructor Relationship Specialty Start Date End Date Toan Gurrola, BINGO CHECKER.AUTOMATION SALES MANAGER [address] [place], [place] [id number] PCP - General Internal Medicine 05/28/18 Safety Instructor Relationship Specialty Start Date End Date [place] Giselle AyoubDO [address] [place] [address] PCP - General 04/11/18 Safety Instructor Relationship Specialty Start Date End Date Toan Gurrola, BINGO CHECKER.AUTOMATION SALES MANAGER [address] [place] [address] PCP - General Internal Medicine 05/28/18 Safety Instructor Relationship Specialty Start Date End Date Toan Gurrola, BINGO CHECKER.AUTOMATION SALES MANAGER [address] [place] [address] PCP - General Internal Medicine 05/28/18 Safety Instructor Relationship Specialty Start Date End Date Toan Gurrola, BINGO CHECKER.AUTOMATION SALES MANAGER [address] [place] [address] PCP - General Internal Medicine 05/28/18 Safety Instructor Relationship Specialty Start Date End Date Toan Gurrola, BINGO CHECKER.AUTOMATION SALES MANAGER [address] [place] [address] PCP - General Internal Medicine 05/28/18 Safety Instructor Relationship Specialty Start Date End Date Giselle Cooper AnitraDO [address] [place] [address] PCP - General 04/11/18 Safety Instructor Relationship Specialty Start Date End Date Toan Gurrola, BINGO CHECKER.AUTOMATION SALES MANAGER [address] [place] [address] PCP - General Internal Medicine 05/28/18 Safety Instructor Relationship Specialty Start Date End Date Toan Gurrola, BINGO CHECKER.AUTOMATION SALES MANAGER [address] [place] [address] PCP - General Internal Medicine 05/28/18 Safety Instructor Relationship Specialty Start Date End Date Giselle Cooper MD [address] [place] [address] PCP - General Internal Medicine 09/27/24 Goals (unrecognized section and content) Goals may be documented in a n alternate sectionGoals may be documented in an alternate section FOR RECORDS PERTAINING TO PATIENTS WHO ARE OR HAVE BEEN ENROLLED IN A CHEMICAL DEPENDENCY/SUBSTANCEABUSE PROGRAM, SOME INFORMATION MAY BE OMITTED. This clinical summary was aggregated from multiple sources. Caution should be exercised in using it in the provision of clinical care. This summary normalizes information from multiple sources, and as a consequence, information in this document may materially change the coding, format and clinical context of patient data. In addition, data may be omitted in some cases. CLINICAL DECISIONS SHOULD BE BASED ON THE PRIMARY CLINICAL RECORDS. [facility]. provides no warranty or guarantee of the accuracy or completeness of information in this document.
== END | disposition home or self-care (01) ==
LOC: OPBI 14:26
PROVIDERS: PCP Family Medicine; Referring Provider Family Medicine; Visit Provider Family Medicine
DX: Z12.31 Encounter for screening mammogram for malignant neoplasm of breast (principal)
CPT/HCPCS: 77063; 77067